=== PATIENT | female | born 1975 | race Caucasian/White ===

== ENCOUNTER 2020-02-04 09:54 | Outpatient (CLI) | payer MEDICARE, MEDICAID, SELFPAY ==
--- NOTE | ~2020-02-04 | XR_ITS ---
XR abdomen/kub 1V 02/04/2020 10:32 INDICATION: Chronic cystitis TECHNIQUE: KUB COMPARISON: None FINDINGS: Bowel gas pattern is normal. There is no evidence of free air, mass, organomegaly, ascites or obstruction. No abnormal calculi are seen. There are cholecystectomy clips. There is dextroscoli osis of the lumbar spine. The bones appear intact. IMPRESSION: 1: No acute abdominal abnormality identified. Reviewed, dictated and finalized at location A.
--- NOTE | ~2020-02-04 | CT_ITS ---
EXAMINATION: CT abdomen pelvis wo con DATE: 02/04/2020 10:27 INDICATION: Chronic cystitis. Lower abdominal and back pain for one month. TECHNIQUE: Computed tomography (CT) of the abdomen and pelvis was performed without intravenous contr ast. Automated exposure control and iterative reconstruction technique were employed. Exam dose: 161 4.80 mGy-cm total exam DLP. COMPARISON: None. FINDINGS: There are minimal focal patchy groundglass infiltrates in the lower lung zones. Normal heart size. No pericardial or pleural effusion. Status post cholecystectomy. No bile duct dilatation. No hepatic, splenic, pancreatic, and adrenal or renal space-occupying mass lesion is evident on this limited noncontrast examination. Normal caliber of the abdominal aorta. No intraperitoneal or retroperitoneal or pelvic mass lesion or adenopathy or ascites. The uterus, adnexal areas and urinary bladder are unremarkable other than moderate diffuse thickening of the urinary bladder wall. No pericystic fat stranding or fluid is noted. There is a small sliding hiatal hernia. Normal appendix. No bowel obstruction, bowel wall thickening, pneumatosis or intraperitoneal free air . Small fat-containing umbilical hernia. There is degenerative change at the apophyseal joints at L5-S1 with associated minimal grade 1 jacques listhesis at L5-S1. There is mild degenerative disc disease at L5-S1. No suspicious osteolytic or osteoblastic lesions are noted. IMPRESSION: Status post cholecystectomy Small sliding hiatal hernia Moderate diffuse thickening of the urinary bladder wall which may be consistent with clinical diagnos is of cystitis Reviewed, dictated and finalized at Location A. Reviewed, dictated and finalized at location A. IMPRESSION: Status post cholecystectomy Small sliding hiatal hernia Moderate diffuse thickening of the urinary bladder wall which may be consistent with clinical diagnosis of cystitis
== END 2020-02-04 09:55 | disposition home or self-care (01) ==
LOC: ANHIMG 10:05
PROVIDERS: PCP Family Medicine; Visit Provider Urology
DX: N30.20 Other chronic cystitis without hematuria (principal); Z90.49 Acquired absence of other specified parts of digestive tract; K44.9 Diaphragmatic hernia without obstruction or gangrene; N32.9 Bladder disorder, unspecified
CPT/HCPCS: 74018; 74176

== ENCOUNTER 2020-04-13 16:00 | Outpatient (RCR) | payer MEDICARE, MEDICAID, SELFPAY ==
--- NOTE | 2020-03-16 14:42 | OTOPEVAL ---
OCCUPATIONAL THERAPY EVALUATION REPORT AND DISCHARGE NOTE 03/16/2020 Mireya presents to outpatient OT with dx of MS. UE strength is WFL. Sitting balance is WFL. Distally, fine motor coordination is moderately impaired in the right hand, WFL in the left hand. Issued fine motor coordination HEP and strengthening program for patient to complete. She is independent with all materials and in agreement with discharge. Thank you [facility] Please review, sign, date and return this Discharge Note TAYLOR. I agree with and certify that the following plan of care is medically necessary. Referring Physician Date Referring Provider: Dr. Vikki Morgan *OT Outpatient Evaluation Start: 03/16/20 13:16 Freq: Status: Active Protocol: Document 03/16/20 13:16 LEXUS (Rec: 03/16/20 14:10 LEXUS [id number]) Therapy Assessment Status Assessment Status Assessment Status Evaluation Outpatient Past Medical History Past Medical History Source of Past Medical History Patient Neurological History Hx Multiple Sclerosis Yes Cardiovascular History Hx Hypercholesterolemia Yes Gastrointestinal History Hx Cholecystectomy Yes Genitourinary History Hx Urinary Tract Infection Yes: Recurrent, self caths Musculoskeletal History Hx Arthritis Yes Hx Fractures Yes: Right LE Evaluation Information Problem Diagnosis MS Onset dx 2001 Subjective Information Mireya states she goes for Query Text:As Reported By Patient/ Tysabri infusions 1x/month. Family Follows up with neurologist every 6 months. States she feels as though she has been getting weaker over the past year. She states that due to COVID she has been less active , getting out less, etc. Prior Level of Function Activity Level (Last 3 Months) Hand Dominance Left Activity of Daily Living Ability Needs Some Help Indoor/Home Mobility Dependent Community Mobility Dependent Stairs Ability Not-Applicable Cooking No Cleaning No Laundry No Shopping No Driving No Home Setting Home Type Apartment,Single Level Environmental Barriers Stairs, None Support Available Hired Assistance [employer] Responsibilities Comment Hired assist 6 days/week for 6 hours/day (except only 3 hrs on Monday) Mobility Assistive Devices (Used Last 3 Wheelchair, Motorized Months) Bathroom Environment
--- NOTE | 2020-03-16 17:06 | PTOPEVAL ---
PHYSICAL THERAPY EVALUATION Thank you for referring Mireya Chapa to [facility].? Mireya was evaluated for the diagnosis of exacerbated MS. The patient is scheduled to be seen for therapy? 2 x/week for 4 weeks. Please review, sign, date and return this plan of care TAYLOR. I agree with and certify that the following plan of care is medically necessary. Referring Physician Date Attending Provider: Dr. Vikki Morgan *PT Outpatient Evaluation Start: 03/16/20 14:20 Freq: Status: Active Protocol: Document 03/16/20 14:28 MLV (Rec: 03/16/20 15:54 [facility] [id number]) Therapy Assessment Status Assessment Status Evaluation Evaluation Information Problem Diagnosis MS exacerbation Onset 6-9 months Cause none Additional Evaluation Detail Patient was diagnosed with MS in 2001-currently the relaxed/ remission type. Patient noticed an increased weakness for 6-9 months. The patient has had home therapy in the past. The patient is concerned about falling from weakness, and patient lives alone. Subjective Information The patient wants to get Query Text:As Reported By Patient/ stronger so safer with Family transfers and home activities. The patient used a walker postpartum nurse until about 6-9 months ago. The patient hopes to use walker some if she can get to that point, and get stronger in her legs. Patient also has a concern about excessive swelling at her legs and inquires about how to fix . Prior Level of Function Activity Level (Last 3 Months) Occupation disability Hand Dominance Left Activity of Daily Living Ability Needs Some Help Indoor/Home Mobility Independent Community Mobility Independent Stairs Ability Not-Applicable Functional Cognition (Planning, Shopping Independent , Taking Medications) Cooking No Cleaning No Laundry No Shopping No Driving No Home Setting Home Type Apartment Environmental Barriers Stairs, None Living Situation Alone Support Available Hired Assistance Ca
--- NOTE | 2020-04-06 13:32 | PCPTNOTE ---
Patient called & cancelled scheduled appointment this date due to transportation issues.
--- NOTE | 2020-04-13 17:34 | PCPTNOTE ---
Patient arrived to therapy for last visit, scheduled to be discharged. General discussion on diagnosis and prognosis answering any further questions patient may have with therapy and discharge plans. Patient stated will call ortho for information on knee replacement and has therapy's phone number for any further questions that may come up in the future.
--- NOTE | 2020-04-15 14:54 | PTOPEVAL ---
PHYSICAL THERAPY DISCHARGE SUMMARY Thank you for referring Mireya Chapa to [facility].? The patient has been seen 4 visits with a dx of MS/weakness with no change in functional ability and no goals are being met. The patient has severe right knee pain with any weightbearing activities. D/C physical therapy. Please review, sign, date and return this plan of care. I agree with and certify the following plan of care. Referring Physician Date Attending Provider: Vikki HumphreysPT Outpatient Discharge Start: 03/16/20 14:20 Freq: Protocol: Document 04/15/20 14:44 MLV (Rec: 04/15/20 14:54 MLV [id number]) Therapy Assessment Status Assessment Status Discharge Evaluation Information Problem Additional Evaluation Detail Discussed extensively details of patient's status and progress with concerns regarding lack of progress or ability to advance because of the patient's severe right knee pain combined with severity of MS status. The patient is unable to tolerate gait/weightbearing activities without severe right knee pain. The patient feels she cannot benefit from skilled PT at this time and plans to talk with her doctor regarding options for the right knee problem. Pain Assessment Timing of Pain Assessment Timing of Pain Assessment Post-Treatment Pain Scale Pain Scale Used Numeric (1 - 10) Self Report Pain Assessment Right Knee(s) Reported Pain Level 2 Pain Frequency Acute Greatest Pain Intensity 10 Pain Aggravating Factors Walking,Weight Bearing/ Standing Pain Behaviors Grimacing,Guarding,Limping Generalized Reported Pain Level 2 Pain Description Aching Pain Frequency Chronic Pain Score Pain Score 2,2: Self Report Interventions Used Interventions Used By Clinicians Education,Position Change Pain Relief Interventions Used By Inactivity/Rest,Position Patient Change,Sitting Lower Extremity Range of Motion General Lower Extremity Range of Motion Limitations Edema,Muscle Weakness,Soft Tissue Restriction Gross Lower Extremity Range of Motion limits remain due to continued Comments tone, swelling and obesity Lower Extremity Muscle Strength Testing General Lower Extremity Strength
== END 2020-04-16 11:55 | disposition home or self-care (01) ==
LOC: ANHPT 16:00
PROVIDERS: PCP Family Medicine
DX: G35 Multiple sclerosis (principal)
CPT/HCPCS: 97110; 97116; 97162; 97165; 97530

== ENCOUNTER 2021-11-19 01:13 | Day surgery (SDC) | payer MEDICARE, MEDICAID, SELFPAY ==
[2021-11-11 12:30] VITALS: BMI 44.2
--- NOTE | 2021-11-11 12:54 | PC.NURSE ---
Report to the Outpatient Waiting Room, entrance under the green pavilion located off [facility], at time 0745 on date 11/19/21. OR Time: 0945. - You and your visitor will be asked a series of questions to screen for COVID 19 for your protection. - Only one visitor is allowed at this time. - The patient visitor is requested to leave or wait in car when not with patient. - A mask is required within the hospital. Patients may have clear liquids (water, carbonated beverages, clear teas, apple juice) until 3 hours prior to surgery with a maximum of 20 ounces. - No food from midnight until time of surgery Take the following medications with a SIP of water the morning of surgery: BACLOFEN, DULOXETINE, VENLAFAXINE Medications to discontinue per physician: VITAMINS/SUPPLEMENTS Date to take last dose: 11/15/21 Please no make-up, nail icelandic, hairspray, perfume, deodorant, or body powder the day of surgery. No jewelry (including any body piercings) or valuables the day of surgery, leave them at home. Please take a shower or bath the night before, or the morning of, surgery with an antibacterial soap. Wear comfortable, loose fitting clothing. - Jewelry must be removed prior to entering the operating room. Rings and piercings that are not removed may be cut off. - The hospital will not accept responsibility for valuables. - Please leave all valuables, including medications, at home the day of surgery. If you are going home after surgery, a licensed medical delivery driver must drive you home. - NO public transportation without another adult. - We recommend that an adult stay with you for 24 hours following discharge. - We also recommend that you do not drive, make important decision, drink alcoholic beverages, or take any drugs that were not prescribed by your health care provider for at least 24 hours after your discharge time. Follow any additional instructions given to you from your surgeon. If you or anyone in your household have experienced Covid symptoms in the past week, please notify your surgeon or the nurse liaison at the phone number below for possible testing. Telephone instructions given to PT - HÉCTOR VILLARREAL and asked if any additional questions and then verbalized understanding. Patient advised to call surgeon office or pre surgery nurse liaison [phone] if any additional questions.
--- NOTE | 2021-11-15 07:50 | PM.IMHP ---
H&P: HPI History of Present Illness Date/Time: 11/15/21 07:50 Chief Complaint: neurogenic bladder Narrative: 45-year-old with neurogenic bladder. She receives Botox 300 units. I can no longer do any office due to mobility issues Review of Systems Review of Systems: All systems reviewed & are unremarkable except as noted in HPI and below PMFSH Social History Social History Smoking packs per day: 0.5 Smoking cigarettes per day: 10.0 Years smoked: 10 Smoking pack-years: 5.00 Smoking status: Former smoker Tobacco type: cigarettes Second hand tobacco smoke exposure: No Additional smoking assessment comments: QUIT MANY YEARS AGO Alcohol intake: never Substance use: never Substance use type: does not use Living arrangements: alone Spiritual care concerns: No Meds Home Medications and Allergies Home Medications Medication Instructions Recorded Confirmed Type ascorbic acid (vitamin C) 500 mg 500 mg PO DAILY 11/11/21 11/11/21 History tablet (Vitamin C) baclofen 20 mg tablet 20 mg PO BID 11/11/21 11/11/21 History calcium carbonate 500 mg calcium 500 mg PO DAILY 11/11/21 11/11/21 History (1,250 mg) tablet cholecalciferol (vitamin D3) 50 50 mcg PO DAILY 11/11/21 11/11/21 History mcg (2,000 unit) capsule (Vitamin D3) duloxetine 60 mg capsule,delayed 60 mg PO BID 11/11/21 11/11/21 History release methylphenidate HCl 10 mg tablet 10 mg PO TID 11/11/21 11/11/21 History methylphenidate HCl 20 mg biphasic 20 mg PO BID 11/11/21 11/11/21 History 30-70 capsule,extended release multivitamin 1 tablet PO DAILY 11/11/21 11/11/21 History venlafaxine 150 mg 150 mg PO DAILY 11/11/21 11/11/21 History capsule,extended release 24 hr venlafaxine 75 mg tablet,extended 75 mg PO DAILY 11/11/21 11/11/21 History release 24 hr Allergies Allergy/AdvReac Type Severity Reaction Status Date / Time adhesive tape Allergy Rash Verified 11/11/21 12:17 Exam Narrative: no acute distress normal breathing alert oriented x3 Assessment and Plan Assessment and plan (1) Uninhibited neurogenic bladder: Code(s): N31.9 - Neuromuscular dysfunction of bladder, unspecified Status: Acute Assessment and Plan: cystoscopy with Botox 300 units. This will be done under local
--- NOTE | 2021-11-19 07:12 | WPDHPUPDATE1 ---
History and Physical Update Update Date/Time: 11/19/21 07:12 History and Physical has been reviewed, including an updated exam of the patient. There are NO changes in the patient's condition. Risks, benefits, and alternatives have been discussed and questions answered. Patient agrees to proceed with procedure.
--- NOTE | 2021-11-19 08:50 | SUR.PREOP ---
pt has elected to change case from GIVS, to LOCAL.
[2021-11-19 08:51] VITALS: BP 124/90; PULSE 76; RESP 14; TEMP 36.9; O2SAT 100
[2021-11-19 09:55] VITALS: BP 152/92; PULSE 73; RESP 14; O2SAT 98
[2021-11-19 10:05] VITALS: BP 148/84; PULSE 72; RESP 14; O2SAT 98
[2021-11-19] MEDS: BOTULINUM TOXIN TYPE A (*SPLP) 100 UNITS VIAL XX (10:09)
[2021-11-19 10:10] VITALS: BP 154/83; PULSE 82; RESP 14; O2SAT 97
[2021-11-19] MEDS: BOTULINUM TOXIN TYPE A (*SPLP) 100 UNITS VIAL 200 UNITS XX (10:10)
--- NOTE | 2021-11-19 10:14 | W.PM.PROC2 ---
Procedure Note - Detailed Date of Procedure 11/19/21 Pre-op Diagnosis Reflex Neuropathic Bladder Post-op Diagnosis Same Procedure Performed Cystoscopy with injection of Botox 300 units Surgeon Raman Tracy MD Aircraft Quality Control Inspector None Anesthesia Local Indications Neurogenic bladder. Does intermittent catheterization. Botox 2 units every 3 months Findings Trabeculated bladder Description of Procedure She was correctly identified. Informed consent obtained. She from the operating room. She was prepped and draped in a sterile fashion. Uro jet was applied. His lead to sit for 10 minutes. I then mixed 3 and units of Botox and 30 cc preservative-free saline. I injected throughout the bladder the sub urothelial muscular layer. There was minimal bleeding from the injection sites. She was then taken to her stretcher and taken to recovery room in stable condition Estimated Blood Loss 1 Drains No Packing No Pathology None sent Complications No immediate complications Condition Stable Disposition PACU
[2021-11-19 10:15] VITALS: BP 117/74; PULSE 58; RESP 14; O2SAT 97
== END 2021-11-19 10:37 | disposition home or self-care (01) ==
PROVIDERS: PCP Family Medicine; Visit Provider Urology
PROC: 3E0K8GC Introduction of Other Therapeutic Substance into Genitourinary Tract, Via Natural or Artificial Opening Endoscopic (ICD-10-PCS; CPT 52287; principal; 2021-11-19 09:45)
DX: N31.9 Neuromuscular dysfunction of bladder, unspecified (principal); Z87.891 Personal history of nicotine dependence
CPT/HCPCS: 52287; A9270; J0585

== ENCOUNTER 2022-03-25 00:17 | Day surgery (SDC) | payer MEDICARE, MEDICAID, SELFPAY ==
[2022-03-10 15:19] VITALS: BMI 44.3
--- NOTE | 2022-03-10 15:30 | PC.NURSE ---
Report to the Outpatient Waiting Room, entrance under the green pavilion located off [facility], at time 1000 on 03/25/2022 . Planned Procedure Time: 1100. Time changes happen often and if your time is changed the preop area will call you the afternoon before. - You and your visitor will be asked to self-screen and do not enter if you have any COVID symptoms. - Only one visitor is requested with a max of two and NO children visitors are allowed at this time. - The patient visitor may be requested to leave or wait in car when not with patient due to distancing restrictions. - A mask is optional within the hospital. NO FOOD/DRINK RESTRICTIONS FOR LOCAL ANESTHESIA. Take the following medications with a SIP of water the morning of surgery: AS PER OFFICE INSTRUCTIONS Medications to discontinue per physician Date to take last dose Please no make-up, nail anguillan, hairspray, perfume, deodorant, or body powder the day of surgery. No jewelry (including any body piercings) or valuables the day of surgery, leave them at home. Please take a shower or bath the night before, or the morning of, surgery with an antibacterial soap. Wear comfortable, loose fitting clothing. - Jewelry must be removed prior to entering the operating room. Rings and piercings that are not removed may be cut off. - The hospital will not accept responsibility for valuables. - Please leave all valuables, including medications, at home the day of surgery. If you are going home after surgery, a licensed bobtail driver must drive you home. - NO public transportation without another adult if you receive anesthesia. - We recommend that an adult stay with you for 24 hours following discharge. - We also recommend that you do not drive, make important decision, drink alcoholic beverages, or take any drugs that were not prescribed by your health care provider for at least 24 hours after your discharge time. Follow any additional instructions given to you from your surgeon. If you or anyone in your household have experienced Covid symptoms in the past week, please notify your surgeon or the nurse liaison at the phone number below for possible testing.I Telephone instructions given to patient and asked if any additional questions and then verbalized understanding. Patient advised to call surgeon office or pre surgery nurse liaison [phone] if any additional questions.
--- NOTE | 2022-03-20 16:54 | P.HP_ITS ---
H&P: HPI History of Present Illness Date/Time: 03/20/22 16:55 Chief Complaint: neurogenic bladder Narrative: botox 300U Review of Systems Review of Systems: All systems reviewed & are unremarkable except as noted in HPI and below PMFSH Past Medical History Medical History Allergies Anxiety Arthritis Asthma Cholecystectomy planned Multiple sclerosis Surgical History Surgical History H/O dilation and curettage S/P Botox injection [place] teeth removed Family History Family History Father Diabetes mellitus Hypertension Depression Anxiety Heart disease Mother Depression Anxiety Multiple sclerosis Grandparent Asthma Diabetes mellitus Alcoholism Cerebrovascular accident Disorder of thyroid Social History Social History Smoking packs per day: 0.5 Smoking cigarettes per day: 10.0 Years smoked: 10 Smoking pack-years: 5.00 Smoking status: Former smoker Tobacco type: cigarettes Second hand tobacco smoke exposure: No Additional smoking assessment comments: QUIT MANY YEARS AGO Alcohol intake: current Alcohol use details: VERY RARE Substance use: never Substance use type: does not use Living arrangements: alone Spiritual care concerns: No Meds Home Medications and Allergies Home Medications Medication Instructions Recorded Confirmed Type ascorbic acid (vitamin C) 500 mg 500 mg PO DAILY 11/11/21 03/10/22 History tablet (Vitamin C) baclofen 20 mg tablet 20 mg PO BID 11/11/21 03/10/22 History calcium carbonate 500 mg calcium 500 mg PO DAILY 11/11/21 03/10/22 History (1,250 mg) tablet cholecalciferol (vitamin D3) 50 50 mcg PO DAILY 11/11/21 03/10/22 History mcg (2,000 unit) capsule (Vitamin D3) duloxetine 60 mg capsule,delayed 60 mg PO BID 11/11/21 03/10/22 History release methylphenidate HCl 20 mg biphasic 20 mg PO BID 11/11/21 03/10/22 History 30-70 capsule,extended release multivitamin 1 tablet PO DAILY 11/11/21 03/10/22 History venlafaxine 150 mg 150 mg PO DAILY 11/11/21 03/10/22 History capsule,extended release 24 hr venlafaxine 75 mg tablet,extended 75 mg PO DAILY 11/11/21 03/10/22 History release 24 hr docusate sodium 100 mg capsule 100 mg PO BID 11/16/21 03/10/22 History (Dulcolax Stool Softener (docusate)) hydrocodone 5 mg-acetaminophen 325 1 tablet PO Q8H PRN Pain 11/16/21 03/10/22 History mg tablet omega-3 fatty acids-fish oil 340 1 cap PO QHS 11/16/21 03/10/22 History mg-1,000 mg capsule (Fish Oil) Allergies Allergy/AdvReac Type Severity Reaction Status Date / Time adhesive tape AdvReac Mild Rash Verified 03/10/22 14:43 Exam Narrative: obese NAD WC A+O x3 Assessment and Plan Assessment and plan (1) Spastic neurogenic bladders: Code(s): N31.8 - Other neuromuscular dysfunction of bladder Status: Acute Assessment and Plan: botox 300U
--- NOTE | 2022-03-25 07:09 | WPDHPUPDATE1 ---
History and Physical Update Update Date/Time: 03/25/22 07:09 History and Physical has been reviewed, including an updated exam of the patient. There are NO changes in the patient's condition. Risks, benefits, and alternatives have been discussed and questions answered. Patient agrees to proceed with procedure.
[2022-03-25 08:45] VITALS: BP 112/75; PULSE 83; RESP 20; TEMP 36.1; O2SAT 96
[2022-03-25 10:45] VITALS: BP 157/85; PULSE 80; RESP 20; O2SAT 100
[2022-03-25] MEDS: BOTULINUM TOXIN TYPE A (*SPLP) 100 UNITS VIAL 300 UNITS XX (10:52)
[2022-03-25 10:53] VITALS: BP 116/57; PULSE 88; RESP 20; O2SAT 96
[2022-03-25 10:59] VITALS: BP 149/84; PULSE 90; RESP 20
--- NOTE | 2022-03-25 11:00 | W.PM.PROC2 ---
Procedure Note - Detailed Date of Procedure 03/25/22 Pre-op Diagnosis neuropathic bladder Post-op Diagnosis Same Procedure Performed cystoscopy with injection of botulinum toxin a 300 units Surgeon Raman Tracy MD Anesthesia MAC and Local Indications She is here today for a repeat Botox injection. We do this every 3 months. 300 units. She completed antibiotics yesterday Description of Procedure there correctly identified. Informed consent obtained. There brought to the operating room. There prepped and draped in sterile fashion. Uro jet was applied. . Time-out performed. Examination of the bladder revealed moderate trabeculations.. I mixed 300 units of Botox with 30 mL of saline. It was injected throughout the bladder in the sub urothelial the muscular layer. Additional 1cc was used to clear the needle. the bladder was drained. There is minimal bleeding under low insufflation pressures. They ere transferred to PACU in stable condition. Implants None Estimated Blood Loss 1 Drains No Packing No Pathology None sent Complications No immediate complications Condition Stable Disposition PACU
== END 2022-03-25 11:19 | disposition home or self-care (01) ==
PROVIDERS: PCP Family Medicine; Visit Provider Urology
PROC: 3E0K8GC Introduction of Other Therapeutic Substance into Genitourinary Tract, Via Natural or Artificial Opening Endoscopic (ICD-10-PCS; CPT 52287; principal; 2022-03-25 10:15)
DX: N31.8 Other neuromuscular dysfunction of bladder (principal); N32.89 Other specified disorders of bladder; J45.909 Unspecified asthma, uncomplicated; G35 Multiple sclerosis; Z87.891 Personal history of nicotine dependence
CPT/HCPCS: 52287; A9270; J0585

== ENCOUNTER 2022-08-15 12:36 | Day surgery (SDC) | payer MEDICARE, MEDICAID, SELFPAY ==
[2022-07-06 14:01] VITALS: BMI 44.3
--- NOTE | 2022-07-06 14:04 | SUR.PREOP ---
Addendum entered by Nicki Andrade RN 08/15/22 09:27: PT TO ARRIVE AT 1230 ON 08/15/22 FOR SURGERY AT 1330. MAY HAVE LIGHT BREAKFAST AND TAKE MEDICATIONS PRESCRIBED. Addendum entered by Milagros Thao RN 07/07/22 15:02: pt may take all home medication up to the day of procedure. pt is a local procedure Original Note: Report to the Outpatient Waiting Room, entrance under the green pavilion located off [facility], at time 07 on date 07/15/22. Planned Procedure Time: 814. Time changes happen often and if your time is changed the preop area will call you the afternoon before. - You and your visitor will be asked to self-screen and do not enter if you have any COVID symptoms. - Only one visitor is requested with a max of two and NO children visitors are allowed at this time. - The patient visitor may be requested to leave or wait in car when not with patient due to distancing restrictions. - A mask is optional within the hospital at this time. Patients may have clear liquids (water, carbonated beverages, clear teas, apple juice) until 3 hours prior to surgery with a maximum of 20 ounces. - No food from midnight until time of surgery - Infants may have breast milk until 4 hours before surgery, infant formula 6 hours prior to surgery. - Children will be allowed to drink immediately following surgery. If applicable, please bring a bottle or sippy cup to assist with drinking. Juice, water, soda, and popsicles are readily available. For infants on formula, please bring formula the day of surgery. Pacifiers are allowed. Take the following medications with a SIP of water the morning of surgery: N/A DO NOT STOP ANY OF YOUR OTHER PRESCRIPTION MEDICATIONS PRIOR TO SURGERY ?EXCEPT THE FOLLOWING Medications to discontinue per physician N/A Date to take last dose Please no make-up, nail scottish, hairspray, perfume, deodorant, or body powder the day of surgery. No jewelry (including any body piercings) or valuables the day of surgery, leave them at home. Please take a shower or bath the night before, or the morning of, surgery with an antibacterial soap. Wear comfortable, loose fitting clothing. Children are encouraged to wear pajamas. - Jewelry must be removed prior to entering the operating room. Rings and piercings that are not removed may be cut off. - The hospital will not accept responsibility for valuables. - Please leave all valuables, including medications, at home the day of surgery. If you are going home after surgery, a licensed cdl b driver must drive you home. - NO public transportation without another adult if you receive anesthesia. - We recommend that an adult stay with you for 24 hours following discharge. - We also recommend that you do not drive, make important decision, drink alcoholic beverages, or take any drugs that were not prescribed by your health care provider for at least 24 hours after your discharge time. For Pediatric surgeries, we recommend two adults accompany the child home. Follow any additional instructions given to you from your surgeon. If you or anyone in your household have experienced Covid symptoms in the past week, please notify your surgeon or the nurse liaison at the phone number below for possible testing. Telephone instructions given to __PATIENT__and asked if any additional questions and then verbalized understanding. Patient advised to call surgeon office or pre surgery nurse liaison [phone] if any additional questions.
--- NOTE | 2022-07-09 08:47 | PM.IMHP ---
H&P: HPI History of Present Illness Date/Time: 07/09/22 08:47 Chief Complaint: Neurogenic bladder Narrative: She has neurogenic bladder. She receives 300s of Botox every 4 months. Review of Systems Review of Systems: All systems reviewed & are unremarkable except as noted in HPI and below PMFSH Past Medical History Medical History Allergies Anxiety Arthritis Asthma Cholecystectomy planned Multiple sclerosis Surgical History Surgical History H/O dilation and curettage S/P Botox injection [place] teeth removed Family History Family History Father Diabetes mellitus Hypertension Depression Anxiety Heart disease Mother Depression Anxiety Multiple sclerosis Grandparent Asthma Diabetes mellitus Alcoholism Cerebrovascular accident Disorder of thyroid Social History Social History Smoking packs per day: 0.5 Smoking cigarettes per day: 10.0 Years smoked: 10 Smoking pack-years: 5.00 Smoking status: Never smoker Tobacco type: cigarettes Second hand tobacco smoke exposure: No Additional smoking assessment comments: QUIT MANY YEARS AGO Alcohol intake: current Alcohol use details: VERY RARE Substance use: never Substance use type: does not use Living arrangements: alone Additional living arrangements comments: 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 A 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 RUSS THAT IS WITH HER DURING THE DAY Spiritual care concerns: No Meds Home Medications and Allergies Home Medications Medication Instructions Recorded Confirmed Type ascorbic acid (vitamin C) 500 mg 500 mg PO DAILY 11/11/21 07/06/22 History tablet (Vitamin C) baclofen 20 mg tablet 20 mg PO BID 11/11/21 07/06/22 History calcium carbonate 500 mg calcium 500 mg PO DAILY 11/11/21 07/06/22 History (1,250 mg) tablet cholecalciferol (vitamin D3) 50 50 mcg PO DAILY 11/11/21 07/06/22 History mcg (2,000 unit) capsule (Vitamin D3) duloxetine 60 mg capsule,delayed 60 mg PO BID 11/11/21 07/06/22 History release methylphenidate HCl 20 mg biphasic 20 mg PO BID 11/11/21 07/06/22 History 30-70 capsule,extended release multivitamin 1 tablet PO DAILY 11/11/21 07/06/22 History venlafaxine 150 mg 150 mg PO DAILY 11/11/21 07/06/22 History capsule,extended release 24 hr venlafaxine 75 mg tablet,extended 75 mg PO DAILY 11/11/21 07/06/22 History release 24 hr docusate sodium 100 mg capsule 100 mg PO BID 11/16/21 07/06/22 History (Dulcolax Stool Softener (docusate)) hydrocodone 5 mg-acetaminophen 325 1 tablet PO Q8H PRN Pain 11/16/21 07/06/22 History mg tablet omega-3 fatty acids-fish oil 340 1 cap PO QHS 11/16/21 07/06/22 History mg-1,000 mg capsule (Fish Oil) Allergies Allergy/AdvReac Type Severity Reaction Status Date / Time adhesive tape AdvReac Mild Rash Verified 04/27/22 15:21 Exam Narrative: Obese Wheelchair-bound No acute distress Assessment and Plan Assessment and plan (1) Uninhibited neurogenic bladder: Code(s): N31.9 - Neuromuscular dysfunction of bladder, unspecified Status: Acute Assessment and Plan: Botox 300 units every 4 months
--- NOTE | 2022-07-14 16:11 | WPDANESEPPF ---
Anes - Initial Pre Proc Eval Procedure: Operation Date: 07/15/22 08:15 Proposed Procedures p Cystoscopy with Botox Injection - Raman Tracy MD Date/Time: 07/14/22 16:11 Surgeon: Raman Tracy MD Pre Op Diagnosis: Neuropathic Bladder Patient Data Age: 46 Gender: F Height: 1.75 m Weight: 136.08 kg Allergies Allergy/AdvReac Type Severity Reaction Status Date / Time adhesive tape AdvReac Mild Rash Verified 04/27/22 15:21 Home Medications Medication Instructions Recorded Confirmed Type ascorbic acid (vitamin C) 500 mg 500 mg PO DAILY 11/11/21 07/06/22 History tablet (Vitamin C) baclofen 20 mg tablet 20 mg PO BID 11/11/21 07/06/22 History calcium carbonate 500 mg calcium 500 mg PO DAILY 11/11/21 07/06/22 History (1,250 mg) tablet cholecalciferol (vitamin D3) 50 50 mcg PO DAILY 11/11/21 07/06/22 History mcg (2,000 unit) capsule (Vitamin D3) duloxetine 60 mg capsule,delayed 60 mg PO BID 11/11/21 07/06/22 History release methylphenidate HCl 20 mg biphasic 20 mg PO BID 11/11/21 07/06/22 History 30-70 capsule,extended release multivitamin 1 tablet PO DAILY 11/11/21 07/06/22 History venlafaxine 150 mg 150 mg PO DAILY 11/11/21 07/06/22 History capsule,extended release 24 hr venlafaxine 75 mg tablet,extended 75 mg PO DAILY 11/11/21 07/06/22 History release 24 hr docusate sodium 100 mg capsule 100 mg PO BID 11/16/21 07/06/22 History (Dulcolax Stool Softener (docusate)) hydrocodone 5 mg-acetaminophen 325 1 tablet PO Q8H PRN Pain 11/16/21 07/06/22 History mg tablet omega-3 fatty acids-fish oil 340 1 cap PO QHS 11/16/21 07/06/22 History mg-1,000 mg capsule (Fish Oil) Results Review: All pre-operative results and documents have been reviewed as part of the pre-operative evaluation. [facility] Past Medical History Medical History (Updated 07/14/22 @ 16:[address] MD) Allergies Anxiety Arthritis Asthma Cholecystectomy planned Hyperlipidemia Morbid obesity with BMI of 40.0-44.9, adult Multiple sclerosis Spastic neurogenic bladders Uninhibited neurogenic bladder Surgical History Surgical History H/O dilation and curettage S/P Botox injection [place] teeth removed Family History Family History Father Diabetes mellitus Hypertension Depression Anxiety Heart disease Mother Depression Anxiety Multiple sclerosis Grandparent Asthma Diabetes mellitus Alcoholism Cerebrovascular accident Disorder of thyroid Social History Social History Smoking packs per day: 0.5 Smoking cigarettes per day: 10.0 Years smoked: 10 Smoking pack-years: 5.00 Smoking status: Never smoker Tobacco type: cigarettes Second hand tobacco smoke exposure: No Additional smoking assessment comments: QUIT MANY YEARS AGO Alcohol intake: current Alcohol use details: VERY RARE Substance use: never Substance use type: does not use Living arrangements: alone Additional living arrangements comments: 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 Informed Consent: The patient's anesthetic plan and its attendant risks and benefits were discussed with the patient/family/POA. Questions were solicited and answers provide
--- NOTE | 2022-07-15 04:36 | WPDHPUPDATE1 ---
History and Physical Update Update Date/Time: 07/15/22 04:36 History and Physical has been reviewed, including an updated exam of the patient. There are NO changes in the patient's condition. Risks, benefits, and alternatives have been discussed and questions answered. Patient agrees to proceed with procedure.
--- NOTE | 2022-08-15 09:26 | PC.NURSE ---
Pt states no changes in medications or health history since initial interview. New pre-op instructions reviewed with pt. Pt denies further questions at this time.
--- NOTE | 2022-08-15 11:25 | PM.IMHP ---
H&P: HPI History of Present Illness Date/Time: 08/15/22 11:25 Chief Complaint: neurogenic bladder Narrative: history of neurogenic bladder. We do Botox 300 units Review of Systems Review of Systems: All systems reviewed & are unremarkable except as noted in HPI and below PMFSH Past Medical History Medical History Allergies Anxiety Arthritis Asthma Cholecystectomy planned Hyperlipidemia Morbid obesity with BMI of 40.0-44.9, adult Multiple sclerosis Spastic neurogenic bladders Uninhibited neurogenic bladder Surgical History Surgical History H/O dilation and curettage S/P Botox injection [place] teeth removed Family History Family History Father Diabetes mellitus Hypertension Depression Anxiety Heart disease Mother Depression Anxiety Multiple sclerosis Grandparent Asthma Diabetes mellitus Alcoholism Cerebrovascular accident Disorder of thyroid Social History Social History Smoking packs per day: 0.5 Smoking cigarettes per day: 10.0 Years smoked: 10 Smoking pack-years: 5.00 Smoking status: Never smoker Tobacco type: cigarettes Second hand tobacco smoke exposure: No Additional smoking assessment comments: QUIT MANY YEARS AGO Alcohol intake: current Alcohol use details: VERY RARE Substance use: never Substance use type: does not use Living arrangements: alone Additional living arrangements comments: 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 THAT IS WITH HER DURING THE DAY Spiritual care concerns: No Meds Home Medications and Allergies Home Medications Medication Instructions Recorded Confirmed Type ascorbic acid (vitamin C) 500 mg 500 mg PO DAILY 11/11/21 08/15/22 History tablet (Vitamin C) baclofen 20 mg tablet 20 mg PO BID 11/11/21 08/15/22 History calcium carbonate 500 mg calcium 500 mg PO DAILY 11/11/21 08/15/22 History (1,250 mg) tablet cholecalciferol (vitamin D3) 50 50 mcg PO DAILY 11/11/21 08/15/22 History mcg (2,000 unit) capsule (Vitamin D3) duloxetine 60 mg capsule,delayed 60 mg PO BID 11/11/21 08/15/22 History release methylphenidate HCl 20 mg biphasic 20 mg PO BID 11/11/21 08/15/22 History 30-70 capsule,extended release multivitamin 1 tablet PO DAILY 11/11/21 08/15/22 History venlafaxine 150 mg 150 mg PO DAILY 11/11/21 08/15/22 History capsule,extended release 24 hr venlafaxine 75 mg tablet,extended 75 mg PO DAILY 11/11/21 08/15/22 History release 24 hr docusate sodium 100 mg capsule 100 mg PO BID 11/16/21 08/15/22 History (Dulcolax Stool Softener (docusate)) hydrocodone 5 mg-acetaminophen 325 1 tablet PO Q8H PRN Pain 11/16/21 08/15/22 History mg tablet omega-3 fatty acids-fish oil 340 1 cap PO QHS 11/16/21 08/15/22 History mg-1,000 mg capsule (Fish Oil) Allergies Allergy/AdvReac Type Severity Reaction Status Date / Time adhesive tape AdvReac Mild Rash Verified 08/15/22 09:26 Exam Narrative: obese wheelchair-bound normal breathing alert and oriented x3 Assessment and Plan Assessment and plan (1) Uninhibited neurogenic bladder: Code(s): N31.9 - Neuromuscular dysfunction of bladder, unspecified Status: Acute Assessment and Plan: cystoscopy with Botox injection 300 units
--- NOTE | 2022-08-15 11:26 | WPDHPUPDATE1 ---
History and Physical Update Update Date/Time: 08/15/22 11:26 History and Physical has been reviewed, including an updated exam of the patient. There are NO changes in the patient's condition. Risks, benefits, and alternatives have been discussed and questions answered. Patient agrees to proceed with procedure.
[2022-08-15 13:35] VITALS: BP 137/77; PULSE 86; RESP 20; O2SAT 98
[2022-08-15] MEDS: BOTULINUM TOXIN TYPE A (*SPLP) 100 UNITS VIAL 300 UNITS XX (13:42)
[2022-08-15] MEDS: LIDOCAINE HCL 2% LOCAL INJ 20 ML VIAL 10 ML INFILTRATE (13:42)
[2022-08-15 13:45] VITALS: BP 137/85; PULSE 84; RESP 18; O2SAT 99
--- NOTE | 2022-08-15 13:54 | W.PM.PROC2 ---
Procedure Note - Detailed Date of Procedure 08/15/22 Pre-op Diagnosis Neuropathic Bladder Post-op Diagnosis Same Procedure Performed cystoscopy with injection of botulinum toxin a 300 units Surgeon Raman Tracy MD Anesthesia MAC Indications this is a patient with urinary incontinence. They are here today for a Botox injection no symptoms on UTI Description of Procedure she was correctly identified. Informed consent obtained. There brought to the operating room. urojet and lidocine was instilled into the bladder. There prepped and draped in sterile fashion. Time-out performed. Examination of the bladder revealed moderate trabeculations. I mixed 300 units of Botox with 30 mL of saline. It was injected throughout the bladder in the sub urothelial the muscular layer. Additional 1cc was used to clear the needle. the bladder was drained. There is minimal bleeding under low insufflation pressures. There awakened and transferred to PACU in stable condition. Implants None Estimated Blood Loss 1 Drains No Packing No Pathology None sent Complications No immediate complications Condition Stable Disposition PACU
[2022-08-15 13:58] VITALS: BP 121/72; PULSE 79; RESP 16; O2SAT 66
== END 2022-08-15 14:38 | disposition home or self-care (01) ==
LOC: ANHSURGERY 12:37
PROVIDERS: PCP Family Medicine; Visit Provider Urology
PROC: 3E0K8GC Introduction of Other Therapeutic Substance into Genitourinary Tract, Via Natural or Artificial Opening Endoscopic (ICD-10-PCS; CPT 52287; principal; 2022-08-15 13:30)
DX: N31.9 Neuromuscular dysfunction of bladder, unspecified (principal); N39.498 Other specified urinary incontinence; G35 Multiple sclerosis; F41.9 Anxiety disorder, unspecified; Z87.891 Personal history of nicotine dependence
CPT/HCPCS: 52287; J0585

== ENCOUNTER 2022-11-21 01:19 | Day surgery (SDC) | payer MEDICARE, SELFPAY ==
[2022-11-10 12:42] VITALS: BMI 43.0
--- NOTE | 2022-11-10 12:51 | PC.NURSE ---
Report to the Outpatient Waiting Room, entrance under the green pavilion located off [facility], at time 1330 on date 11/21/22. Planned Procedure Time: 1430. Time changes happen often and if your time is changed the preop area will call you the afternoon before. - You and your visitor will be asked to self-screen and do not enter if you have any COVID symptoms. - A mask is optional within the hospital at this time. Patients may have LIGHT MEAL. Take the following medications with a SIP of water the morning of surgery: RX'D DO NOT STOP ANY OF YOUR OTHER PRESCRIPTION MEDICATIONS PRIOR TO SURGERY ?EXCEPT THE FOLLOWING Medications to discontinue per physician: N/A Date to take last dose: N/A Please no make-up, nail turkmen, hairspray, perfume, deodorant, or body powder the day of surgery. No jewelry (including any body piercings) or valuables the day of surgery, leave them at home. Please take a shower or bath the night before, or the morning of, surgery with an antibacterial soap. Wear comfortable, loose fitting clothing. - Jewelry must be removed prior to entering the operating room. Rings and piercings that are not removed may be cut off. - The hospital will not accept responsibility for valuables. - Please leave all valuables, including medications, at home the day of surgery. If you are going home after surgery, a licensed truck driver supervisor must drive you home. - NO public transportation without another adult if you receive anesthesia. - We recommend that an adult stay with you for 24 hours following discharge. - We also recommend that you do not drive, make important decision, drink alcoholic beverages, or take any drugs that were not prescribed by your health care provider for at least 24 hours after your discharge time. Follow any additional instructions given to you from your surgeon. If you or anyone in your household have experienced Covid symptoms in the past week, please notify your surgeon or the nurse liaison at the phone number below for possible testing. Telephone instructions given to PT - HÉCTOR VILLARREAL and asked if any additional questions and then verbalized understanding. Patient advised to call surgeon office or pre surgery nurse liaison [phone] if any additional questions.
--- NOTE | 2022-11-20 09:33 | PM.IMHP ---
H&P: HPI History of Present Illness Date/Time: 11/20/22 09:33 Chief Complaint: neurogenic bladder Narrative: neurogenic bladder managed with Botox 300 units in self catheterization. She is chronically colonized Review of Systems Review of Systems: All systems reviewed & are unremarkable except as noted in HPI and below PMFSH Past Medical History Medical History Allergies Anxiety Arthritis Asthma Cholecystectomy planned Hyperlipidemia Morbid obesity with BMI of 40.0-44.9, adult Multiple sclerosis Spastic neurogenic bladders Uninhibited neurogenic bladder Surgical History Surgical History H/O dilation and curettage S/P Botox injection [place] teeth removed Family History Family History Father Diabetes mellitus Hypertension Depression Anxiety Heart disease Mother Depression Anxiety Multiple sclerosis Grandparent Asthma Diabetes mellitus Alcoholism Cerebrovascular accident Disorder of thyroid Social History Social History Smoking packs per day: 0.5 Smoking cigarettes per day: 10.0 Years smoked: 10 Smoking pack-years: 5.00 Smoking status: Former smoker Tobacco type: cigarettes Second hand tobacco smoke exposure: No Additional smoking assessment comments: QUIT MANY YEARS AGO Alcohol intake: never Alcohol use details: VERY RARE Substance use: never Substance use type: does not use Living arrangements: alone Additional living arrangements comments: 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 THAT IS WITH HER DURING THE DAY Spiritual care concerns: No Meds Home Medications and Allergies Home Medications Medication Instructions Recorded Confirmed Type ascorbic acid (vitamin C) 500 mg 500 mg PO DAILY 11/11/21 11/10/22 History tablet (Vitamin C) baclofen 20 mg tablet 20 mg PO BID 11/11/21 11/10/22 History cholecalciferol (vitamin D3) 50 50 mcg PO DAILY 11/11/21 11/10/22 History mcg (2,000 unit) capsule (Vitamin D3) duloxetine 60 mg capsule,delayed 60 mg PO BID 11/11/21 11/10/22 History release methylphenidate HCl 20 mg biphasic 20 mg PO TID 11/11/21 11/10/22 History 30-70 capsule,extended release multivitamin 1 tablet PO DAILY 11/11/21 11/10/22 History venlafaxine 150 mg 150 mg PO DAILY 11/11/21 11/10/22 History capsule,extended release 24 hr venlafaxine 75 mg tablet,extended 75 mg PO DAILY 11/11/21 11/10/22 History release 24 hr docusate sodium 100 mg capsule 100 mg PO BID 11/16/21 11/10/22 History (Dulcolax Stool Softener (docusate)) hydrocodone 5 mg-acetaminophen 325 1 tablet PO Q8H PRN Pain 11/16/21 11/10/22 History mg tablet Allergies Allergy/AdvReac Type Severity Reaction Status Date / Time adhesive tape AdvReac Mild Rash Verified 11/10/22 12:39 Vital Signs no acute distress obese wheelchair bound alert oriented x3 normal breathing Assessment and Plan Assessment and plan (1) Uninhibited neurogenic bladder: Code(s): N31.9 - Neuromuscular dysfunction of bladder, unspecified Status: Acute Assessment and Plan: a cystoscopy with injection of Botox 300 units. She will continue self catheterization. Understands risks of bleeding, infection. Agrees to proceed
--- NOTE | 2022-11-21 12:48 | WPDHPUPDATE1 ---
History and Physical Update Update Date/Time: 11/21/22 12:48 History and Physical has been reviewed, including an updated exam of the patient. There are NO changes in the patient's condition. Risks, benefits, and alternatives have been discussed and questions answered. Patient agrees to proceed with procedure.
[2022-11-21 13:25] VITALS: BMI 44.9
[2022-11-21 13:32] VITALS: BP 126/81; PULSE 81; RESP 18; TEMP 36.6; O2SAT 98
[2022-11-21 14:00] VITALS: BP 167/70; PULSE 79; RESP 16; O2SAT 96
[2022-11-21 14:10] VITALS: BP 143/39; PULSE 76; RESP 18; O2SAT 95
[2022-11-21] MEDS: BOTULINUM TOXIN TYPE A (*SPLP) 100 UNITS VIAL 300 UNITS XX (14:13)
[2022-11-21 14:16] VITALS: BP 152/54; PULSE 79; RESP 18; O2SAT 96
[2022-11-21 14:19] VITALS: BP 114/64; PULSE 76; RESP 16; O2SAT 100
--- NOTE | 2022-11-21 14:24 | W.PM.PROC2 ---
Procedure Note - Detailed Date of Procedure 11/21/22 Pre-op Diagnosis Neuropathic Bladder Uninhibited neurogenic bladder Post-op Diagnosis Same Procedure Performed Cystoscopy with injection of Botox 300 units Surgeon Raman Tracy MD Anesthesia Local Indications This is a woman with multiple sclerosis. She receives Botox 3 units every 3 months. Description of Procedure She was correctly identified. Informed consent obtained. She from the operating room. She was placed in dorsal lithotomy position. She was prepped and draped in a sterile fashion. Time-out performed. Uro jet was applied. He was lead to sit for 5-10 minutes. I then performed cystoscopy. She had moderate trabeculations. No signs of urinary tract infection. No symptoms of urinary tract infection. I mixed 300 units of Botox and 30 cc preservative-free saline. I injected throughout the bladder in the sub urothelial layer. I did not spare the trigone. I did not inject at the ureteral orifice. Additional cc was used to clear the needle. There was minimal bleeding under low insufflation pressures. Her bladder was drained. She was awakened transferred to PACU in stable condition. Estimated Blood Loss 1 Drains No Packing No Pathology None sent Complications No immediate complications Condition Stable Disposition PACU
== END 2022-11-21 15:01 | disposition home or self-care (01) ==
PROVIDERS: PCP Family Medicine; Visit Provider Urology
PROC: 3E0K8GC Introduction of Other Therapeutic Substance into Genitourinary Tract, Via Natural or Artificial Opening Endoscopic (ICD-10-PCS; CPT 52287; principal; 2022-11-21 14:30)
DX: N31.2 Flaccid neuropathic bladder, not elsewhere classified (principal); F41.9 Anxiety disorder, unspecified; J45.909 Unspecified asthma, uncomplicated; G35 Multiple sclerosis; E78.5 Hyperlipidemia, unspecified; Z87.891 Personal history of nicotine dependence; Z79.891 Long term (current) use of opiate analgesic
CPT/HCPCS: 52287; J0585

== ENCOUNTER 2023-03-13 01:04 | Day surgery (SDC) | payer MEDICARE, SELFPAY ==
[2023-03-01 12:53] VITALS: BMI 44.4
--- NOTE | 2023-03-01 13:03 | PC.NURSE ---
Report to the Outpatient Waiting Room, entrance under the green pavilion located off [facility], at time 0730 on date 03/13/23. Planned Procedure Time: 0830. Time changes happen often and if your time is changed the preop area will call you the afternoon before. - You and your visitor will be asked to self-screen and do not enter if you have any COVID symptoms. - A mask is optional within the hospital at this time. Patients may have LIGHT BREAKFAST. Take the following medications with a SIP of water the morning of surgery: PRESCRIBED DO NOT STOP ANY OF YOUR OTHER PRESCRIPTION MEDICATIONS PRIOR TO SURGERY ?EXCEPT THE FOLLOWING Medications to discontinue per physician: N/A Date to take last dose: N/A Please no make-up, nail cuban, hairspray, perfume, deodorant, or body powder the day of surgery. No jewelry (including any body piercings) or valuables the day of surgery, leave them at home. Please take a shower or bath the night before, or the morning of, surgery with an antibacterial soap. Wear comfortable, loose fitting clothing. - Jewelry must be removed prior to entering the operating room. Rings and piercings that are not removed may be cut off. - The hospital will not accept responsibility for valuables. - Please leave all valuables, including medications, at home the day of surgery. If you are going home after surgery, a licensed shuttle van driver must drive you home. - NO public transportation without another adult if you receive anesthesia. - We recommend that an adult stay with you for 24 hours following discharge. - We also recommend that you do not drive, make important decision, drink alcoholic beverages, or take any drugs that were not prescribed by your health care provider for at least 24 hours after your discharge time. Follow any additional instructions given to you from your surgeon. If you or anyone in your household have experienced Covid symptoms in the past week, please notify your surgeon or the nurse liaison at the phone number below for possible testing. Telephone instructions given to PT - HÉCTOR VILLARREAL and asked if any additional questions and then verbalized understanding. Patient advised to call surgeon office or pre surgery nurse liaison [phone] if any additional questions.
--- NOTE | 2023-03-04 18:38 | PM.IMHP ---
H&P: HPI History of Present Illness Date/Time: 03/04/23 18:38 Chief Complaint: NGB Narrative: neurogenic bladder treated with botox Review of Systems Review of Systems: All systems reviewed & are unremarkable except as noted in HPI and below PMFSH Past Medical History Medical History Allergies Anxiety Arthritis Asthma Cholecystectomy planned Hyperlipidemia Morbid obesity with BMI of 40.0-44.9, adult Multiple sclerosis Spastic neurogenic bladders Uninhibited neurogenic bladder Surgical History Surgical History H/O dilation and curettage S/P Botox injection [place] teeth removed Family History Family History Father Diabetes mellitus Hypertension Depression Anxiety Heart disease Mother Depression Anxiety Multiple sclerosis Grandparent Asthma Diabetes mellitus Alcoholism Cerebrovascular accident Disorder of thyroid Social History Social History Smoking packs per day: 0.5 Smoking cigarettes per day: 10.0 Years smoked: 10 Smoking pack-years: 5.00 Smoking status: Former smoker Tobacco type: cigarettes Second hand tobacco smoke exposure: No Additional smoking assessment comments: QUIT MANY YEARS AGO Alcohol intake: never Alcohol use details: VERY RARE Substance use: never Substance use type: does not use Living arrangements: alone Additional living arrangements comments: 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 THAT IS WITH HER DURING THE DAY Spiritual care concerns: No Meds Home Medications and Allergies Home Medications Medication Instructions Recorded Confirmed Type baclofen 20 mg tablet 20 mg PO BID 11/11/21 03/01/23 History cholecalciferol (vitamin D3) 50 50 mcg PO DAILY 11/11/21 03/01/23 History mcg (2,000 unit) capsule (Vitamin D3) duloxetine 60 mg capsule,delayed 60 mg PO DAILY 11/11/21 03/01/23 History release methylphenidate HCl 20 mg biphasic 20 mg PO TID 11/11/21 03/01/23 History 30-70 capsule,extended release multivitamin 1 tablet PO DAILY 11/11/21 03/01/23 History venlafaxine 150 mg 150 mg PO DAILY 11/11/21 03/01/23 History capsule,extended release 24 hr venlafaxine 75 mg tablet,extended 75 mg PO DAILY 11/11/21 03/01/23 History release 24 hr docusate sodium 100 mg capsule 100 mg PO BID 11/16/21 03/01/23 History (Dulcolax Stool Softener (docusate)) hydrocodone 5 mg-acetaminophen 325 1 tablet PO Q8H PRN Pain 11/16/21 03/01/23 History mg tablet diazepam 2 mg tablet 2 mg PO PRN PRN Anxiety 03/01/23 03/01/23 History levofloxacin 750 mg tablet 750 mg PO DAILY 03/01/23 03/01/23 History Allergies Allergy/AdvReac Type Severity Reaction Status Date / Time adhesive tape AdvReac Mild Rash Verified 03/01/23 12:50 Exam Narrative: obese NAD WC Assessment and Plan Assessment and plan (1) Uninhibited neurogenic bladder: Code(s): N31.9 - Neuromuscular dysfunction of bladder, unspecified Status: Acute Assessment and Plan: Botox 300U
--- NOTE | 2023-03-10 10:54 | PM.IMHP ---
H&P: HPI History of Present Illness Date/Time: 03/10/23 10:54 Chief Complaint: neurogenic bladder Narrative: presents for repeat Botox injection Review of Systems Review of Systems: All systems reviewed & are unremarkable except as noted in HPI and below PMFSH Past Medical History Medical History Allergies Anxiety Arthritis Asthma Cholecystectomy planned Hyperlipidemia Morbid obesity with BMI of 40.0-44.9, adult Multiple sclerosis Spastic neurogenic bladders Uninhibited neurogenic bladder Surgical History Surgical History H/O dilation and curettage S/P Botox injection [place] teeth removed Family History Family History Father Diabetes mellitus Hypertension Depression Anxiety Heart disease Mother Depression Anxiety Multiple sclerosis Grandparent Asthma Diabetes mellitus Alcoholism Cerebrovascular accident Disorder of thyroid Social History Social History Smoking packs per day: 0.5 Smoking cigarettes per day: 10.0 Years smoked: 10 Smoking pack-years: 5.00 Smoking status: Former smoker Tobacco type: cigarettes Second hand tobacco smoke exposure: No Additional smoking assessment comments: QUIT MANY YEARS AGO Alcohol intake: never Alcohol use details: VERY RARE Substance use: never Substance use type: does not use Living arrangements: alone Additional living arrangements comments: 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 DURING THE DAY Spiritual care concerns: No Meds Home Medications and Allergies Home Medications Medication Instructions Recorded Confirmed Type baclofen 20 mg tablet 20 mg PO BID 11/11/21 03/01/23 History cholecalciferol (vitamin D3) 50 50 mcg PO DAILY 11/11/21 03/01/23 History mcg (2,000 unit) capsule (Vitamin D3) duloxetine 60 mg capsule,delayed 60 mg PO DAILY 11/11/21 03/01/23 History release methylphenidate HCl 20 mg biphasic 20 mg PO TID 11/11/21 03/01/23 History 30-70 capsule,extended release multivitamin 1 tablet PO DAILY 11/11/21 03/01/23 History venlafaxine 150 mg 150 mg PO DAILY 11/11/21 03/01/23 History capsule,extended release 24 hr venlafaxine 75 mg tablet,extended 75 mg PO DAILY 11/11/21 03/01/23 History release 24 hr docusate sodium 100 mg capsule 100 mg PO BID 11/16/21 03/01/23 History (Dulcolax Stool Softener (docusate)) hydrocodone 5 mg-acetaminophen 325 1 tablet PO Q8H PRN Pain 11/16/21 03/01/23 History mg tablet diazepam 2 mg tablet 2 mg PO PRN PRN Anxiety 03/01/23 03/01/23 History levofloxacin 750 mg tablet 750 mg PO DAILY 03/01/23 03/01/23 History Allergies Allergy/AdvReac Type Severity Reaction Status Date / Time adhesive tape AdvReac Mild Rash Verified 03/01/23 12:50 Vital Signs no acute distress Exam Narrative: wheelchair-bound no acute distress normal breathing Assessment and Plan Assessment and plan (1) Uninhibited neurogenic bladder: Code(s): N31.9 - Neuromuscular dysfunction of bladder, unspecified Status: Acute Assessment and Plan: Botox 300 units
--- NOTE | 2023-03-13 07:08 | WPDHPUPDATE1 ---
History and Physical Update Update Date/Time: 03/13/23 07:08 History and Physical has been reviewed, including an updated exam of the patient. There are NO changes in the patient's condition. Risks, benefits, and alternatives have been discussed and questions answered. Patient agrees to proceed with procedure.
[2023-03-13 08:03] VITALS: BP 141/83; PULSE 87; RESP 14; TEMP 36.2; O2SAT 96
[2023-03-13 08:20] VITALS: BP 129/77; PULSE 85; RESP 16; O2SAT 98
[2023-03-13 08:30] VITALS: BP 139/89; PULSE 89; RESP 20; O2SAT 98
[2023-03-13] MEDS: BOTULINUM TOXIN TYPE A (*SPLP) 100 UNITS VIAL 300 UNITS XX (08:30)
[2023-03-13] MEDS: LIDOCAINE HCL 2% GEL UROJET 10 ML PKG MUCOUS MEM (08:31)
--- NOTE | 2023-03-13 08:35 | W.PM.PROC2 ---
Procedure Note - Detailed Date of Procedure 03/13/23 Pre-op Diagnosis Neuropathic Bladder Post-op Diagnosis Same Procedure Performed Cystoscopy injection of Botox 300 use Surgeon Raman Tracy MD Anesthesia Local ( uro jet) Indications this is a woman with neurogenic bladder secondary to multiple sclerosis. We do 300 units of Botox every 3 months Findings uncomplicated procedure Description of Procedure she was correctly identified. Informed consent obtained. She from the procedure room. She was prepped and draped sterile fashion. She was given lidocaine Uro jet and this was allowed to set. We mixed 300 units of Botox in 30 stent cc preservative-free saline. I performed cystoscopy. She had [id number] trabeculations. Ureteral orifices were normal. No other bladder abnormalities. I injected the Botox throughout the bladder the sub urothelial muscular layer. I spread this out for the entire bladder. I stayed away from the ureteral orifice but did inject the trigone. I used additional cc of clear the needle. There was no significant bleeding from the injection sites. Her bladder was drained. She was awakened transferred to PACU in stable condition. Estimated Blood Loss 1 Complications No immediate complications Condition Stable Disposition PACU
[2023-03-13 08:39] VITALS: BP 132/77; PULSE 75; RESP 16; O2SAT 100
== END 2023-03-13 09:24 | disposition home or self-care (01) ==
PROVIDERS: PCP Family Medicine; Visit Provider Urology
PROC: 3E0K8GC Introduction of Other Therapeutic Substance into Genitourinary Tract, Via Natural or Artificial Opening Endoscopic (ICD-10-PCS; CPT 52287; principal; 2023-03-13 08:30)
DX: N31.9 Neuromuscular dysfunction of bladder, unspecified (principal); G35 Multiple sclerosis; F41.9 Anxiety disorder, unspecified; E78.5 Hyperlipidemia, unspecified; J45.909 Unspecified asthma, uncomplicated; M19.90 Unspecified osteoarthritis, unspecified site; Z79.891 Long term (current) use of opiate analgesic; Z87.891 Personal history of nicotine dependence; Z82.49 Family history of ischemic heart disease and other diseases of the circulatory system
CPT/HCPCS: 52287; J0585

== ENCOUNTER 2023-06-19 00:32 | Day surgery (SDC) | payer MEDICARE, MEDICAID, SELFPAY ==
[2023-06-14 08:09] VITALS: BMI 44.3
--- NOTE | 2023-06-14 08:17 | PC.NURSE ---
Pt is local anesthesia-instructions adjusted accordingly. Report to the Outpatient Waiting Room, entrance under the green pavilion located off [facility], at 0900 on 06/19/23. Planned Procedure Time: 1000. Time changes happen often and if your time is changed the preop area will call you the afternoon before. Time is not to be moved per scheduling note. - You and your visitor will be asked to self-screen and do not enter if you have any COVID symptoms. - A mask is optional within the hospital at this time. Patients may have breakfast and liquids for local procedure. Take the following medications with a SIP of water the morning of surgery: AM meds as usual DO NOT STOP ANY OF YOUR OTHER PRESCRIPTION MEDICATIONS PRIOR TO SURGERY ?EXCEPT THE FOLLOWING Medications to discontinue per physician n/a Date to take last dose n/a Please no make-up, nail taiwanese, hairspray, perfume, deodorant, or body powder the day of surgery. No jewelry (including any body piercings) or valuables the day of surgery, leave them at home. Please take a shower or bath the night before, or the morning of, surgery with an antibacterial soap. Wear comfortable, loose fitting clothing. - Jewelry must be removed prior to entering the operating room. Rings and piercings that are not removed may be cut off. - The hospital will not accept responsibility for valuables. - Please leave all valuables, including medications, at home the day of surgery. Follow any additional instructions given to you from your surgeon. If you or anyone in your household have experienced Covid symptoms in the past week, please notify your surgeon or the nurse liaison at the phone number below for possible testing. Telephone instructions given to patient and asked if any additional questions and then verbalized understanding. Patient advised to call surgeon office or pre surgery nurse liaison [phone] if any additional questions.
--- NOTE | 2023-06-18 10:12 | PM.IMHP ---
H&P: HPI History of Present Illness Date/Time: 06/18/23 10:12 Chief Complaint: Neurogenic bladder Narrative: Presents for repeat Botox injection 300 units Review of Systems Review of Systems: All systems reviewed & are unremarkable except as noted in HPI and below PMFSH Past Medical History Medical History Allergies Anxiety Arthritis Asthma Cholecystectomy planned Hyperlipidemia Morbid obesity with BMI of 40.0-44.9, adult Multiple sclerosis Spastic neurogenic bladders Uninhibited neurogenic bladder Surgical History Surgical History H/O dilation and curettage S/P Botox injection [place] teeth removed Family History Family History Father Diabetes mellitus Hypertension Depression Anxiety Heart disease Carcinoma of colon Mother Depression Anxiety Multiple sclerosis Grandparent Asthma Diabetes mellitus Alcoholism Cerebrovascular accident Disorder of thyroid Social History Social History Smoking packs per day: 0.5 Smoking cigarettes per day: 10.0 Years smoked: 10 Smoking pack-years: 5.00 Smoking status: Former smoker Tobacco type: cigarettes Second hand tobacco smoke exposure: No Additional smoking assessment comments: QUIT MANY YEARS AGO Alcohol intake: current Alcohol use details: very rare Substance use: never Substance use type: does not use Last use: 06/13/00 Living arrangements: alone Additional living arrangements comments: 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 WITH 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 DURING THE DAY Spiritual care concerns: No Meds Home Medications and Allergies Home Medications Medication Instructions Recorded Confirmed Type baclofen 20 mg tablet 20 mg PO BID 11/11/21 06/14/23 History cholecalciferol (vitamin D3) 50 50 mcg PO DAILY 11/11/21 06/14/23 History mcg (2,000 unit) capsule (Vitamin D3) duloxetine 60 mg capsule,delayed 60 mg PO DAILY 11/11/21 06/14/23 History release methylphenidate HCl 20 mg biphasic 20 mg PO TID 11/11/21 06/14/23 History 30-70 capsule,extended release multivitamin 1 tablet PO DAILY 11/11/21 06/14/23 History venlafaxine 150 mg 150 mg PO DAILY 11/11/21 06/14/23 History capsule,extended release 24 hr venlafaxine 75 mg tablet,extended 75 mg PO DAILY 11/11/21 06/14/23 History release 24 hr docusate sodium 100 mg capsule 100 mg PO BID 11/16/21 06/14/23 History (Dulcolax Stool Softener (docusate)) hydrocodone 5 mg-acetaminophen 325 1 tablet PO Q8H PRN Pain 11/16/21 06/14/23 History mg tablet diazepam 2 mg tablet 2 mg PO PRN PRN Anxiety 03/01/23 06/14/23 History Allergies Allergy/AdvReac Type Severity Reaction Status Date / Time adhesive tape AdvReac Mild Rash Verified 06/14/23 08:03 Exam Narrative: No acute distress Normal breathing Wheelchair-bound Assessment and Plan Assessment and plan (1) Uninhibited neurogenic bladder: Code(s): N31.9 - Neuromuscular dysfunction of bladder, unspecified Status: Acute Assessment and Plan: Cystoscopy with Botox 300 units
--- NOTE | 2023-06-19 04:36 | WPDHPUPDATE1 ---
History and Physical Update Update Date/Time: 06/19/23 04:36 History and Physical has been reviewed, including an updated exam of the patient. There are NO changes in the patient's condition. Risks, benefits, and alternatives have been discussed and questions answered. Patient agrees to proceed with procedure.
[2023-06-19 09:05] VITALS: BP 144/80; PULSE 94; RESP 18; TEMP 36.5; O2SAT 100
[2023-06-19 10:48] VITALS: BP 150/93; PULSE 87; RESP 16; O2SAT 98
[2023-06-19 10:57] VITALS: BP 132/71; PULSE 87; RESP 18; O2SAT 97
[2023-06-19] MEDS: BOTULINUM TOXIN TYPE A (*SPLP) 100 UNITS VIAL 200 UNITS XX (11:00)
--- NOTE | 2023-06-19 11:07 | W.PM.PROC2 ---
Procedure Note - Detailed Date of Procedure 06/19/23 Pre-op Diagnosis neuropathic bladder Post-op Diagnosis Same Procedure Performed cystoscopy with injection of botulinum toxin a 300 units Surgeon Raman Tracy MD Anesthesia MAC Indications this is a patient with urinary incontinence. They are here today for a Botox injection We do this in the operating room due to mobility issues Description of Procedure She was correctly identified. Informed consent obtained. There brought to the operating room. Lidocaine jelly was instilled. There prepped and draped in sterile fashion. There were no symptoms of urinary tract infection, but she is chronically colonized.. Time-out performed. Examination of the bladder revealed no redness or erythema. Trabeculations were noted. No bladder tumors.. I mixed 300 units of Botox with 30 mL of saline. It was injected throughout the bladder in the sub urothelial the muscular layer. Additional cc was used to clear the needle. the bladder was drained. There is minimal bleeding under low insufflation pressures. There awakened and transferred to PACU in stable condition. Implants None Estimated Blood Loss 1 Drains No Packing No Pathology None sent Complications No immediate complications Condition Stable Disposition PACU
[2023-06-19 11:13] VITALS: BP 153/95; PULSE 82; RESP 14; O2SAT 99
== END 2023-06-19 11:54 | disposition home or self-care (01) ==
PROVIDERS: PCP Family Medicine; Visit Provider Urology
PROC: 3E0K8GC Introduction of Other Therapeutic Substance into Genitourinary Tract, Via Natural or Artificial Opening Endoscopic (ICD-10-PCS; CPT 52287; principal; 2023-06-19 10:00)
DX: N31.0 Uninhibited neuropathic bladder, not elsewhere classified (principal); F41.9 Anxiety disorder, unspecified; J45.909 Unspecified asthma, uncomplicated; E78.5 Hyperlipidemia, unspecified; R32 Unspecified urinary incontinence; G35 Multiple sclerosis; Z79.891 Long term (current) use of opiate analgesic; Z87.891 Personal history of nicotine dependence; Z82.49 Family history of ischemic heart disease and other diseases of the circulatory system; Z80.0 Family history of malignant neoplasm of digestive organs
CPT/HCPCS: 52287; J0585

== ENCOUNTER 2023-09-25 00:39 | Day surgery (SDC) | payer MEDICARE, MEDICAID, SELFPAY ==
[2023-09-12 09:28] VITALS: BMI 42.9
--- NOTE | 2023-09-12 09:35 | PC.NURSE ---
Report to the Outpatient Waiting Room, entrance under the green pavilion located off [facility], at time _1000_ on date _[id number]_. Planned Procedure Time: _1100_. Time changes happen often and if your time is changed the preop area will call you the afternoon before. - You and your visitor will be asked to self-screen and do not enter if you have any COVID symptoms. - A mask is optional within the hospital at this time. Eat breakfast and take medications as usually do. Please no make-up, nail faroese, hairspray, perfume, deodorant, or body powder the day of surgery. No jewelry (including any body piercings) or valuables the day of surgery, leave them at home. Please take a shower or bath the night before, or the morning of, surgery with an antibacterial soap. Wear comfortable, loose fitting clothing. - Jewelry must be removed prior to entering the operating room. Rings and piercings that are not removed may be cut off. - The hospital will not accept responsibility for valuables. - Please leave all valuables, including medications, at home the day of surgery. Ok to drive. Follow any additional instructions given to you from your surgeon. If you or anyone in your household have experienced Covid symptoms in the past week, please notify your surgeon or the nurse liaison at the phone number below for possible testing. Telephone instructions given to __Amy___and asked if any additional questions and then verbalized understanding. Patient advised to call surgeon office or pre surgery nurse liaison [phone] if any additional questions.
--- NOTE | 2023-09-23 08:29 | PM.IMHP ---
H&P: HPI History of Present Illness Date/Time: 09/23/23 08:29 Chief Complaint: neurogenic bladder Narrative: neurogenic bladder secondary to MS. Here for repeat Botox injection Review of Systems Review of Systems: All systems reviewed & are unremarkable except as noted in HPI and below PMFSH Past Medical History Medical History Allergies Anxiety Arthritis Asthma Cholecystectomy planned Hyperlipidemia Morbid obesity with BMI of 40.0-44.9, adult Multiple sclerosis Spastic neurogenic bladders Uninhibited neurogenic bladder Surgical History Surgical History H/O dilation and curettage S/P Botox injection [place] teeth removed Family History Family History Father Diabetes mellitus Hypertension Depression Anxiety Heart disease Carcinoma of colon Mother Depression Anxiety Multiple sclerosis Grandparent Asthma Diabetes mellitus Alcoholism Cerebrovascular accident Disorder of thyroid Social History Social History Smoking packs per day: 0.5 Smoking cigarettes per day: 10.0 Years smoked: 10 Smoking pack-years: 5.00 Smoking status: Former smoker Tobacco type: cigarettes Second hand tobacco smoke exposure: No Additional smoking assessment comments: QUIT MANY YEARS AGO Alcohol intake: former Alcohol use details: very rare Substance use: never Substance use type: does not use Last use: 06/13/00 Living arrangements: alone Additional living arrangements comments: 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 Spiritual care concerns: No Meds Home Medications and Allergies Home Medications Medication Instructions Recorded Confirmed Type baclofen 20 mg tablet 20 mg PO BID 11/11/21 09/12/23 History cholecalciferol (vitamin D3) 50 50 mcg PO DAILY 11/11/21 09/12/23 History mcg (2,000 unit) capsule (Vitamin D3) duloxetine 60 mg capsule,delayed 60 mg PO DAILY 11/11/21 09/12/23 History release methylphenidate HCl 20 mg biphasic 20 mg PO TID 11/11/21 09/12/23 History 30-70 capsule,extended release multivitamin 1 tablet PO DAILY 11/11/21 09/12/23 History venlafaxine 150 mg 150 mg PO DAILY 11/11/21 09/12/23 History capsule,extended release 24 hr venlafaxine 75 mg tablet,extended 75 mg PO DAILY 11/11/21 09/12/23 History release 24 hr docusate sodium 100 mg capsule 100 mg PO BID 11/16/21 09/12/23 History (Dulcolax Stool Softener (docusate)) hydrocodone 5 mg-acetaminophen 325 1 tablet PO Q8H PRN Pain 11/16/21 09/12/23 History mg tablet diazepam 2 mg tablet 2 mg PO PRN PRN Anxiety 03/01/23 09/12/23 History cranberry extract 250 mg tablet 500 mg PO DAILY 09/12/23 09/12/23 History Allergies Allergy/AdvReac Type Severity Reaction Status Date / Time adhesive tape AdvReac Mild Rash Verified 09/12/23 09:25 Exam Narrative: no acute distress wheelchair-bound alert oriented x3 Assessment and Plan Assessment and plan (1) Uninhibited neurogenic bladder: Code(s): N31.9 - Neuromuscular dysfunction of bladder, unspecified Status: Acute Assessment and Plan: cystoscopy with injection of Botox 300 units
--- NOTE | 2023-09-25 04:40 | WPDHPUPDATE1 ---
History and Physical Update Update Date/Time: 09/25/23 04:40 History and Physical has been reviewed, including an updated exam of the patient. There are NO changes in the patient's condition. Risks, benefits, and alternatives have been discussed and questions answered. Patient agrees to proceed with procedure.
[2023-09-25 10:00] VITALS: BP 154/88; PULSE 86; RESP 16; TEMP 36.6; O2SAT 98
[2023-09-25 10:45] VITALS: BP 159/88; PULSE 80; RESP 16; O2SAT 97
[2023-09-25] MEDS: LIDOCAINE HCL 2% GEL UROJET 10 ML PKG MUCOUS MEM (10:54)
[2023-09-25 10:55] VITALS: BP 141/82; PULSE 78; RESP 20; O2SAT 99
[2023-09-25 11:00] VITALS: BP 139/88; PULSE 82; RESP 20; O2SAT 96
[2023-09-25] MEDS: BOTULINUM TOXIN TYPE A (*SPLP) 100 UNITS VIAL 300 UNITS XX (11:00)
[2023-09-25 11:11] VITALS: BP 151/80; PULSE 82; RESP 12; O2SAT 100
--- NOTE | 2023-09-25 11:14 | W.PM.PROC2 ---
Procedure Note - Detailed Date of Procedure 09/25/23 Pre-op Diagnosis neuropathic bladder Post-op Diagnosis Same Procedure Performed Cystoscopy with Botox injection. 300 units Surgeon Raman Tracy MD Anesthesia Local (Lidocaine jelly) Indications She has neurogenic bladder secondary to MS. She is here today for repeat Botox injection. We do this every 3 months Findings Uncomplicated Botox injection Description of Procedure She was correctly identified. Informed consent obtained. From the operating room. She was given lidocaine jelly. He was allowed to sit. I then performed cystoscopy. She had no significant inflammation in the bladder. Ureteral orifices were normal. I mixed 300 units of Botox and 30 cc preservative-free saline. I injected throughout the bladder in the sub urothelial in muscular layer. She tolerated the procedure well. There was minimal bleeding from the injection sites. She was then taken to recovery room in stable condition once her bladder was drained Estimated Blood Loss 1 Drains No Packing No Pathology None sent Complications No immediate complications Condition Stable Disposition PACU
== END 2023-09-25 11:30 | disposition home or self-care (01) ==
PROVIDERS: PCP Family Medicine; Visit Provider Urology
PROC: 3E0K8GC Introduction of Other Therapeutic Substance into Genitourinary Tract, Via Natural or Artificial Opening Endoscopic (ICD-10-PCS; CPT 52287; principal; 2023-09-25 11:00)
DX: N31.0 Uninhibited neuropathic bladder, not elsewhere classified (principal); G35 Multiple sclerosis; F41.9 Anxiety disorder, unspecified; E66.01 Morbid (severe) obesity due to excess calories; Z68.41 Body mass index [BMI] 40.0-44.9, adult; Z87.891 Personal history of nicotine dependence
CPT/HCPCS: 52287; J0585

== ENCOUNTER 2024-01-08 00:08 | Day surgery (SDC) | payer MEDICARE, MEDICAID, SELFPAY ==
[2023-12-28 14:08] VITALS: BMI 47.9
--- NOTE | 2023-12-28 14:24 | PC.NURSE ---
Report to the Outpatient Waiting Room, entrance under the green pavilion located off [facility], at 0630 on 01/07/25. Planned Procedure Time: 0730.? Time changes happen often and if your time is changed the preop area will call you the afternoon before. - You and your visitor will be asked to self-screen and do not enter if you have any COVID symptoms. Please call surgeon if you need to reschedule. - A mask is optional within the hospital at this time. -Local anesthesia-no food/liquid restrictions unless instructed per Dr. Tracy. -May take medications on the morning of surgery. -Please no make-up, nail micronesian, hairspray, perfume, deodorant, or body powder the day of surgery.? No jewelry (including any body piercings) or valuables the day of surgery, leave them at home.? Please take a shower or bath the night before, or the morning of, surgery with an antibacterial soap.? Wear comfortable, loose fitting clothing.? - Jewelry must be removed prior to entering the operating room.? Rings and piercings that are not removed may be cut off. - The hospital will not accept responsibility for valuables.? - Please leave all valuables, including medications, at home the day of surgery. -Follow any additional instructions given to you from your surgeon. -Telephone instructions given to patient and asked if any additional questions and then verbalized understanding. Patient advised to call surgeon office or pre surgery nurse liaison [phone] if any additional questions.
--- NOTE | 2024-01-07 17:24 | PM.IMHP ---
H&P: HPI History of Present Illness Date/Time: 01/07/24 17:24 Chief Complaint: neurogenic bladder Narrative: Botox 300 units Review of Systems Review of Systems: All systems reviewed & are unremarkable except as noted in HPI and below PMFSH Past Medical History Medical History Allergies Anxiety Arthritis Asthma Cholecystectomy planned Hyperlipidemia Morbid obesity with BMI of 40.0-44.9, adult Multiple sclerosis Spastic neurogenic bladders Uninhibited neurogenic bladder Surgical History Surgical History H/O dilation and curettage S/P Botox injection [place] teeth removed Family History Family History Father Diabetes mellitus Hypertension Depression Anxiety Heart disease Carcinoma of colon Mother Depression Anxiety Multiple sclerosis Grandparent Asthma Diabetes mellitus Alcoholism Cerebrovascular accident Disorder of thyroid Social History Social History Smoking packs per day: 0.5 Smoking cigarettes per day: 10.0 Years smoked: 10 Smoking pack-years: 5.00 Smoking status: Former smoker Tobacco type: cigarettes Second hand tobacco smoke exposure: No Additional smoking assessment comments: many years ago-provides no further info Alcohol intake: former Alcohol use details: very rare Substance use: former Substance use type: marijuana Last use: years ago Living arrangements: alone Additional living arrangements comments: 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 THAT IS WITH HER DURING THE DAY Spiritual care concerns: No Meds Home Medications and Allergies Home Medications Medication Instructions Recorded Confirmed Type baclofen 20 mg tablet 20 mg PO BID 11/11/21 12/28/23 History cholecalciferol (vitamin D3) 50 50 mcg PO DAILY 11/11/21 12/28/23 History mcg (2,000 unit) capsule (Vitamin D3) duloxetine 60 mg capsule,delayed 60 mg PO DAILY 11/11/21 12/28/23 History release methylphenidate HCl 20 mg biphasic 20 mg PO TID 11/11/21 12/28/23 History 30-70 capsule,extended release multivitamin 1 tablet PO DAILY 11/11/21 12/28/23 History venlafaxine 150 mg 150 mg PO DAILY 11/11/21 12/28/23 History capsule,extended release 24 hr venlafaxine 75 mg tablet,extended 75 mg PO DAILY 11/11/21 12/28/23 History release 24 hr docusate sodium 100 mg capsule 100 mg PO BID 11/16/21 12/28/23 History (Dulcolax Stool Softener (docusate)) hydrocodone 5 mg-acetaminophen 325 1 tablet PO Q8H PRN Pain 11/16/21 12/28/23 History mg tablet diazepam 2 mg tablet 2 mg PO PRN PRN Anxiety 03/01/23 12/28/23 History cranberry extract 250 mg tablet 500 mg PO DAILY 09/12/23 12/28/23 History Allergies Allergy/AdvReac Type Severity Reaction Status Date / Time adhesive tape AdvReac Mild Rash Verified 12/28/23 14:06 Exam Narrative: wheelchair-bound Assessment and Plan Assessment and plan (1) Uninhibited neurogenic bladder: Code(s): N31.9 - Neuromuscular dysfunction of bladder, unspecified Status: Acute Assessment and Plan: cystoscopy with Botox 300 units
[2024-01-08 07:10] VITALS: BP 141/81; PULSE 81; TEMP 36.4; O2SAT 100; BMI 44.4
--- NOTE | 2024-01-08 07:15 | WPDHPUPDATE1 ---
History and Physical Update Update Date/Time: 01/08/24 07:15 History and Physical has been reviewed, including an updated exam of the patient. There are NO changes in the patient's condition. Risks, benefits, and alternatives have been discussed and questions answered. Patient agrees to proceed with procedure.
--- NOTE | 2024-01-08 07:31 | W.PM.PROC2 ---
Procedure Note - Detailed Date of Procedure 01/08/24 Pre-op Diagnosis neuropathic bladder Post-op Diagnosis Same Procedure Performed cystoscopy with injection of botulinum toxin a 300 units Surgeon Raman Tracy MD Anesthesia MAC Indications this is a patient with urinary incontinence. They are here today for a Botox injection Description of Procedure She was correctly identified. Informed consent obtained. There brought to the operating room. UroJet was applied. She prepped and draped in sterile fashion. A Time-out performed. Examination of the bladder revealed no significant findings. I mixed 300 units of Botox with 30 mL of saline. It was injected throughout the bladder in the sub urothelial the muscular layer. Additional 1 cc was used to clear the needle. the bladder was drained. There is minimal bleeding under low insufflation pressures. She was awakened and transferred to PACU in stable condition. Implants None Estimated Blood Loss 1 Drains No Packing No Pathology None sent Complications No immediate complications Condition Stable Disposition PACU
[2024-01-08 07:41] VITALS: BP 158/79; PULSE 80; RESP 16; O2SAT 100
[2024-01-08 07:46] VITALS: BP 140/88; PULSE 82; RESP 16; O2SAT 100
[2024-01-08 07:51] VITALS: BP 138/81; PULSE 77; RESP 18; O2SAT 100
[2024-01-08] MEDS: BOTULINUM TOXIN TYPE A (*SPLP) 100 UNITS VIAL 200 UNITS XX (07:55)
[2024-01-08 07:56] VITALS: BP 152/77; PULSE 92; RESP 18; O2SAT 100
[2024-01-08 08:05] VITALS: BP 129/78; PULSE 78; RESP 20; O2SAT 99
== END 2024-01-08 08:35 | disposition home or self-care (01) ==
PROVIDERS: PCP Family Medicine; Visit Provider Urology
PROC: 3E0K8GC Introduction of Other Therapeutic Substance into Genitourinary Tract, Via Natural or Artificial Opening Endoscopic (ICD-10-PCS; CPT 52287; principal; 2024-01-08 07:30)
DX: N31.9 Neuromuscular dysfunction of bladder, unspecified (principal); N39.498 Other specified urinary incontinence; G35 Multiple sclerosis; E78.5 Hyperlipidemia, unspecified; J45.909 Unspecified asthma, uncomplicated; F41.9 Anxiety disorder, unspecified; E66.01 Morbid (severe) obesity due to excess calories; Z68.41 Body mass index [BMI] 40.0-44.9, adult; Z87.891 Personal history of nicotine dependence
CPT/HCPCS: 52287; J0585

== ENCOUNTER 2024-04-22 00:08 | Day surgery (SDC) | payer MEDICARE, MEDICAID, SELFPAY ==
[2024-04-12 14:13] VITALS: BMI 44.4
--- NOTE | 2024-04-12 14:14 | PC.NURSE ---
Report to the Outpatient Waiting Room, entrance under the green pavilion located off [facility], at time _0700_ on date _[id number]_. Planned Procedure Time: _0800_.? Time changes happen often and if your time is changed the preop area will call you the afternoon before. - You and your visitor will be asked to self-screen and do not enter if you have any COVID symptoms. Please call surgeon if you need to reschedule. - A mask is optional within the hospital at this time. Ok for Light breakfast Take only the following medications with a SIP of water on the morning of surgery: ___Take medications as usually do.___ DO NOT STOP ANY OF YOUR OTHER PRESCRIPTION MEDICATIONS PRIOR TO SURGERY EXCEPT THE FOLLOWING Medications to discontinue per physician None Date to take last dose Please no make-up, nail kazakh, hairspray, perfume, deodorant, or body powder the day of surgery.? No jewelry (including any body piercings) or valuables the day of surgery, leave them at home.? Please take a shower or bath the night before, or the morning of, surgery with an antibacterial soap.? Wear comfortable, loose fitting clothing.? - Jewelry must be removed prior to entering the operating room.? Rings and piercings that are not removed may be cut off. - The hospital will not accept responsibility for valuables.? - Please leave all valuables, including medications, at home the day of surgery. If you are going home after surgery, a licensed dump truck driver off highway must drive you home.? - NO public transportation without another adult if you receive anesthesia. - We recommend that an adult stay with you for 24 hours following discharge. - We also recommend that you do not drive, make important decision, drink alcoholic beverages, or take any drugs that were not prescribed by your health care provider for at least 24 hours after your discharge time. Follow any additional instructions given to you from your surgeon. Telephone instructions given to __Amy__and asked if any additional questions and then verbalized understanding. Patient advised to call surgeon office or pre surgery nurse liaison [phone] if any additional questions.
--- NOTE | 2024-04-19 10:35 | PM.IMHP ---
H&P: HPI History of Present Illness Date/Time: 04/19/24 10:35 Chief Complaint: neurogenic bladder Narrative: neurogenic bladder. Botox and intermittent catheterization Review of Systems Review of Systems: All systems reviewed & are unremarkable except as noted in HPI and below [facility] Past Medical History Medical History Morbid obesity with BMI of 40.0-44.9, adult Hyperlipidemia Spastic neurogenic bladders Cholecystectomy planned Multiple sclerosis Arthritis Anxiety Asthma Allergies Uninhibited neurogenic bladder Surgical History Surgical History [place] teeth removed H/O dilation and curettage S/P Botox injection Family History Family History Father Diabetes mellitus Hypertension Depression Anxiety Heart disease Carcinoma of colon Mother Depression Anxiety Multiple sclerosis Grandparent Asthma Diabetes mellitus Alcoholism Cerebrovascular accident Disorder of thyroid Social History Social History Smoking packs per day: 0.5 Smoking cigarettes per day: 10.0 Years smoked: 10 Smoking pack-years: 5.00 Smoking status: Never smoker Tobacco type: cigarettes Second hand tobacco smoke exposure: No Additional smoking assessment comments: many years ago-provides no further info Alcohol intake: former Alcohol use details: very rare Substance use: former Substance use type: marijuana Last use: years ago Living arrangements: alone Additional living arrangements comments: 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 THAT IS WITH HER DURING THE DAY Spiritual care concerns: No Meds Home Medications and Allergies Home Medications ?Medication ?Instructions ?Recorded ?Confirmed ?Type baclofen 20 mg tablet 20 mg PO BID 11/11/21 04/12/24 History cholecalciferol (vitamin D3) 50 50 mcg PO DAILY 11/11/21 04/12/24 History mcg (2,000 unit) capsule (Vitamin D3) duloxetine 60 mg capsule,delayed 60 mg PO DAILY 11/11/21 04/12/24 History release methylphenidate HCl 20 mg biphasic 20 mg PO TID 11/11/21 04/12/24 History 30-70 capsule,extended release multivitamin 1 tablet PO DAILY 11/11/21 04/12/24 History venlafaxine 150 mg 150 mg PO DAILY 11/11/21 04/12/24 History capsule,extended release 24 hr venlafaxine 75 mg tablet,extended 75 mg PO DAILY 11/11/21 04/12/24 History release 24 hr docusate sodium 100 mg capsule 100 mg PO BID 11/16/21 04/12/24 History (Dulcolax Stool Softener (docusate)) hydrocodone 5 mg-acetaminophen 325 1 tablet PO Q8H PRN Pain 11/16/21 04/12/24 History mg tablet diazepam 2 mg tablet 2 mg PO PRN PRN Anxiety 03/01/23 04/12/24 History cranberry extract 250 mg tablet 500 mg PO DAILY 09/12/23 04/12/24 History Allergies Allergy/AdvReac Type Severity Reaction Status Date / Time adhesive tape AdvReac Mild Rash Verified 04/12/24 14:02 Exam Narrative: no acute distress wheelchair-bound Assessment and Plan Assessment and plan (1) Morbid obesity with BMI of 40.0-44.9, adult: Code(s): E66.01 - Morbid (severe) obesity due to excess calories; Z68.41 - Body mass index [BMI] 40.0-44.9, adult Status: Acute Assessment and Plan: cystoscopy with Botox 300 units
--- NOTE | 2024-04-22 07:15 | WPDHPUPDATE1 ---
History and Physical Update Update Date/Time: 04/22/24 07:15 History and Physical has been reviewed, including an updated exam of the patient. There are NO changes in the patient's condition. Risks, benefits, and alternatives have been discussed and questions answered. Patient agrees to proceed with procedure.
[2024-04-22 07:19] VITALS: BP 148/77; PULSE 122; RESP 18; TEMP 36.6; O2SAT 100
[2024-04-22 07:23] VITALS: PULSE 82
[2024-04-22 08:05] VITALS: BP 153/86; PULSE 81; RESP 18; O2SAT 97
[2024-04-22] MEDS: BOTULINUM TOXIN TYPE A (*SPLP) 100 UNITS VIAL 300 UNITS XX (08:12)
[2024-04-22 08:15] VITALS: BP 140/80; PULSE 80; RESP 18; O2SAT 98
[2024-04-22 08:20] VITALS: BP 169/71; PULSE 87; RESP 18; O2SAT 97
[2024-04-22 08:25] VITALS: BP 139/71; PULSE 82; RESP 16; O2SAT 99
--- NOTE | 2024-04-22 09:55 | W.PM.PROC2 ---
Procedure Note - Detailed Date of Procedure 04/22/24 Pre-op Diagnosis Uninhibited neurogenic bladder Post-op Diagnosis Same Procedure Performed cystoscopy with injection of Botox 300 units Surgeon Raman Tracy MD Anesthesia Local Indications although neurogenic bladder she does self catheterization. She has no symptoms of infection today. She is here today for her Pradaxa 100 units. We do this every 3 Findings uncomplicated Botox injection Description of Procedure she was correctly identified. Informed consent obtained brief from the operating room. She was given Uro jet per urethra and allowed to sit for 5-10 minutes. I mixed 300 units of Botox and 30 cc was earlier free saline. On cystoscopy she had no significant bladder abnormalities. Ureteral orifices were normal. No redness or signs of infection. I injected my Botox in the bladder. I did a total of 25-30 injections. I did this in the sub urothelial muscular layer. Additional cc was used to flush the needle. Her bladder was drained. She was taken recovery room in stable condition Estimated Blood Loss 0 Drains No Pathology None sent Complications No immediate complications Condition Stable
== END 2024-04-22 08:56 | disposition home or self-care (01) ==
PROVIDERS: PCP Family Medicine; Visit Provider Urology
PROC: 3E0K8GC Introduction of Other Therapeutic Substance into Genitourinary Tract, Via Natural or Artificial Opening Endoscopic (ICD-10-PCS; CPT 52287; principal; 2024-04-22 08:00)
DX: N31.0 Uninhibited neuropathic bladder, not elsewhere classified (principal); E78.5 Hyperlipidemia, unspecified; G35 Multiple sclerosis; M19.90 Unspecified osteoarthritis, unspecified site; F41.9 Anxiety disorder, unspecified; J45.909 Unspecified asthma, uncomplicated; E66.01 Morbid (severe) obesity due to excess calories; Z68.41 Body mass index [BMI] 40.0-44.9, adult; Z98.890 Other specified postprocedural states; Z80.0 Family history of malignant neoplasm of digestive organs; Z82.49 Family history of ischemic heart disease and other diseases of the circulatory system
CPT/HCPCS: 52287; J0585

== ENCOUNTER 2024-08-09 00:31 | Day surgery (SDC) | payer MEDICARE, MEDICAID, SELFPAY ==
[2024-07-30 10:37] VITALS: BMI 48.0
--- NOTE | 2024-07-30 10:45 | PC.NURSE ---
Report to the Outpatient Waiting Room, entrance under the green pavilion located off [facility], at time _0730_ on date _[id number]_. Planned Procedure Time: _0830_.? Time changes happen often and if your time is changed the preop area will call you the afternoon before. - You and your visitor will be asked to self-screen and do not enter if you have any COVID symptoms. Please call surgeon if you need to reschedule. - A mask is optional within the hospital at this time. No smoking, or chewing tobacco (or any form of nicotine). Ok for light breakfast Take only the following medications with a SIP of water on the morning of surgery: ___Medications OK____ DO NOT STOP ANY OF YOUR OTHER PRESCRIPTION MEDICATIONS PRIOR TO SURGERY EXCEPT THE FOLLOWING Hold all vitamins and supplements for 3 days per anesthesiologist. Medications to discontinue per physician Date to take last dose Please no make-up, nail pashto, hairspray, perfume, deodorant, or body powder the day of surgery.? No jewelry (including any body piercings) or valuables the day of surgery, leave them at home.? Please take a shower or bath the night before, or the morning of, surgery with an antibacterial soap.? Wear comfortable, loose fitting clothing.? - Jewelry must be removed prior to entering the operating room.? Rings and piercings that are not removed may be cut off. - The hospital will not accept responsibility for valuables.? - Please leave all valuables, including medications, at home the day of surgery. Ok to do what you feel like doing after surgery. Follow any additional instructions given to you from your surgeon. Telephone instructions given to __Amy__and asked if any additional questions and then verbalized understanding. Patient advised to call surgeon office or pre surgery nurse liaison [phone] if any additional questions.
--- NOTE | 2024-08-05 04:45 | PM.IMHP ---
H&P: HPI History of Present Illness Date/Time: 08/05/24 04:45 Chief Complaint: Neurogenic bladder Narrative: repeat treatment with Botox Review of Systems Review of Systems: All systems reviewed & are unremarkable except as noted in HPI and below PMFSH Past Medical History Medical History Morbid obesity with BMI of 40.0-44.9, adult Hyperlipidemia Spastic neurogenic bladders Cholecystectomy planned Multiple sclerosis Arthritis Anxiety Asthma Allergies Uninhibited neurogenic bladder Surgical History Surgical History [place] teeth removed H/O dilation and curettage S/P Botox injection Family History Family History Father Diabetes mellitus Hypertension Depression Anxiety Heart disease Carcinoma of colon Mother Depression Anxiety Multiple sclerosis Grandparent Asthma Diabetes mellitus Alcoholism Cerebrovascular accident Disorder of thyroid Social History Social History Smoking packs per day: 0.5 Smoking cigarettes per day: 10.0 Years smoked: 3 Smoking pack-years: 1.50 Smoking status: Former smoker Tobacco type: cigarettes Second hand tobacco smoke exposure: No Smoking end date: 07/30/98 Additional smoking assessment comments: many years ago-provides no further info Alcohol intake: former Alcohol use details: very rare Substance use: former Substance use type: marijuana Last use: years ago Living arrangements: alone Additional living arrangements comments: 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 DAY Spiritual care concerns: No Meds Home Medications and Allergies Home Medications ?Medication ?Instructions ?Recorded ?Confirmed ?Type baclofen 20 mg tablet 20 mg PO BID 11/11/21 07/30/24 History cholecalciferol (vitamin D3) 50 50 mcg PO DAILY 11/11/21 07/30/24 History mcg (2,000 unit) capsule (Vitamin D3) duloxetine 60 mg capsule,delayed 60 mg PO DAILY 11/11/21 07/30/24 History release methylphenidate HCl 20 mg biphasic 20 mg PO TID 11/11/21 07/30/24 History 30-70 capsule,extended release multivitamin 1 tablet PO DAILY 11/11/21 07/30/24 History venlafaxine 150 mg 150 mg PO DAILY 11/11/21 07/30/24 History capsule,extended release 24 hr venlafaxine 75 mg tablet,extended 75 mg PO DAILY 11/11/21 07/30/24 History release 24 hr docusate sodium 100 mg capsule 100 mg PO BID 11/16/21 07/30/24 History (Dulcolax Stool Softener (docusate)) hydrocodone 5 mg-acetaminophen 325 1 tablet PO Q8H PRN Pain 11/16/21 07/30/24 History mg tablet diazepam 2 mg tablet 2 mg PO PRN PRN Anxiety 03/01/23 07/30/24 History cranberry extract 250 mg tablet 500 mg PO DAILY 09/12/23 07/30/24 History Allergies Allergy/AdvReac Type Severity Reaction Status Date / Time adhesive tape AdvReac Mild Rash Verified 07/30/24 10:36 Exam Narrative: wheelchair-bound no acute distress Assessment and Plan Assessment and plan (1) Uninhibited neurogenic bladder: Code(s): N31.9 - Neuromuscular dysfunction of bladder, unspecified Status: Acute Assessment and Plan: cystoscopy with injection of Botox 300 units
--- OUTSIDE RECORDS SUMMARY | 2024-08-09 00:35 | XMS_ITS ---
Author Name Auto Generated, Auto Generated Organization [facility] Address [address] [place] [address] Phone [phone] Care Team Providers Care Analytical Lead Name Role Phone Vikki Morgan Unavailable [phone] Functional Status Mental Status Allergies and Intolerances Problems Reason for Referral Past Medical History
--- OUTSIDE RECORDS SUMMARY | 2024-08-09 00:35 | XMS_ITS | Encounter Summary ---
Author Organization [facility] Address [address] [place] [address] Care Team Providers Care Social Services Name Role Phone Jerardo Palmer MD Primary Care Provider [phone] Encounter Details Date Type Department Care Team (Late st Contact Info) Description 08/03/2001 Outpatient Historical Division of Neurology [address] [address] Vikki Morgan MD [address] [facility] [address] [place] [address] Social History Tobacco Use Types Packs/Day Years Used Date Smoking Tobacco: Never Assessed Comments Unknown Sex and Gender Information Value Date Recorded Sex Assigned at Not on file 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 Gender Identity Not on file Sexual Orientation Not on file documented as of this encounter Plan of Treatment Not on file documented as of this encounter Visit Diagnoses Not on filedocumented in this encounter Additional Health Concerns Infection Onset Date Last Indicated Resolved Time MRSA Comment:elizabeth 11/02/2012Resolved per Type and Duration of Precautions Recommended for Selected Infections and Conditions document 2023 update 11/05/2012 11/05/201212/09 10:08 AM CDT documented as of this encounter Care Teams Social Services Relationship Specialty Start Date End Date Jerardo Palmer MD [address] [place] [phone] PCP - General Internal Medicine 02/05/14 documented as of this encounter
--- OUTSIDE RECORDS SUMMARY | 2024-08-09 00:35 | XMS_ITS | Encounter Summary ---
Author Organization [facility] Address [address] [place] [address] Care Team Providers Care Heat Treat Operator Name Role Phone Jerardo Palmer MD Primary Care Provider [phone] Encounter Details Date Type Department Care Team (Late st Contact Info) Description 09/11/2006 Outpatient Historical Division of Neurology [address] [address] Vikki Morgan MD [address] [facility] [address] [place] [address] Social History Tobacco Use Types Packs/Day Years Used Date Smoking Tobacco: Never Assessed Comments Unknown Sex and Gender Information Value Date Recorded Sex Assigned at Not on file 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
--- OUTSIDE RECORDS SUMMARY | 2024-08-09 00:35 | XMS_ITS | Encounter Summary ---
Author Organization [facility] Address [address] [place] [address] Care Team Providers Care Criminal Justice Faculty Name Role Phone Jerardo Palmer MD Primary Care Provider [phone] Encounter Details Date Type Department Care Team (Latest Contact Info) Description 04/09/2003 Outpatient [facility] [address] & [place] [address] Vikki Morgan MD [address] [address] MULTIPLE SCLEROSIS (CMS/HCC) (Primary Dx) Social History Tobacco Use Types Packs/Day Years Used Date Smoking Tobacco: Never Assessed Comments Unknown Sex and Gender Information Value Date Recorded Sex Assigned at Not on file 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 Gender Identity Not on file Sexual Orientation Not on file documented as of this encounter Plan of Treatment Not on file documented as of this encounter Visit Diagnoses Diagnosis Multiple sclerosis (CMS/HCC)- Primary Multiple sclerosis documented in this encounter Additional Health Concerns Infection Onset Date Last Indicated Resolved Time MRSA Comment:elizabeth 11/02/2012Resolved per Type and Duration of Precautions Recommended for Selected Infections and Conditions document 2023 update 11/05/2012 11/05/201212/09 10:08 AM CDT documented as of this encounter Care Teams Criminal Justice Faculty Relationship Specialty Start Date End Date Jerardo Palmer MD [address] [place] [address] PCP - General Internal Medicine 02/05/14 documented as of this encounter
--- OUTSIDE RECORDS SUMMARY | 2024-08-09 00:35 | XMS_ITS | Encounter Summary ---
Author Organization [facility] Address [address] [place] [address] Care Team Providers Care Carpet Measurer Name Role Phone Jerardo Palmer MD Primary Care Provider [phone] Encounter Details Date Type Department Care Team (Late st Contact Info) Description 01/27/1999 Outpatient Historical [facility] [address] [place] [address] Mireya Vega MD [address] [facility] [address] [place] [address] Social History Tobacco Use Types Packs/Day Years Used Date Smoking Tobacco: Never Assessed Comments Unknown Sex and Gender Information Value Date Recorded Sex Assigned at Not on file 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
--- OUTSIDE RECORDS SUMMARY | 2024-08-09 00:35 | XMS_ITS | Encounter Summary ---
Author Organization [facility] Address [address] [place] [address] Care Team Providers Care Access Nurse Name Role Phone Jerardo Palmer MD Primary Care Provider [phone] Encounter Details Date Type Department Care Team (Late st Contact Info) Description 01/15/2007 Outpatient Historical [place] 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
--- OUTSIDE RECORDS SUMMARY | 2024-08-09 00:35 | XMS_ITS | Encounter Summary ---
Author Organization [employer] Address [address] [place] [address] Care Team Providers Care Credit Relationship Manager Name Role Phone Jerardo Palmer MD Primary Care Provider [phone] Encounter Details Date Type Department Care Team (Late st Contact Info) Description 01/25/2007 Outpatient Historical [place] [id number] [facility] [address] 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
--- OUTSIDE RECORDS SUMMARY | 2024-08-09 00:35 | XMS_ITS | Continuity of Care Document ---
Author Organization [facility] Address [address] [place] [address] [place] [address] Phone Care Team Providers Care Drywall Sprayer Name Role Phone Norris Nolasco MD Unavailable Unavailable Allergies, Adverse Reactions, Alerts Substance Reaction Status Criticality No Known Allergies Active No Inform ation Medications Medication Instructions Dosage Effective Dates (start - stop) Status Comments Vicodin 5 mg-500 mg tablet take 1 tablet by oral route every 4 - 6 hours as needed for pain - Active PRN for pain, avoid driving or operate machines baclofen 20 mg tablet take 1 tablet (20MG) by oral route 3 times every day as needed 20 MG - Active avoid driving or operate machines Colace 100 mg capsule take 1 capsule (100MG) by oral route every 12 hours 100 MG - Active Norvasc 10 mg tablet take 1 tablet (10MG) by oral route every day 10 MG - Active venlafaxine 75 mg tablet take 1 tablet (75MG) by oral route 3 times every day with food 75 MG - Active Synthroid 25 mcg tablet take 1 tablet (25MCG) by oral route every day 25 MCG - Active Procedures Procedure Date OFFICE/OUTPATIENT VISIT, EST OFFICE/OUTPATIENT VISIT, EST OFFICE/OUTPATIENT VISIT, NEW Advance Directives Directive Yes / No Effective Date File Name No Information Encounters Encounter Description Practice Location Reason(s) For Visit Diagnoses Date Provider Providers Copied on Encounter [facility], [address] [place], [id number], [place] tel:[phone] [facility] No Information [address] Gaurav Pisano. [address], [place], [place], [id number] , [place]. tel:[phone] Referring Provider: Norris Nolasco, [address], [place], [place], [id number]. tel:[phone] OFFICE/OUTPA TIENT VISIT, [facility], [address], [place], [place], [address], [place] [phone] [facility] MS (chief complaint) jonit pain (chief complaint) Dietary surveillance and counselingMultiple sclerosisCHRONIC PAIN NEC 3 Gaurav Pisano. [address], [place], [place], [address] , [place]. [phone] Referring Provider: Norris Nolasco, [address], [place], [place], [address]. tel:[phone] [facility], [address], [place], [place], [address], [place] tel:[phone] [facility] No Information 3 Gaurav Pisano. [address], [place], [place], [address] , [place]. [phone] OFFICE/OUTPA TIENT VISIT, [facility], [address], [place], [place], [address], [place] tel:[phone] [facility] chronic pain (chief complaint) HLP (chief complaint) Hypothyroi dism (chief complaint) toe pain (chief complaint) Dietary surveillance and counselingMultiple sclerosisGout, unspecifiedOther and unspecified hyperlipidemia 3 Gaurav Pisano. [address], [place], [place], [address] , [place]. tel:[phone] OFFICE/OUTPA TIENT VISIT, [facility], [address], [place], [place], [address], [place] tel:[phone] [facility] MS (chief complaint) HTN (chief complaint) depression (chief complaint) hypothyroi dism (chief complaint) Dietary surveillance and counselingMultiple sclerosisHypertensi on, UnspecifiedHypothyr oidismCHRONIC PAIN NEC 3 Gaurav Pisano. [address], [place], [place], [address] , [place]. tel: [phone] Family History Family Member Type Diagnosis Age At Onset Mother Problem (finding) hypothyrodism Father Problem (finding) Cancer, colon Payers Payer name Insurance type Covered constitution party ID Authoriza tion(s) No Information Social History Type Description Quantity Date Captured Comments Sex Female Smoking Status No Information Chief Complaint And Reason For Visit No Information Plan Of Treatment Date Type Action Status Referral Ordered: Podiatry ordered Referral Ordered: Referral: Podiatry. ordered Referral Ordered: KNEE XRAY TWO-VIEW ordered History Of Present Illness Encounter Date Complaint History Of Prese nt Illness No Information Instructions Date Instruction Additional Infor naveen Decrease caloric intake Related to Dietary surveillance counseling Dietary counseling Related to Di etary surveillance counseling Decrease caloric intake Related to Dietary surveillance counseling Dietary counseling Related to Di etary surveillance counseling Assessments Type Assessment Date No Information
--- OUTSIDE RECORDS SUMMARY | 2024-08-09 00:35 | XMS_ITS | Encounter Summary ---
Author Organization [facility] Address [address] [place] [address] Care Team Providers Care Circular Sawyer Stone Name Role Phone Jerardo Palmer MD Primary Care Provider [phone] Encounter Details Date Type Department Care Team (Late st Contact Info) Description 01/28/2003 Outpatient Historical Division of Neurology [address] [address] Vikki Morgan MD [address] [facility] [address] [place] [address] Social History Tobacco Use Types Packs/Day Years Used Date Smoking Tobacco: Never Assessed Comments Unknown Sex and Gender Information Value Date Recorded Sex Assigned at Not on file Legal Sex Female 3:06 AM TELEPHONE MESSENGER Gender Identity Not on file Sexual Orientation [...] documented as of this encounter Care Teams Circular Sawyer Stone Relationship Specialty Start Date End Date Jerardo Palmer MD [address] [place] [address] PCP - General Internal Medicine 02/05/14 documented as of this encounter
--- OUTSIDE RECORDS SUMMARY | 2024-08-09 00:35 | XMS_ITS | Encounter Summary ---
Author Organization [facility] Address [address] [place] [address] Care Team Providers Care Electrical Appliance Mechanic Name Role Phone Jerardo Palmer MD Primary Care Provider Encounter Details Date Type Department Care Team (Late st Contact Info) Description 08/06/2001 Outpatient Historical Division of Neurology [address] [address] Vikki Morgan MD [address] [facility] [address] [place] [address] Social History Tobacco Use Types Packs/Day Years Used Date Smoking Tobacco: Never Assessed Comments Unknown Sex and Gender Information Value Date Recorded Sex Assigned at Not on file Legal Sex Female 3:06 AM TECHNICAL HEALTHCARE CONSULTANT Gender Identity Not on file Sexual Orientation [...] documented as of this encounter Care Teams Electrical Appliance Mechanic Relationship Specialty Start Date End Date Jerardo Palmer MD [address] [place] [address] PCP - General Internal Medicine 02/05/14 documented as of this encounter
--- OUTSIDE RECORDS SUMMARY | 2024-08-09 00:35 | XMS_ITS | Encounter Summary ---
Author Organization [facility] Address [address] [place] [address] Care Team Providers Care Motor Scooter Mechanic Name Role Phone Jerardo Palmer MD Primary Care Provider [phone] Encounter Details Date Type Department Care Team (Latest Contact Info) Description 05/27/2006 Outpatient Historical [facility] Morgan, Vikki Castillo MD [address] [facility] [address] [place] [address] Urinary Frequency (Primary Dx) Social History Tobacco Use Types Packs/Day Years Used Date Smoking Tobacco: Never Assessed Comments Unknown Sex and Gender Information Value Date Recorded Sex Assigned at Not on file Legal Sex Female 3:06 AM INDUSTRY SEGMENT SPECIALIST Gender Identity Not on file Sexual Orientation Not on file documented as of this encounter Plan of Treatment Not on file documented as of this encounter Procedures Procedure Name Priority Date/Time Associated Diagnosis Comments URINALYSIS WITH REFLEX CULTURE Routine 05/27/2006 11:00 AM INDUSTRY SEGMENT SPECIALIST URINALYSIS W/REFLEX MICROSCOPIC Routine 05/27/2006 11:00 AM INDUSTRY SEGMENT SPECIALIST documented in this encounter Results * (ABNORMAL) URINALYSIS (05/27/2006 11:00 AM INDUSTRY SEGMENT SPECIALIST) COLOR UA Pale Yellow INTERFAC E SYSTEM CLARITY UA Clear Clear INTERFACE SYSTEM SPECIFIC GRAVITY UA 1.013 1.001 - 1.035 INTERFACE SYSTEM PH UA 7.0 5.0 - 8.0 INTERFACE SYSTEM LEUKOCYTE ESTERASE UA Negative Negative INTERFACE SYSTEM NITRITE UA Positive(A) Negative INTERFA CE SYSTEM PROTEIN UA Negative Negative INTERFACE SYSTEM GLUCOSE UA Negative Negative INTERFACE SYSTEM KETONES UA Negative Negative INTERFACE SYSTEM UROBILINOGEN UA <1 <=1 mg/dL INTE RFACE SYSTEM BILIRUBIN UA Negative Negative INTERFA CE SYSTEM BLOOD UA Negative Negative INTERFACE SYSTEM WBC UA 1 0 - 5 /HPF INTERFACE SYSTEM BACTERIA UA 1+(A) None Seen /HPF INTERFACE SYSTEM EPITHELIAL CELLS, URINE 2-5 /HPF INTERFACE SYSTEM 05/27/2006 11:0 0 AM INDUSTRY SEGMENT SPECIALIST Vikki Morgan MD URINE ORDERABLES Edited Performing Organization Address [facility] Phone Number INTERFACE SYSTEM Refer to clinic/hospital department * URINALYSIS WITH REFLEX CULTURE (05/27/2006 11:00 AM INDUSTRY SEGMENT SPECIALIST) URINE CULTURE ORDER Culture ordered INTERFACE SYSTEM Comment: Criteria for a reflex culture include one or more of the following: Abn ormal nitrite, leukocyte esterase, WBCs or RBCs. Lack of qualifying criteria does not exclude the possiblity of a urinary tract infection. Dilute urine, drug interference, etc. may decrease the sensitivity of the criteria analytes. 05/27/2006 11:0 0 AM INDUSTRY SEGMENT SPECIALIST [place] Vikki Morgan MD URINE ORDERABLES Edited Performing Organization Address [facility] Phone Number INTERFACE SYSTEM Refer to clinic/hospital department documented in this encounter Visit Diagnoses Diagnosis Urinary frequency- Primary documented in this encounter Additional Health Concerns Infection Onset Date Last Indicated Resolved Time MRSA Comment:elizabeth 11/02/2012Resolved per Type and Duration of Precautions Recommended for Selected Infections and Conditions document 2023 update 11/05/2012 11/05/201212/09 10:08 AM CDT documented as of this encounter Care Teams Motor Scooter Mechanic Relationship Specialty Start Date End Date Jerardo Palmer MD [address] [place] [address] PCP - General Internal Medicine 02/05/14 documented as of this encounter
--- OUTSIDE RECORDS SUMMARY | 2024-08-09 00:35 | XMS_ITS | Encounter Summary ---
Author Organization [facility] Address [address] [place] [address] Care Team Providers Care Tool Grinder Name Role Phone Jerardo Palmer MD Primary Care Provider [phone] Encounter Details Date Type Department Care Team (Late st Contact Info) Description 12/11/2003 Outpatient Historical [place] [id number] [address] Vikki Morgan MD [address] [place] [address] Social History Tobacco Use Types Packs/Day Years Used Date Smoking Tobacco: Never Assessed Comments Unknown Sex and Gender Information Value Date Recorded Sex Assigned at Not on file Legal Sex Female 3:06 AM LOGISTICS CLERK Gender Identity Not on file Sexual Orientation [...] documented as of this encounter Care Teams Tool Grinder Relationship Specialty Start Date End Date Jerardo Palmer MD [address] [place] [address] PCP - General Internal Medicine 02/05/14 documented as of this encounter
--- OUTSIDE RECORDS SUMMARY | 2024-08-09 00:35 | XMS_ITS | Encounter Summary ---
Author Organization [facility] Address [address] [place] [address] Care Team Providers Care Salon/Spa Manager Name Role Phone Jerardo Palmer MD Primary Care Provider [phone] Encounter Details Date Type Department Care Team (Late st Contact Info) Description 04/16/2003 Outpatient Historical Division of Neurology [address] [address] Vikki Morgan MD [address] [facility] [address] [place] [address] Social History Tobacco Use Types Packs/Day Years Used Date Smoking Tobacco: Never Assessed Comments Unknown Sex and Gender Information Value Date Recorded Sex Assigned at Not on file Legal Sex Female 3:06 AM CORE MACHINE TENDER Gender Identity Not on file Sexual Orientation [...] documented as of this encounter Care Teams Salon/Spa Manager Relationship Specialty Start Date End Date Jerardo Palmer MD [address] [place] [address] PCP - General Internal Medicine 02/05/14 documented as of this encounter
--- OUTSIDE RECORDS SUMMARY | 2024-08-09 00:35 | XMS_ITS | Encounter Summary ---
Author Organization [facility] Address [address] [place] [address] Care Team Providers Care Professor Of Mechanical Engineering Name Role Phone Jerardo Palemr MD Primary Care Provider [phone] Encounter Details Date Type Department Care Team (Late st Contact Info) Description 01/25/2007 Outpatient Historical [place] [id number] [address] Vikki Morgan MD [address] [place] [address] Social History Tobacco Use Types Packs/Day Years Used Date Smoking Tobacco: Never Assessed Comments Unknown Sex and Gender Information Value Date Recorded Sex Assigned at Not on file Legal Sex Female 3:06 AM BEAUTY PARLOR CLEANER Gender Identity Not on file Sexual Orientation [...] documented as of this encounter Care Teams Professor Of Mechanical Engineering Relationship Specialty Start Date End Date Jerardo Palmer MD [address] [place] [address] PCP - General Internal Medicine 02/05/14 documented as of this encounter
--- OUTSIDE RECORDS SUMMARY | 2024-08-09 00:35 | XMS_ITS | Encounter Summary ---
Author Organization [facility] Address [address] [place] [address] Care Team Providers Care Pattern Checker Name Role Phone Jerardo Palmer MD Primary Care Provider [phone] Encounter Details Date Type Department Care Team (Late st Contact Info) Description 02/12/2002 Outpatient Historical [facility] [address] [place] [address] Mireya Vega MD [address] [facility] [address] [place] [address] Social History Tobacco Use Types Packs/Day Years Used Date Smoking Tobacco: Never Assessed Comments Unknown Sex and Gender Information Value Date Recorded Sex Assigned at Not on file Legal Sex Female 3:06 AM REHEAT FURNACE OPERATOR Gender Identity Not on file Sexual Orientation [...] documented as of this encounter Care Teams Pattern Checker Relationship Specialty Start Date End Date Jerardo Palmer MD [address] [place] [address] PCP - General Internal Medicine 02/05/14 documented as of this encounter
--- OUTSIDE RECORDS SUMMARY | 2024-08-09 00:35 | XMS_ITS | Encounter Summary ---
Author Organization [facility] Address [address] [place] [address] Care Team Providers Care Chef German Name Role Phone Jerardo Palmer MD Primary Care Provider [phone] Encounter Details Date Type Department Care Team (Late st Contact Info) Description 05/27/2006 Outpatient Historical [place] [id number] [address] Vikki Morgan MD [address] [place] [address] Social History Tobacco Use Types Packs/Day Years Used Date Smoking Tobacco: Never Assessed Comments Unknown Sex and Gender Information Value Date Recorded Sex Assigned at Not on file Legal Sex Female 3:06 AM FAMILY LAW MEDIATOR Gender Identity Not on file Sexual Orientation [...] documented as of this encounter Care Teams Chef German Relationship Specialty Start Date End Date Jerardo Palmer MD [address] [place] [address] PCP - General Internal Medicine 02/05/14 documented as of this encounter
--- OUTSIDE RECORDS SUMMARY | 2024-08-09 00:35 | XMS_ITS | Encounter Summary ---
Author Organization [facility] Address [address] [place] [address] Care Team Providers Care Plant Custodian Name Role Phone Jerardo Palmer MD Primary Care Provider [phone] Encounter Details Date Type Department Care Team (Late st Contact Info) Description 03/13/2006 Outpatient Historical [place] [id number] [facility] [facility] [address] Vikki Morgan MD [address] [address] [place] [address] Social History Tobacco Use Types Packs/Day Years Used Date Smoking Tobacco: Never Assessed Comments Unknown Sex and Gender Information Value Date Recorded Sex Assigned at Not on file Legal Sex Female 3:06 AM DISCHARGE COORDINATOR Gender Identity Not on file Sexual Orientation [...] documented as of this encounter Care Teams Plant Custodian Relationship Specialty Start Date End Date Jerardo Palmer MD [address] [place] [address] PCP - General Internal Medicine 02/05/14 documented as of this encounter
--- OUTSIDE RECORDS SUMMARY | 2024-08-09 00:35 | XMS_ITS | Encounter Summary ---
Author Organization [facility] Address [address] [place] [address] Care Team Providers Care U.[place]. Senator Name Role Phone Jerardo Palmer MD Primary Care Provider Encounter Details Date Type Department Care Team (Late st Contact Info) Description 08/03/2001 Outpatient Historical [facility] Vikki Morgan MD [address] [facility] [address] [place] [address] SKIN SENSATION DISTURB (Primary Dx) Social History Tobacco Use Types Packs/Day Years Used Date Smoking Tobacco: Never Assessed Comments Unknown Sex and Gender Information Value Date Recorded Sex Assigned at Not on file Legal Sex Female 3:06 AM DATA QUALITY CONSULTANT Gender Identity Not on file Sexual Orientation Not on file documented as of this encounter Plan of Treatment Not on file documented as of this encounter Visit Diagnoses Diagnosis Disturbance of skin sensation- Primary documented in this encounter Additional Health Concerns Infection Onset Date Last Indicated Resolved Time MRSA Comment:elizabeth 11/02/2012Resolved per Type and Duration of Precautions Recommended for Selected Infections and Conditions document 2023 update 11/05/2012 11/05/201212/09 10:08 AM CDT documented as of this encounter Care Teams U.[place]. Senator Relationship Specialty Start Date End Date Jerardo Palmer MD [address] [place] [address] PCP - General Internal Medicine 02/05/14 documented as of this encounter
--- OUTSIDE RECORDS SUMMARY | 2024-08-09 00:36 | XMS_ITS | Encounter Summary ---
Author Organization [facility] Address [address] [place] [address] Care Team Providers Care Manager Therapy Name Role Phone Jerardo Palmer MD Primary Care Provider [phone] Encounter Details Date Type Department Care Team (Late st Contact Info) Description 03/13/2004 Outpatient Historical HIS MRI DEPT Vikki Morgan MD [address] [facility] [address] [place] [address] MULTIPLE SCLEROSIS (CMS/HCC) (Primary Dx) Social History Tobacco Use Types Packs/Day Years Used Date Smoking Tobacco: Never Assessed Comments Unknown Sex and Gender Information Value Date Recorded Sex Assigned at Not on file Legal Sex Female 3:06 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
--- OUTSIDE RECORDS SUMMARY | 2024-08-09 00:36 | XMS_ITS | Data Portability ---
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 neoplasm of breast 151309243 Z12.31 UTD Body mass index 40+ - severely obese 755163089 Z68.41 Nutrition and exercise discussed. [id number] MD Valerie Noelhalto (CONTROL PANEL OPERATOR) [address] [place] [address] 06/12/2019 13:32:02 06/13/2019 08:35:04 Gynecologic examination 40533936 Z01.411 Normal female exam x morbid obesity. Last pap done 11/13/14 was negative with negative hr-HPV. Therefore, Pap due. Pap done. Screening for malignant neoplasm of breast 488435639 Z12.31 Last mammogram 07/14/17. Mammogram ordered. Health Concerns Section Related Observation LastModified by Organization Detai ls LastModified Time None Recorded Concern Status LastModified by Organization Details LastModified Time None Recorded Advance Directives Directive None Recorded Payers Encounter Date Sequence Insurance Name Policy Number Policy Blake Covered Member ID Blake Member ID Guarantor Name 02/01/2017 1 [place] Mireya Willisin [id number] Mireya Cruz Eduard 02/01/2017 2 [place] OR MEDICARE REPLACEMENT PRIMARY) Mireya Eduard [id number] Mireya Cruz Eduard 03/06/2017 [place] Mireya Arroyo Eduard [id number] Mireya E Eduard 03/06/2017 2 [place]ACEMENT PRIMARY) Mireya Eduard [id number] Mireya Cruz Eduard 03/20/2017 1 [place] Mireya Arroyo Eduard [id number] Mireya E Eduard 03/20/2017 2 [place] OR [place]IC[place] REPLACEMENT PRIMARY) Mireya Eduard [id number] Mireya Cruz Eduard 03/13/2018 1 [place] Mireya Willisin [id number] Mireya E Eduard 03/13/2018 2 [place] OR [place]IC[place] REPLACEMENT PRIMARY) Mireya Eduard [id number] Mireya Cruz Eduard 06/12/2019 1 [place] Mireya Willisin [id number] Mireya E Eduard 06/12/2019 2 [place] OR MEDICARE REPLACEMENT PRIMARY) Mireya Eduard [id number] Mireya Cruz Eduard Notes Date Note Type Note Provider Name and Address Organization Details Recorded Time 02/01/2017 text/html Pt. presents wit h c/o retained tampon. She knows she put one in but could not get it out. She denies pain, discharge, fever, chills. Zonia harris, [place] - [facility] 02/02/2017 09:50:01 03/06/2017 text/html Annual GYNReport ed bypatient.Menstrua l cycle:Normal menses Urinary symptoms:No hematuria; No incontinence Vulva:No genital lesion Vagina:Normal vaginal discharge Breast:No breast pain; No breast lump; No nipple discharge Current Contraception:Cond oms Sexual complaints:No sexual complaints; No pain during intercourse; Normal libido Menopausal Symptoms:No menopausal symptoms; Normal vaginal lubrication Psychological symptoms:No depression; No anxiety; No PMDD Preventive measures:Encourage self breast examination; Encourage regular exercise; Encourage no tobacco use; Encourage regular mammograms starting age 40 Zonia harrisSYLVIA SIRaleigh 03/07/2017 09:14:44 03/20/2017 text/html Pt. presents for results of pap and STI testing. She has no complaints. Zonia harrisSYLVIA 03/20/2017 10:12:36 03/13/2018 text/html Annual GYNReport ed bypatient.Menstrua l cycle:Normal menses Urinary symptoms:No hematuria; No incontinence Vulva:No genital lesion Vagina:Normal vaginal discharge Breast:No breast pain; No breast lump; No nipple discharge Current Contraception:Not sexually active Sexual complaints:No sexual complaints; No pain during intercourse; Normal libido Menopausal Symptoms:No menopausal symptoms; Normal vaginal lubrication Psychological symptoms:No depression; No anxiety; No PMDD Preventive measures:Encourage self breast examination; Encourage regular exercise; Encourage no tobacco use; Encourage regular mammograms starting age 40; Mammogram performed within the past year; Up to date on colonoscopy screening Zonia harrisSYLVIA SIRaleigh 03/13/2018 12:44:11 06/12/2019 text/html Annual GYNReport ed bypatient.Menstrua l cycle:Normal menses Urinary symptoms:No hematuria; No incontinence Vulva:No genital lesion Vagina:Normal vaginal discharge Breast:No breast pain; No breast lump; No nipple discharge Current Contraception:Not sexually active Sexual complaints:No sexual complaints; No pain during intercourse; Normal libido Menopausal Symptoms:No menopausal symptoms; Normal vaginal lubrication Psychological symptoms:No depression; No anxiety; No PMDD Preventive measures:Encourage self breast examination; Encourage regular exercise; Encourage no tobacco use; Encourage regular mammograms starting age 40; Needs to schedule mammogram Zonia Dominguez SYLVIA harris SIRaleigh 06/12/2019 15:06:00 OBGyn Episode No OBEpisode recorded.
--- OUTSIDE RECORDS SUMMARY | 2024-08-09 00:36 | XMS_ITS | Encounter Summary ---
Author Organization [facility] Address [address] [place] [address] Care Team Providers Care Tax Collection Coordinator Name Role Phone Jerardo Palmer MD Primary Care Provider [phone] Encounter Details Date Type Department Care Team (Late st Contact Info) Description 01/26/2007 Outpatient Historical [place] 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
--- OUTSIDE RECORDS SUMMARY | 2024-08-09 00:36 | XMS_ITS | Encounter Summary ---
Author Organization [facility] Address 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 Gender Identity Not on file Sexual Orientation Not on file documented as of this encounter Plan of Treatment Not on file documented as of this encounter Procedures Procedure Name Priority Date/Time Associated Diagnosis Comments MRI BRAIN W WO CONTRAST Timed Study 09/02/2008 11:17 AM CDT documented in this encounter Results * MRI BRAIN W WO CONTRAST (09/02/2008 11:17 AM CDT) Anatomical Region Laterality Modality Head Other 09/02/2008 11:1 7 AM CDT Narrative 09/03/2008 10:51 AM CDT [facility] [address] [place], [place] [address] Admit Date: 09/02/2008 HÉCTOR GU Sex: F Admit Prov: VIKKI CRUZ Date: 1975 Primary Care Prov: VIKKI CRUZ CMRN: [id number] [id number] [facility] Ordering Prov: N/A Accession Number: [id number] Interpretation MR IMAGING OF BRAIN WITH AND WITHOUT IV CONTRAST 09/02/08 Patient: A.E.H. [id number] #[id number]. Patient was scanned according to the [place] study protocol. Examination of the images shows the protocol was followed. There is no non-MS related brain pathology evident. . Dictated by: MOY ASTORGA 09/02/2008 11:35 Electronically signed by: MOY ASTORGA 09/03/2008 10:49 Transcribed: 09/02/2008 15:12 AMK Procedure Note Moy Astorga MD - 09/03/[address] [address] Admit Date: 09/02/2008 HÉCTOR GU Sex: F Admit Prov: VIKKI CRUZ Date: 1975 Primary Care Prov: VIKKI CRUZ CMRN: [id number] [facility] [id number] IM[facility]ING SERVICES Ordering Prov: N/A Interpretation MR IMAGING OF BRAIN WITH AND WITHOUT IV CONTRAST 09/02/08 Patient: A.E.H. [id number] #1. Patient was scanned according to the [place] study protocol.Examination of the images shows the protocol was followed. There is no non-MSrelated brain pathology evident. . Dictated by: MOY ASTORGA 09/02/2008 11:35 Electronically signed by: MOY ASTORGA 09/03/2008 10:49 Transcribed: 09/02/2008 15:12 AMK Vikki Cruz MD MR ORDERABLES Final Result documented in this encounter Visit Diagnoses Not on filedocumented in this encounter Additional Health Concerns Infection Onset Date Last Indicated Resolved Time MRSA Comment:elizabeth 11/02/2012Resolved per Type and Duration of Precautions Recommended for Selected Infections and Conditions document 2023 update 11/05/2012 11/05/201212/09 10:08 AM CDT documented as of this encounter Care Teams Door Builder Relationship Specialty Start Date End Date Jerardo Palmer MD [address] [facility] [address] [place] [address] PCP - General Internal Medicine 02/05/14 documented as of this encounter
--- OUTSIDE RECORDS SUMMARY | 2024-08-09 00:36 | XMS_ITS | Continuity of Care Document ---
Author Organization [facility] Address [address] [place] [address] [address] [place] [address] Phone Care Team Providers Care Sweep Molder Name Role Phone Anaid SALAS MD, Mundo Unavailable Unavailab le Procedures Procedure Date OFFICE/OUTPATIENT VISIT, EST VISUAL FIELD EXAMINATION(S) Advance Directives Directive Yes / No Effective Date File Name No Information Encounters Encounter Description Practice Location Reason(s) For Visit Diagnoses Date Provider Providers Copied on Encounter OFFICE/OUTPAT IENT VISIT, EST [facility], [address] [place] [address] [address], [place], [place], [id number], [place] tel:[phone] [facility] Office No Information 0 Anaid Flower. [address], [address], [place], [place], [id number] , [place]. tel: [phone] Family History Family Member Type Diagnosis Age At Onset No Information Payers Payer name Insurance type Covered constitution party ID Authoriza tijayda(s) DR CECILLE CRUZ STUDY PATIENT CI [id number] Social History Type Description Quantity Date Captured Comments Sex Female Smoking Status No Information Chief Complaint And Reason For Visit No Information Reason For Referral Reason For Referral No Information History Of Present Illness Encounter Date Complaint History Of Prese nt Illness No Information Functional Status Date Functional Assessmen t No Information Instructions Date Instruction Additional Infor mation No Information Assessments Type Assessment Date No Information Patient Care Teams Name Effective Dates (start - stop) Status Members No Information
--- OUTSIDE RECORDS SUMMARY | 2024-08-09 00:36 | XMS_ITS | Encounter Summary ---
Author Organization [facility] Address [address] [place] [address] Care Team Providers Care Conveyor System Operator Name Role Phone Jerardo Palmer MD Primary Care Provider [phone] Encounter Details Date Type Department Care Team (Late st Contact Info) Description 01/11/2006 Outpatient Historical [place] 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
--- OUTSIDE RECORDS SUMMARY | 2024-08-09 00:36 | XMS_ITS | Clinical Summary ---
Author Organization [facility] Address [address] [place] [address] Care Team Providers Care Job Coaching Name Role Phone Giancarlo Barcenas MD Primary Care Provider [phone] Allergies Active Allergy Reactions Criticality Noted Date Comments Adhesive Tape-Silicones Other (See comments) Medium Reaction: Blisters, Nitrofurantoin Monohyd/M-Cryst Other (See comments) Medium 01/17/2024 Patient said that it's bad for her and she cannot take it Medications loratadine-pse udoephedrine (CLARITIN-D 12 HOUR) 5-120 mg tablet extended release 12 hr take 1 tablet by oral route every 12 hours 0 0 10/29/19 14 Active naproxen (ALEVE) 220 mg tablet take 1 tablet by oral route every 12 hours as needed 0 0 10/29/19 14 Active cholecalcifero l (cholecalcifer ol) 1,000 unit tablet [The details of the medication are not available because there are pending changes by a home health clinician.] 0 0 10/29/19 14 Active Additional Information Patient taking differently: 2,000 Units oral Daily, Patient takes 3,000 daily, Reported on 03/27/2024 natalizumab (TYSABRI) 300 mg/15 mL injection infuse 15 milliliter by intravenous route every 4 weeks diluted in 100 mL of 0.9 % NaCl over 0 vial 0 10/29/19 14 Active multivitamin capsuleIndicat ions:Vitamin Deficiency Prevention Take 1 capsule by mouth daily Active polyethylene glycol (MIRALAX) 17 gram packetIndicati ons:constipati on Take 1 packet (17 g total) by mouth daily as needed (constipation) Active cephalexin (KEFLEX) 250 mg capsule Take 1 capsule (250 mg total) by mouth daily 09/17/[address] (CYMBALTA) 60 mg capsule Take 1 Capsule (60 mg) by mouth 2 times daily. 180 capsule 1 06/02/19 24 Active Additional Information Patient taking differently: 60 mg oral Daily, Patient take 1 x a day, Reported on 03/27/2024 LORazepam (ATIVAN) 0.5 mg tabletIndicati ons:Multiple sclerosis (HCC) Take 1-2 tablets (0.5-1 mg total) by mouth 2 (two) times a day 1-2 by mouth 30 minutes prior to MRI, may repeat after 30 mins if needed. 4 tablet 07/07/19 24 Active venlafaxine XR (EFFEXOR-XR) 75 mg 24 hr capsule Take 1 Capsule (75 mg) by mouth daily in addition to 150mg capsules. 90 capsule 3 08/31/19 24 Active venlafaxine XR (EFFEXOR-XR) 150 mg 24 hr capsule Take 1 capsule (150 mg total) by mouth daily 90 capsule 2 11/29/19 24 Active nystatin cream Apply topically as needed 07/26/19 24 Active multivit-gas examiner als/folic acid (DAILY GUMMIES ORAL) Take 750 mg by mouth daily Patient takes 1 gummy daily. Brand Cornbread: CBD Gummies Caceres flavored 750 mg Active diazePAM (VALIUM) 2 mg tabletIndicati ons:Multiple sclerosis (HCC) Take 1 tablet (2 mg total) by mouth every 6 (six) hours as needed for anxiety 60 tablet 4 06/24/19 25 Active HYDROcodone-ac etaminophen (NORCO) 5-325 mg per tabletIndicati ons:Multiple sclerosis (HCC) Take 1-2 tablets by mouth every 6 (six) hours as needed for pain 56 tablet 06/24/19 25 Active methylphenidat e ER (METADATE ER) 20 mg CR tablet Take 1 Tablet (20 mg) by mouth 3 times daily. 90 tablet 07/30/19 25 Active baclofen (LIORESAL) 20 mg tablet TAKE ONE TABLET BY MOUTH TWICE A DAY 60 tablet 08/01/19 25 Active baclofen (LIORESAL) 20 mg tablet TAKE ONE TABLET BY MOUTH TWICE A DAY 180 tablet 2 11/29/19 24 025 Discontinued methylphenidat e ER (METADATE ER) 20 mg CR tablet Take 1 Tablet (20 mg) by mouth 3 times daily. 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 Copaxone: 08/20012832-055006/2004-10/2004 2. Tysabri: 05/2004 x one dose only. 3. Rebif: 11/2004-01/2005. 01/2006-05/2013 4. Cladribine: 08/2008 x 1 course only; then severe lymphopenia 5. Tysabri 07/2013-04/2016 6. Tysabri 09/2017- Assessment & Plan (03/27/2024 10:27 AM IMPORT MANAGER): The patient is presenting for follow up of her multiple sclerosis. She has been on Tysabri since 2013 and has been tolerating it well. She has ongoing symptoms related to her multiple sclerosis. He has consisted of frequent urinary tract infections, pain, fatigue, infrequent stress incontinence. She also experiences prominent weakness in her bilateral lower extremities and uses a wheelchair and a Rollator walker for short distances. She reports that her symptoms are overall stable since her last visit. We will continue her on methylphenidate ER 20 mg 3 times daily to help with fatigue. Baclofen 20 mg twice daily and Valium 2 mg nightly to help with muscle spasms. Venlafaxine 225 mg daily and Cymbalta 60 mg daily to help with mood and potentially moderate menopausal symptoms. We will plan on continuing her on Tysabri and we will check a ROWDY virus today to ensure that she remains negative. The patient reports ongoing symptoms of hot flashes general crankiness. These are consistent with menopausal symptoms. We will provide her with some general education about menopausal symptoms and other potential options to help manage her symptoms. The patient has had her power wheelchair since June, or June, and overall it is working well. Her left joystick for the power wheelchair has become loose and so I will attempt to reach out to company [employer] to help troubleshoot. We will see the patient back in follow up in six months instructed her reach out in the meantime if any questions arise. The patient reports some ongoing crankiness related to menopausal symptoms but overall states her mood is good. Given some of the ongoing stressors in her life including her symptoms for multiple sclerosis in her father with dementia we discussed talking with a therapist for further guidance and treatment. I will provide the patient with some names of therapists in her area that she can contact if she is interested. Assessment & Plan (09/21/2017 11:43 AM CDT): Tysabri today. Reviewed risks including PML and infections JCV ab blood draw today at infusion center before infusion U/A today to rule out bladder infection Continue to follow with PCP regarding weight loss Scripts printed for her today to start in October for her Ritalin Follow up with Dr. Morgan in 4 months. Obesity, Class III, BMI 40-49.9 (morbid obesity) 10/03/2016 Encounters Date Type Department Care Team Description 07/09/2024 10:00 AM CDT Infusion [facility] [address] [place] [address] [address] [address] Multiple sclerosis (HCC) (Primary Dx) 05/27/2024 12:00 PM IMPORT MANAGER Lab [address] [place] [address] Multiple sclerosis (HCC) 05/27/2024 10:00 AM IMPORT MANAGER Infusion [facility] [address] [place] [address] [address] [address] Multiple sclerosis (HCC) (Primary Dx) 05/21/2024 Telephone [facility] [address] [place] [address] Argelia Meléndez RN 05/15/2024 Telephone [facility] [address] [place] [address] Bam Collins MD from Last 3 Months Immunizations Immunization Administration Dates Next Due Influenza, Quadrivalent, Spl it, Preservative Free, Intramuscular 02/11/2023,02/27/2020,02/14/2019 Elizabeth (J&J) SARS-CoV-2 Vaccination 08/04/2021, 06/13/2020 Surgical History Surgery Date Site/Laterality Comments GALLBLADDER SURGERY Medical History Medical History Date Comments Asthma Asthma Hypertension Hypertension Hx Other Medical Back pain Hx Other Medical Neuropathy feet Hx Other Medical High Cholestero l Hx Other Medical Osteoarthritis Depression Depression Disorder of thyroid Thyroid dise ase Hx Other Medical [place] teeth 20 04 Hx Other Medical Gall bladder Headache Neurogenic bladder Family History Medical History Relation Name Comments Cancer Other 1 Family history of Cancer, unknown; Arthritis Other 2 Family history of Arthritis; Lung disease Other 3 Family history of Lung problems; Alcohol abuse Other 4 Family history of Alcoholism; Hypertension Other 5 Family history of Hypertension; Stroke Other 6 Family history of Stroke; Heart disease Other 7 Family history of Heart problems; Other Other 8 Family history of M. S.; Diabetes Other 9 Family history of Diabetes mellitus; Relation Name Status Comments Other 1 Other 2 Other 3 Other 4 Other 5 Other 6 Other 7 Other 8 Other 9 Social History Tobacco Use Types Packs/Day Years Used Date Smoking Tobacco: Former Cigarettes 0.5 10 2 003 - 2013 Smokeless Tobacco: Never Tobacco Cessation:Counseling Given: Not Answered Comments:quit in 2012 Alcohol Use Standard Drinks/Week Comments No 0 (1 standard drink = 0.6 oz pur e alcohol) Comments Unknown Sex and Gender Information Value Date Recorded Sex Assigned at Not on file Legal Sex Female 5:11 PM IMPORT MANAGER Gender Identity Not on file Sexual Orientation Not on file Obstetrics History Last Filed Vital Signs Vital Sign Reading Time Taken Comments Blood Pressure 125/93 07/09/2024 11:12 AM CDT Pulse 96 07/09/2024 11:12 AM CDT Temperature 36.1 C (97 F) 07/09/2024 11:12 AM CDT Respiratory Rate 18 07/09/2024 11:12 AM CDT Oxygen Saturation 98% 07/09/2024 11:12 AM CDT Inhaled Oxygen Concentration - - Weight 135.9 kg (299 lb 8 oz) 03/27/2024 8:39 AM IMPORT MANAGER Height 175.3 cm (5' 9 ) 03/27/2024 8:39 AM IMPORT MANAGER Body Mass Index 44.23 03/27/2024 8:39 AM IMPORT MANAGER Plan of Treatment Health Maintenance Due Date Last Done Comments Breast Cancer Screening-Mammogram 1974 Cervical Cancer Screening 1974 Colon Cancer Screening-Colonoscopy 1974 Depression Screening 1974 Hepatitis C Screening 1974 DTaP/Tdap/Td Vaccine (1 - Tdap) 1985 Hepatitis B Screening 1992 Regular Well Visit/Exam 18-64 1992 Covid-19 Vaccine (3 - 2023-2 5 season) 2023 08/04/2021, 06/13/2020 Influenza Vaccine (Season Ended) 2024 02/11/2023, 02/27/2020, 02/14/2019 Pneumococcal vaccine <65 Aged Out No longer eligible based on patient's age to complete this topic Procedures Procedure Name Priority Date/Time Associated Diagnosis Comments EGFR Routine 05/27/2024 12:28 PM IMPORT MANAGER Multiple sclerosis (HCC) COMPREHENSIVE METABOLIC PANEL Routine 05/27/2024 12:28 PM IMPORT MANAGER Multiple sclerosis (HCC) STRATIFY JCV(TM) AB W/REFLEX Routine 05/27/2024 11:22 AM IMPORT MANAGER Multiple sclerosis (HCC) DIFFERENTIAL AUTO Routine 05/27/2024 11: 19 AM IMPORT MANAGER Multiple sclerosis (HCC) CBC WITH AUTO DIFFERENTIAL Routine 05/27/2024 11:19 AM IMPORT MANAGER Multiple sclerosis (HCC) from Last 3 Months Results * eGFR (05/27/2024 12:28 PM IMPORT MANAGER) Pathologist [facility] [place] eGFR >90 >=60 mL/min/1. 73 m2 Comment: Interpretive Data Reference Interval Normal >/= 90 mL/min/1.73m2 Mildly decreased* 60 - 89 mL/min/1.73m2 Mildly to moderately decreased 45 - 59 mL/min/1.73m2 Moderately to severely decreased 30 - 44 mL/min/1.73m2 Severely decreased 15 - 29 mL/min/1.73m2 Kidney Failure < 15 mL/min/1.73m2 *Relative to young adult level Estimated glomerular filtration rate is determined by the 2020 CKD-EPI equation recommended by the National Kidney Foundation (A Unifying Approach to GFR Estimation: Recommendations of the NKF-ASK Task Force on Reassessing the Inclusion of Race in Diagnosing Kidney Disease, JASN 2020). The CKD-EPI equation should not be used for patients with unstable renal function and has not been validated in children and those over 70. Current interpretive data was last reviewed 2021. Blood 05/27/2024 12:2 8 PM IMPORT MANAGER 05/27/2024 12:28 PM IMPORT MANAGER us Bam Collins MD LAB BLOOD ORDERABLES Final Result [facility] [address] [place] [address] * Comprehensive metabolic panel (05/27/2024 12:28 PM IMPORT MANAGER) [facility] Sodium 139 135 - 145 mmol/L Potassium, pl 3.9 3.3 - 4.9 mmol/L [facility] Chloride 102 97 - 110 mmol/L [facility] CO2 26 22 - 32 mmol/L [facility] Anion gap 11 2 - 15 mmol/L [facility] BUN 12 6 - 25 mg/dL [facility] Creatinine 0.66 0.60 - 1.10 mg/dL [facility] Glucose 101 70 - 199 mg/dL [facility] Comment: Interpretive Data Fasting glucose >/= 126 mg/dl is diagnostic for diabetes. Fasting is defined as no caloric intake for at least 8 hours. Fasting glucose between 100 mg/dl to 125 mg/dl is diagnostic of prediabetes. In a patient with classic symptoms of hyperglycemia or hyperglycemic crisis, a random glucose >/= 200 mg/dl is diagnostic for diabetes. In the absence of unequivocal hyperglycemia, results should be confirmed by repeat testing. The classification and Diagnosis of Diabetes Diabetes Care 2021; 46: S19-S40. Current interpretive data was last revised 2022. Calcium 9.5 8.5 - 10.3 mg/dL [facility] Bilirubin, total 0.2 0.1 - 1.2 mg/dL [facility] Protein, pl 7.5 6.5 - 8.5 g/dL [facility] Albumin 4.2 3.5 - 5.0 g/dL [facility] Alk phos 80 40 - 130 Units/L [facility] ALT 19 7 - 45 Units/L [facility] AST 17 10 - 45 Units/L [facility] Blood 05/27/2024 12:2 8 PM IMPORT MANAGER 05/27/2024 12:28 PM IMPORT MANAGER Bam Collins MD LAB BLOOD ORDERABLES Final Result [facility] [address] [place] [address] * Stratify JCV(TM) antibody w/ reflex (05/27/2024 11:22 AM IMPORT MANAGER) [facility] JCV Antibody NEGATIVE [facility] Comment: Index interpretive criteria: <0.20 negative 0.20-0.40 indeterminate >0.40 positive INTERPRETATION Negative: Antibodies to JCV not detected. Indeterminate: Low level reactivity detected, see Inhibition Assay result below for the final antibody result. Positive: Antibodies to ROWDY virus (JCV) detected indicating the patient has been exposed to JCV at an undetermined time. The STRATIFY JCV(R) DxSelect(TM) Antibody Test is an enzyme-linked immunosorbent assay (TOSIN) designed to detect JCV antibodies to help identify individuals who have been exposed to the virus. Samples with low level reactivity in the detection assay are retested in a confirmation (inhibition) assay to confirm presence or absence of JCV-specific antibodies. Retrospective analyses of post marketing data from various sources, including observational studies and spontaneous reports obtained worldwide, suggest that the risk of developing PML may be associated with relative levels of serum anti-JCV antibody as measured by anti-JCV antibody index.(1) (1) TYSABRI(natalizumab)US Prescribing Information Test Performed at: [employer] [place] [address] [place] [address] DAVID URENA MD,PHD,AMY JCV Index Value 0.14 [facility] Blood 05/27/2024 11:2 2 AM IMPORT MANAGER 05/27/2024 11:22 AM IMPORT MANAGER us Bam Collins MD LAB BLOOD ORDERABLES Final Result [facility] [address] Department [place] [address] [facility] * Differential, auto (05/27/2024 11:19 AM IMPORT MANAGER) Neutrophil abs 3.4 1.5 - 6.5 K/cumm Imm gran abs 0.0 0.0 - 0.1 K/cumm [facility] Lymphocyte abs 1.2 0.8 - 3.3 K/cumm [facility] Monocyte abs 0.5 0.2 - 0.8 K/cumm [facility] Eosinophil abs 0.1 0.0 - 0.5 K/cumm [facility] Basophil abs 0.0 0.0 - 0.1 K/cumm [facility] Neutrophil pct 64.8 % [facility] Comment: Interpretive Data Percent cell count reference ranges are not reported, since discordance with absolute values may lead to misinterpretation of CBC data. Current Interpretive Data was last revised on 2017. Imm gran pct 0.2 % [facility] Comment: Interpretive Data Percent cell count reference ranges are not reported, since discordance with absolute values may lead to misinterpretation of CBC data. Current Interpretive Data was last revised on 2017. Lymphocyte pct 22.5 % [facility] Comment: Interpretive Data Percent cell count reference ranges are not reported, since discordance with absolute values may lead to misinterpretation of CBC data. Current Interpretive Data was last revised on 2017. Monocyte pct 9.4 % [facility] Comment: Interpretive Data Percent cell count reference ranges are not reported, since discordance with absolute values may lead to misinterpretation of CBC data. Current Interpretive Data was last revised on 2017. Eosinophil pct 2.5 % [facility] Comment: Interpretive Data Percent cell count reference ranges are not reported, since discordance with absolute values may lead to misinterpretation of CBC data. Current Interpretive Data was last revised on 2017. Basophil pct 0.6 % [facility] Comment: Interpretive Data Percent cell count reference ranges are not reported, since discordance with absolute values may lead to misinterpretation of CBC data. Current Interpretive Data was last revised on 2017. Blood 05/27/2024 11:1 9 AM IMPORT MANAGER 05/27/2024 11:19 AM IMPORT MANAGER Bam Collins MD LAB BLOOD ORDERABLES Final Result [facility] [address] Department of Laboratories [place], [place] [id number] * (ABNORMAL) CBC with auto differential (05/27/2024 11:19 AM IMPORT MANAGER) WBC 5.3 3.8 - 9.9 K/cumm Hgb 12.7 11.9 - 15.5 g/dL [facility] Hct 39.7 35.6 - 45.5 % [facility] Plt 258 150 - 400 K/cumm [facility] MPV 10.8 9.1 - 12.[address] [facility] RBC 4.48 3.90 - 5.20 M/cumm [facility] MCV 88.6 81.3 - 96.[address] [facility] MCH 28.3 27.1 - 33.[address] [facility] MCHC 32.0(L) 32.3 - 35.7 g/dL [facility] RDW CV 16.3(H) 11.1 - 14.9 % [facility] RDW SD 52.4(H) 35.7 - 48.[address] [facility] NRBC abs 0.00 0.00 - 0.01 K/cumm [facility] Blood 05/27/2024 11:1 9 AM IMPORT MANAGER 05/27/2024 11:19 AM IMPORT MANAGER us Bam Collins MD LAB BLOOD ORDERABLES Final Result [facility] [address] [place] [address] from Last 3 Months Insurance MEDICARE IDPA IDRI [facility] MEDICARE ADVANTAGE [facility] MEDICARE ADVANTAGE Advance Directives For more information, please contact: [phone] Healthcare Agents on File Name Relationship Healthcare Agent Kareenmo jessa Kimball Apollo Chapa Father Health Care Agent Care Teams Job Coaching Relationship Specialty Start Date End Date Giancarlo Barcenas MD PCP - General Family Medicine 09/21/17
--- OUTSIDE RECORDS SUMMARY | 2024-08-09 00:36 | XMS_ITS | Encounter Summary ---
Author Organization [facility] Address [address] [place] [address] Care Team Providers Care General Worker Name Role Phone Jerardo Palmer MD Primary Care Provider [phone] Encounter Details Date Type Department Care Team (Late st Contact Info) Description 01/11/2006 Outpatient Historical [place] [id number] [address] Vikki Morgan MD [address] [place] [address] Social History Tobacco Use Types Packs/Day Years Used Date Smoking Tobacco: Never Assessed Comments Unknown Sex and Gender Information Value Date Recorded Sex Assigned at Not on file Legal Sex Female 3:06 AM DIE DRAWING CHECKER Gender Identity Not on file Sexual Orientation [...] documented as of this encounter Care Teams General Worker Relationship Specialty Start Date End Date Jerardo Palmer MD [address] [place] [address] PCP - General Internal Medicine 02/05/14 documented as of this encounter
--- OUTSIDE RECORDS SUMMARY | 2024-08-09 00:36 | XMS_ITS | Encounter Summary ---
Author Organization [facility] Address [address] [place] [address] Care Team Providers Care [employer] Guidance Counselor Name Role Phone Jerardo Palmer MD Primary Care Provider [phone] Encounter Details Date Type Department Care Team (Late st Contact Info) Description 01/13/2006 Outpatient Historical [place] [id number] [address] Vikki Morgan MD [address] [place] [address] Social History Tobacco Use Types Packs/Day Years Used Date Smoking Tobacco: Never Assessed Comments Unknown Sex and Gender Information Value Date Recorded Sex Assigned at Not on file Legal Sex Female 3:06 AM LOFTSMAN Gender Identity Not on file Sexual Orientation [...] documented as of this encounter Care Teams High School Guidance Counselor Relationship Specialty Start Date End Date Jerardo Palmer MD [address] [place] [address] PCP - General Internal Medicine 02/05/14 documented as of this encounter
--- OUTSIDE RECORDS SUMMARY | 2024-08-09 00:36 | XMS_ITS | Referral Summary ---
Author Organization [facility] Address [address] [place] [address] Care Team Providers Care Bailer Operators Supervisor Name Role Phone Giancarlo Barcenas MD Primary Care Provider [phone] Encounters Date Type Department Care Team Description 07/09/2024 10:00 AM CDT Infusion [facility] [address] [place] [phone] Multiple sclerosis (HCC) (Primary Dx) 05/27/2024 12:00 PM CRIME SCENE EXAMINER Lab [address] [place] [address] Multiple sclerosis (HCC) 05/27/2024 10:00 AM CRIME SCENE EXAMINER Infusion [facility] [address] [place] [address] [address] [address] Multiple sclerosis (HCC) (Primary Dx) 05/21/2024 Telephone [facility] [address] [place] [phone] Argelia Meléndez RN 05/15/2024 Telephone [facility] [address] [place] [address] [place] [phone] Bam Collins MD from Last 3 Months Allergies Active Allergy Reactions Criticality Noted Date [...] Apply topically as needed 07/26/19 24 Active 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 Copaxone: 08/[id number]/2004-10/2004 2. Tysabri: 05/2004 x one dose only. 3. Rebif: 11/2004-01/2005. 01/2006-05/2013 4. Cladribine: 08/2008 x 1 course only; then severe lymphopenia 5. Tysabri 07/2013-04/2016 6. Tysabri 09/2017- Assessment & Plan (03/27/2024 10:27 AM CRIME SCENE EXAMINER): The patient is presenting for follow up [...] I will attempt to reach out to [employer] mobility to help troubleshoot. We will see [...] Assessment & Plan (09/21/2017 11:43 AM CDT): Audelia today. Reviewed risks including PML and infections JCV ab blood draw today at infusion center before infusion U/A today to rule out bladder infection Continue to follow with PCP regarding weight loss Scripts printed for her today to start in October for her Ritalin Follow up with Dr. Morgan in 4 months. Obesity, Class III, BMI 40-49.9 (morbid obesity) 10/03/2016 Immunizations Immunization Administration Dates Next Due Influenza, Quadrivalent, Spl it, Preservative Free, Intramuscular 02/11/2023,02/27/2020,02/14/2019 Elizabeth (J&J) SARS-CoV-2 Vaccination 08/04/2021, 06/13/2020 Social History Tobacco Use Types Packs/Day Years Used Date Smoking Tobacco: Former Cigarettes 0.5 10 2 003 - 2012 Smokeless Tobacco: Never Tobacco Cessation:Counseling Given: Not Answered Comments:quit in 2012 Alcohol Use Standard Drinks/Week Comments No 0 (1 standard drink = 0.6 oz pur e alcohol) Comments Unknown Sex and Gender Information Value Date Recorded Sex Assigned at Not on file Legal Sex Female 5:11 PM CRIME SCENE EXAMINER Gender Identity Not on file Sexual Orientation Not on file Last Filed Vital Signs Vital Sign Reading Time Taken Comments Blood Pressure 125/93 07/09/2024 11:12 AM CDT Pulse 96 07/09/2024 11:12 AM CDT Temperature 36.1 C (97 F) 07/09/2024 11:12 AM CDT Respiratory Rate 18 07/09/2024 11:12 AM CDT Oxygen Saturation 98% 07/09/2024 11:12 AM CDT Inhaled Oxygen Concentration - - Weight 135.9 kg (299 lb 8 oz) 03/27/2024 8:39 AM CRIME SCENE EXAMINER Height 175.3 cm (5' 9 ) 03/27/2024 8:39 AM CRIME SCENE EXAMINER Body Mass Index 44.23 03/27/2024 8:39 AM CRIME SCENE EXAMINER Plan of Treatment Not on file Procedures Procedure Name Priority Date/Time Associated Diagnosis Comments EGFR Routine 05/27/2024 12:28 PM CRIME SCENE EXAMINER Multiple sclerosis (HCC) COMPREHENSIVE METABOLIC PANEL Routine 05/27/2024 12:28 PM CRIME SCENE EXAMINER Multiple sclerosis (HCC) STRATIFY JCV(TM) AB W/REFLEX Routine 05/27/2024 11:22 AM CRIME SCENE EXAMINER Multiple sclerosis (HCC) DIFFERENTIAL AUTO Routine 05/27/2024 11: 19 AM CRIME SCENE EXAMINER Multiple sclerosis (HCC) CBC WITH AUTO DIFFERENTIAL Routine 05/27/2024 11:19 AM CRIME SCENE EXAMINER Multiple sclerosis (HCC) from Last 3 Months Results * eGFR (05/27/2024 12:28 PM CRIME SCENE EXAMINER) eGFR >90 >=60 mL/min/1. 73 m2 Comment: [...] of Race in Diagnosing Kidney Disease, JASN 202). The CKD-EPI equation should not be used for patients with unstable renal function and has not been validated in children and those over 70. Current interpretive data was last reviewed 2021. Blood 05/27/2024 12:2 8 PM CRIME SCENE EXAMINER 05/27/2024 12:28 PM CRIME SCENE EXAMINER us Bam Collins MD LAB BLOOD ORDERABLES Final Result [facility] [address] Department of Laboratories [place], [place] [id number] * Comprehensive metabolic panel (05/27/2024 12:28 PM CRIME SCENE EXAMINER) Sodium 139 135 - 145 mmol/L Potassium, pl 3.9 3.3 - 4.9 mmol/L [facility] Chloride 102 97 - 110 mmol/L [facility] CO2 26 22 - 32 mmol/L [facility] Anion gap 11 2 - 15 mmol/L [facility] BUN 12 6 - 25 mg/dL [facility] Creatinine 0.66 0.60 - 1.10 mg/dL [facility] Glucose 101 70 - 199 mg/dL [facility] Comment: Interpretive Data Fasting glucose >/= 126 [...] 2022. Calcium 9.5 8.5 - 10.3 mg/dL [facility] Bilirubin, total 0.2 0.1 - 1.2 mg/dL [facility] Protein, pl 7.5 6.5 - 8.5 g/dL [facility] Albumin 4.2 3.5 - 5.0 g/dL [facility] Alk phos 80 40 - 130 Units/L [facility] ALT 19 7 - 45 Units/L [facility] AST 17 10 - 45 Units/L [facility] Blood 05/27/2024 12:2 8 PM CRIME SCENE EXAMINER 05/27/2024 12:28 PM CRIME SCENE EXAMINER us Bam Collins MD LAB BLOOD ORDERABLES Final Result [facility] [address] Department [place] [address] * Stratify JCV(TM) antibody w/ reflex (05/27/2024 11:22 AM CRIME SCENE EXAMINER) [facility] JCV Antibody NEGATIVE [facility] Comment: Index interpretive [...] (1) TYSABRI(natalizumab)US Prescribing Information Test Performed at: [employer] [address] [place] [address] DAVID URENA MD,PHD,AMY JCV Index Value 0.14 [facility] Blood 05/27/2024 11:2 2 AM CRIME SCENE EXAMINER 05/27/2024 11:22 AM CRIME SCENE EXAMINER us Bam Collins MD LAB BLOOD ORDERABLES Final Result [facility] [address] Department [place] [address] [facility] * Differential, auto (05/27/2024 11:19 AM CRIME SCENE EXAMINER) Neutrophil abs 3.4 1.5 - 6.5 K/cumm Imm gran abs 0.0 0.0 - 0.1 K/cumm [facility] Lymphocyte abs 1.2 0.8 - 3.3 K/cumm [facility] Monocyte abs 0.5 0.2 - 0.8 K/cumm [facility] Eosinophil abs 0.1 0.0 - 0.5 K/cumm [facility] Basophil abs 0.0 0.0 - 0.1 K/cumm [facility] Neutrophil pct 64.8 % [facility] Comment: Interpretive Data Percent cell count reference ranges are not reported, since discordance with absolute values may lead to misinterpretation of CBC data. Current Interpretive Data was last revised on 2017. Imm gran pct 0.2 % [facility] Comment: Interpretive Data Percent cell count reference ranges are not reported, since discordance with absolute values may lead to misinterpretation of CBC data. Current Interpretive Data was last revised on 2017. Lymphocyte pct 22.5 % [facility] Comment: Interpretive Data Percent cell count reference ranges are not reported, since discordance with absolute values may lead to misinterpretation of CBC data. Current Interpretive Data was last revised on 2017. Monocyte pct 9.4 % [facility] Comment: Interpretive Data Percent cell count reference ranges are not reported, since discordance with absolute values may lead to misinterpretation of CBC data. Current Interpretive Data was last revised on 2017. Eosinophil pct 2.5 % [facility] Comment: Interpretive Data Percent cell count reference ranges are not reported, since discordance with absolute values may lead to misinterpretation of CBC data. Current Interpretive Data was last revised on 2017. Basophil pct 0.6 % [facility] Comment: Interpretive Data Percent cell count reference ranges are not reported, since discordance with absolute values may lead to misinterpretation of CBC data. Current Interpretive Data was last revised on 2017. Blood 05/27/2024 11:1 9 AM CRIME SCENE EXAMINER 05/27/2024 11:19 AM CRIME SCENE EXAMINER us Bam Collins MD LAB BLOOD ORDERABLES Final Result [facility] [address] Department [place] [address] * (ABNORMAL) CBC with auto differential (05/27/2024 11:19 AM CRIME SCENE EXAMINER) WBC 5.3 3.8 - 9.9 K/cumm Hgb 12.7 11.9 - 15.5 g/dL [facility] Hct 39.7 35.6 - 45.5 % [facility] Plt 258 150 - 400 K/cumm [facility] MPV 10.8 9.1 - 12.3 fL [facility] RBC 4.48 3.90 - 5.20 M/cumm [facility] MCV 88.6 81.3 - 96.4 fL [facility] MCH 28.3 27.1 - 33.3 pg [facility] MCHC 32.0(L) 32.3 - 35.7 g/dL [facility] RDW CV 16.3(H) 11.1 - 14.9 % [facility] RDW SD 52.4(H) 35.7 - 48.1 fL [facility] NRBC abs 0.00 0.00 - 0.01 K/cumm [facility] Blood 05/27/2024 11:1 9 AM CRIME SCENE EXAMINER 05/27/2024 11:19 AM CRIME SCENE EXAMINER Bam Collins MD LAB BLOOD ORDERABLES Final Result [facility] [address] Department of Laboratories [place], [place] [id number] from Last 3 Months Insurance MEDICARE [employer] [facility] MEDICARE ADVANTAGE [facility] MEDICARE ADVANTAGE Advance Directives For more information, please contact: [phone] Healthcare Agents on File Name Relationship Healthcare Agent Relationshi p Communication Apollo Chapa Father Health Care Agent Care Teams Bailer Operators Supervisor Relationship Specialty Start Date End Date Giancarlo Barcenas MD PCP - General Family Medicine 09/21/17
--- OUTSIDE RECORDS SUMMARY | 2024-08-09 00:36 | XMS_ITS | Encounter Summary ---
Author Organization [facility] Address [address] [place] [address] Care Team Providers Care Insight Leader Name Role Phone Jerardo Palmer MD Primary Care Provider [phone] Encounter Details Date Type Department Care Team (Late st Contact Info) Description 05/26/2004 Outpatient Historical [place] 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
--- OUTSIDE RECORDS SUMMARY | 2024-08-09 00:36 | XMS_ITS | Encounter Summary ---
Author Organization [facility] Address [address] [place] [address] Care Team Providers Care Mounter Clarinets Name Role Phone Jerardo Palmer MD Primary Care Provider [phone] Encounter Details Date Type Department Care Team (Latest Contact Info) Description 10/02/2007 Outpatient Historical [facility] Vikki Marshall MD [address] [facility] [address] [place] [address] Multiple Sclerosis (CMS/[facility]ER[facility]) Social History Tobacco Use Types Packs/Day Years Used Date Smoking Tobacco: Never Assessed Comments Unknown Sex and Gender Information Value Date Recorded Sex Assigned at Not on file 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 Gender Identity Not on file Sexual Orientation Not on file documented as of this encounter Plan of Treatment Not on file documented as of this encounter Procedures Procedure Name Priority Date/Time Associated Diagnosis Comments CBC WITH DIFFERENTIAL Routine 10/02/2007 10:20 AM CDT COMPREHENSIVE METABOLIC PANEL Routine 10/02/2007 10:20 AM CDT documented in this encounter Results * COMPREHENSIVE METABOLIC PANEL (10/02/2007 10:20 AM CDT) TOTAL PROTEIN 7.4 6.3 - 8.6 g/dL [facility] POTASSIUM 4.2 3.5 - 4.9 mmol/L [facility] GLUCOSE 82 65 - 99 mg/dL [facility] AST 20 12 - 32 U/L [facility] BUN 15 6 - 20 mg/dL [facility] CALCIUM 9.5 8.4 - 10.2 mg/dL [facility] ALBUMIN 4.2 3.4 - 4.8 g/dL [facility] CHLORIDE 101 96 - 108 mmol/L [facility] CREATININE 0.89 0.51 - 0.95 mg/dL [facility] ALT 25 0 - 31 U/L [facility] SODIUM 138 135 - 145 mmol/L [facility] ALKALINE PHOSPHATASE 69 35 - 104 U/L [facility] BILIRUBIN TOTAL 0.2 0.2 - 1.0 mg/dL [facility] CO2 29 22 - 30 mmol/L [facility] GFR, >60 >=60 mL/min/1.7 sq meter [facility] GFR >60 >=60 mL/min/1.7 sq meter [facility] Comment: Modification of Diet in Renal Disease (MDRD) study formula. Estimated GFR rate interpretative information for both Americans and non- Americans is available on the [facility] Intranet at: [email or web address] [email or web address] Select: Lab Policies and Procedures Select: Reference Ranges - GFR Blood specimen (specimen) 10/02/2007 10:20 AM CDT 10/02/2007 10:36 AM CDT us Vikki Morgan MD CHEMISTRY ORDERABLES Edited [facility] CLIA# [id number] [address] [place] [address] * CBC WITH DIFFERENTIAL (10/02/2007 10:20 AM CDT) HEMOGLOBIN 13.1 11.8 - 14.8 g/dL [facility] RDW 13.0 11.5 - 14.5 % [facility] WBC 7.1 4.0 - 9.8 K/uL [facility] MCH 29.8 27.2 - 32.6 pg [facility] MPV 10.5 9.3 - 12.4 fL [facility] HEMATOCRIT 40.0 35.5 - 44.0 % [facility] RDW-STDEV 43.3 37.1 - 48.7 fL [facility] RBC 4.39 3.90 - 4.90 M/uL [facility] MCHC 32.8 31.5 - 35.5 % [facility] MCV 91.1 82.0 - 99.0 fL [facility] PLATELETS 314 140 - 350 K/uL [facility] EOSINOPHIL ABSOLUTE 0.13 0.00 - 0.70 K/uL [facility] LYMPHOCYTES 24 16 - 45 % [facility] LYMPHOCYTE ABSOLUTE 1.66 0.70 - 4.50 K/uL [facility] BASOPHILS 0 0 - 2 % [facility] BASOPHILS ABSOLUTE 0.02 0.00 - 0.20 K/uL [facility] MONOCYTES 8 3 - 13 % [facility] MONOCYTE ABSOLUTE 0.55 0.10 - 1.30 K/uL [facility] NEUTROPHILS 67 45 - 70 % [facility] NEUTROPHIL ABSOLUTE 4.69 1.90 - 7.00 K/uL [facility] EOSINOPHILS 2 0 - 7 % [facility] Blood specimen (specimen) 10/02/2007 10:20 AM CDT 10/02/2007 10:36 AM CDT us Vikki Morgan MD HEMATOLOGY ORDERABLES Edited INTERFACE SYSTEM Refer to clinic/hospital department [facility] CLIA# [id number] [address] [place] [address] documented in this encounter Visit Diagnoses Diagnosis Multiple sclerosis (CMS/HCC) Multiple sclerosis documented in this encounter Additional Health Concerns Infection Onset Date Last Indicated Resolved Time MRSA Comment:elizabeth 11/02/2012Resolved per Type and Duration of Precautions Recommended for Selected Infections and Conditions document 2023 update 11/05/2012 11/05/201212/09 10:08 AM CDT documented as of this encounter Care Teams Mounter Clarinets Relationship Specialty Start Date End Date Jerardo Palmer MD [address] [place] [address] PCP - General Internal Medicine 02/05/14 documented as of this encounter
--- OUTSIDE RECORDS SUMMARY | 2024-08-09 00:36 | XMS_ITS | Encounter Summary ---
Author Organization [facility] Address [address] [place] [address] Care Team Providers Care Compressor Operator Portable Name Role Phone Jerardo Palmer MD Primary Care Provider [phone] Encounter Details Date Type Department Care Team (Late st Contact Info) Description 01/13/2006 Outpatient Historical [place] 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
--- OUTSIDE RECORDS SUMMARY | 2024-08-09 00:36 | XMS_ITS | Encounter Summary ---
Author Organization [facility] Address [address] [place] [address] Care Team Providers Care Irrigator Name Role Phone Jerardo Palmer MD Primary Care Provider [phone] Encounter Details Date Type Department Care Team (Late st Contact Info) Description 12/20/2012 Chart Note [facility] [address] [place] [address] Jackie Mckeon, Physical Therapist [address] [facility] [address] [place] [address] Social History Tobacco Use Types Packs/Day Years Used Date Smoking Tobacco: Former Cigarettes 0.9 5 Smokeless Tobacco: Never Alcohol Use Standard Drinks/Week Comments No 0 (1 standard drink = 0.6 oz pur e alcohol) Comments No Sex and Gender Information Value Date Recorded Sex Assigned at Not on file 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 Physical Therapy Daily Documentation Patient: Mireya Chapa Date: 12/20/2012 Date of : 1975 Physician: No ref. provider found Diagnosis: MS Called Mireya today as a follow up to prior conversation regarding homecare PT and bracing. Mireya reports things are going very well, no falls since she has been home from the hospital and she will be getting her new bilateral AFOs in a week or so. Mireya did not have any questions or concerns at this time. She is unsure what her needs will be after discharge from homecare PT but overall feels she is doing very well. Further therapy after home care may not be indicated for Mireya at this time but Mireya will discuss with her homecare PT and I will call Mireya in a month if I haven't heard from her to follow upand to discuss any concerns at that time. Jackie Miles, MPT, [facility] [employer] [address] [place] [address] [employer] [place], [place] [address] documented in this encounter Plan of Treatment Not on file documented as of this encounter Visit Diagnoses Not on filedocumented in this encounter Additional Health Concerns Infection Onset Date Last Indicated Resolved Time MRSA Comment:elizabeth 11/02/2012Resolved per Type and Duration of Precautions Recommended for Selected Infections and Conditions document 2023 update 11/05/2012 11/05/201212/09 10:08 AM CDT documented as of this encounter Care Teams Irrigator Relationship Specialty Start Date End Date Jerardo Palmer MD [address] [place] [address] PCP - General Internal Medicine 02/05/14 documented as of this encounter
--- OUTSIDE RECORDS SUMMARY | 2024-08-09 00:36 | XMS_ITS | Encounter Summary ---
Author Organization [facility] Address [address] [place] [address] Care Team Providers Care Plate Furnace Operator Name Role Phone Jerardo Palmer MD Primary Care Provider Encounter Details Date Type Department Care Team (Late st Contact Info) Description 01/11/2006 Outpatient Historical [place] 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
--- OUTSIDE RECORDS SUMMARY | 2024-08-09 00:36 | XMS_ITS | Encounter Summary ---
Author Organization [facility] Address [address] [place] [address] Care Team Providers Care Talent Acquisition Relationship Manager Name Role Phone Jerardo Palmer MD Primary Care Provider [phone] Encounter Details Date Type Department Care Team (Late st Contact Info) Description 01/11/2006 Outpatient Historical [place] 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
--- OUTSIDE RECORDS SUMMARY | 2024-08-09 00:36 | XMS_ITS | Encounter Summary ---
Author Organization [facility] Address [address] [place] [address] Care Team Providers Care Fence Installer Foreman Name Role Phone Jerardo Palmer MD Primary Care Provider [phone] Encounter Details Date Type Department Care Team (Late st Contact Info) Description 01/12/2006 Outpatient Historical [place] 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
--- OUTSIDE RECORDS SUMMARY | 2024-08-09 00:36 | XMS_ITS | Encounter Summary ---
Author Organization [facility] Address 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
--- OUTSIDE RECORDS SUMMARY | 2024-08-09 00:36 | XMS_ITS | Encounter Summary ---
Author Organization [facility] Address [address] [place] [address] Care Team Providers Care Geospatial Program Management Officer Name Role Phone Jerardo Palmer MD Primary Care Provider [phone] Encounter Details Date Type Department Care Team (Latest Contact Info) Description 08/08/2008 Outpatient Historical HIS [facility] SHELLY CREWS Multiple Sclerosis ([facility]) Social History Tobacco Use Types Packs/Day Years Used Date Smoking Tobacco: Never Assessed Comments Unknown Sex and Gender Information Value Date Recorded Sex Assigned at Not on file 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
--- OUTSIDE RECORDS SUMMARY | 2024-08-09 00:36 | XMS_ITS | Encounter Summary ---
Author Organization [facility] Address [address] [place] [address] Care Team Providers Care Multi Township Assessor Name Role Phone Jerardo Palmer MD Primary Care Provider [phone] Encounter Details Date Type Department Care Team (Late st Contact Info) Description 01/10/2006 Outpatient Historical Division of Neurology [address] [address] Vikki Morgan MD [address] [facility] [address] [place] [address] Social History Tobacco Use Types Packs/Day Years Used Date Smoking Tobacco: Never Assessed Comments Unknown Sex and Gender Information Value Date Recorded Sex Assigned at Not on file 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
--- OUTSIDE RECORDS SUMMARY | 2024-08-09 00:36 | XMS_ITS | Encounter Summary ---
Author Organization [facility] Address 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
--- OUTSIDE RECORDS SUMMARY | 2024-08-09 00:36 | XMS_ITS | Encounter Summary ---
Author Organization [facility] Address 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
--- OUTSIDE RECORDS SUMMARY | 2024-08-09 00:36 | XMS_ITS | Encounter Summary ---
Author Organization [facility] Address [address] [place] [address] Care Team Providers Care Air Bag Buffer Name Role Phone Jerardo Palmre MD Primary Care Provider [phone] Encounter Details Date Type Department Care Team (Late st Contact Info) Description 01/12/2006 Outpatient Historical [place] 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
--- OUTSIDE RECORDS SUMMARY | 2024-08-09 00:36 | XMS_ITS | Clinical Summary ---
Author Organization [facility] Address [address] [place] [address] Phone Care Team Providers Care International Bank Manager Name Role Phone Jerardo Palmer MD Primary Care Provider [phone] Allergies Active Allergy Reactions Criticality Noted Date Comments Adhesive Tape-Silicones Rash Low 12/18/2015 Nitrofurantoin Monohyd/M-Cryst Other (See Comments) Medium 01/17/2024 Patient said that it's bad for her and she cannot take it Medications Walker [facility] Pt needs 4 wheel walker w/ seat and handbrakes, has tried and likes Drive walker in PT. Any questions regarding this patient's walker, contact Jackie/Sylvain at [facility] @[phone]. Patient's next PT appt is 07/25/12 @1100, please deliver to [facility] prior to that appt. 1 Each 1 3 Active celecoxib (CELEBREX) 200 mg capsule Take 200 mg by mouth daily . Active naproxen sodium (ALEVE) 220 mg Tablet Take 220 mg by mouth every 4 hours as needed for Pain, Moderate. Active DULoxetine (CYMBALTA) 60 mg Capsule, Delayed Release(E.C.)In dications:Multi ple sclerosis (CMS/HCC) TAKE ONE CAPSULE BY MOUTH DAILY. 30 Capsule 8 7 Active polyethylene glycol 3350 (MIRALAX) 17 gram/dose Powder Take 17 Grams by mouth daily Dissolve in 8 ounces of fluid and drink entire liquid . Active ERGOCALCIFEROL, VITAMIN D2, (VITAMIN D ORAL) Take by mouth. Activ e natalizumab (TYSABRI) 300 mg/15 mL SolutionIndicat ions:Multiple sclerosis (CMS/HCC),Encou nter for long-term (current) use of medications Inject 300 mg by intraveous injection every 28 days. 15 mL 11 7 Active baclofen (LIORESAL) 20 mg tabletIndicatio ns:Multiple sclerosis (CMS/HCC),MS (multiple sclerosis) (CMS/HCC),Spast ic paraparesis,Med ication monitoring encounter TAKE 1 TABLET BY MOUTH TWO TIMES DAILY. 90 Tablet 11 7 Active diazePAM (VALIUM) 2 mg tabletIndicatio ns:Multiple sclerosis (CMS/HCC) TAKE 1 TO 2 TABLET BY MOUTH EVERY 6 HOURS NEEDED FOR SPASMS.. 90 Tablet 2 7 Active Miscellaneous Medical SupplyIndicatio ns:Multiple sclerosis (CMS/HCC) Power chair with a reclining back support. 1 Each 8 Active methylphenidate HCl (RITALIN SR) 20 mg Extended Release tabletIndicatio ns:Multiple sclerosis (CMS/HCC),Medic ation monitoring encounter Take 1 Tablet (20 mg) by mouth 2 times daily. Max Daily Amount: 40 mg 180 Tablet 8 Active methylphenidate HCl (RITALIN) 10 mg tabletIndicatio ns:Multiple sclerosis (CMS/HCC),Medic ation monitoring encounter Take 1 Tablet (10 mg) by mouth 3 times daily. Max Daily Amount: 30 mg 270 Tablet 8 Active HYDROcodone-roverto taminophen (NORCO) 5-325 mg tabletIndicatio ns:Multiple sclerosis (CMS/HCC),Medic ation monitoring encounter Take 1 Tablet by mouth every 8 hours as needed for Pain. Max Daily Amount: 3 Tablets 30 Tablet 8 Active venlafaxine (EFFEXOR XR) 150 mg Extended Release 24 hour capsule Take 1 Capsule (150 mg) by mouth daily. 90 Capsule 2 8 Active venlafaxine (EFFEXOR XR) 75 mg Extended Release 24 hour capsule Take 1 Capsule (75 mg) by mouth daily Patient must schedule follow up before more refills are given. 90 Capsule 9 Active cephALEXin (KEFLEX) 250 mg capsule Take 1 Capsule (250 mg) by mouth daily at bedtime. Start after finishing nitrofurantoin . 90 Capsule 1 09/09/2021 9:28 AM CDT 2 Active triamcinolone acetonide (KENALOG) 0.1 % Cream Apply to affected area twice daily 80 Gram 3 01/22/2022 9:43 AM CDT 2 Active amoxicillin-cla vulanate (AUGMENTIN) 500-125 mg tablet Take 1 Tablet by mouth every 12 hours. 10 Tablet 1 11/16/2021 7:36 PM CDT 2 Active HYDROcodone-roverto taminophen (NORCO) 5-325 mg tablet Take 1-2 tablets by mouth every 6 hours as needed for pain. 56 Tablet 01/27/2022 10:44 AM CDT 2 Active diazePAM (VALIUM) 2 mg tablet Take 1 Tablet (2 mg) by mouth 4 times daily as needed for anxiety. 60 Tablet 1 07/20/2022 11:00 AM CDT 3 Active HYDROcodone-roverto taminophen (NORCO) 5-325 mg tablet Take 1 Tablet by mouth every 6 hours as needed for pain. 20 Tablet 07/20/2022 11:00 AM CDT 3 Active DULoxetine (CYMBALTA) 60 mg Capsule, Delayed Release(E.C.) Take 1 Capsule (60 mg) by mouth 2 times daily. 60 Capsule 5 09/10/2022 10:03 AM CDT 3 Active ciprofloxacin HCl (CIPRO) 500 mg tablet Take 1 Tablet (500 mg) by mouth 2 times daily. 10 Tablet 09/19/2022 7:33 PM CDT 3 Active nystatin (NYSTOP) 100,000 unit/gram powder Apply thin layer of powder to affected skin fold twice daily after showering and drying area. 60 Gram 10/03/2022 7:28 PM CDT 3 Active methylphenidate HCl (RITALIN) 10 mg tablet Take 1 Tablet (10 mg) by mouth 3 times daily. 90 Tablet 10/05/2022 9:52 AM CDT 3 Active trimethoprim (TRIMPEX) 100 mg tablet Take 1 Tablet (100 mg) by mouth 2 times daily. 14 Tablet 12/01/2022 12:36 PM CDT 3 Active ciprofloxacin HCl (CIPRO) 500 mg tablet Take 1 Tablet (500 mg) by mouth 2 times daily. 14 Tablet 12/25/2022 3:08 PM CDT 3 Active amoxicillin-cla vulanate (AUGMENTIN) 500-125 mg tablet Take 1 tablet orally every 12 hours 10 Tablet 03/13/2023 11:13 AM FOOD SCIENCE TECHNICIAN 3 Active ciprofloxacin HCl (CIPRO) 500 mg tablet TAKE 1 TABLET BY MOUTH TWICE DAILY FOR 5 DAYS 10 Tablet 05/23/2023 11:17 AM [facility] 4 Active DULoxetine (CYMBALTA) 60 mg Capsule, Delayed Release(E.C.) Take 1 Capsule (60 mg) by mouth 2 times daily. 180 Capsule 1 04/02/2024 9:10 AM [facility] 4 Active HYDROcodone-roverto taminophen (NORCO) 5-325 mg tablet Take 1 tablet by mouth every 6 (six) hours as needed for pain 20 Tablet 06/06/2023 4:27 PM FOOD SCIENCE TECHNICIAN 4 Active LORazepam (ATIVAN) 0.5 mg tablet Take 1-2 tablets by mouth 30 minutes prior to MRI, may repeat after 30 mins if needed. 4 Tablet 07/07/2023 6:40 PM CDT 4 Active nystatin (MYCOSTATIN) 100,000 unit/gram Cream Apply three times a day to affected area 30 Gram 5 01/19/2024 10:38 AM T 4 Active venlafaxine (EFFEXOR XR) 75 mg Extended Release 24 hour capsule Take 1 Capsule (75 mg) by mouth daily in addition to 150mg capsules. 90 Capsule 3 06/01/2024 10:58 AM [facility] 4 Active diazePAM (VALIUM) 2 mg tablet Take 1 Tablet (2 mg) by mouth 4 times daily as needed for anxiety. 60 Tablet 4 12/26/2023 11:33 AM T 4 Active nystatin (MYCOSTATIN) 100,000 unit/gram Cream Apply three times a day to affected area 30 Gram 2 06/01/2024 11:00 AM FOOD SCIENCE TECHNICIAN 4 Active venlafaxine (EFFEXOR XR) 150 mg Extended Release 24 hour capsule Take 1 capsule (150 mg total) by mouth daily 90 Capsule 2 06/01/2024 10:58 AM FOOD SCIENCE TECHNICIAN 4 Active HYDROcodone-roverto taminophen (NORCO) 5-325 mg tablet Take 1-2 tablets by mouth every 6 (six) hours as needed for pain 56 Tablet 12/26/2023 11:33 AM CDT 4 Active chlorhexidine gluconate 0.12 % Mouthwash RINSE MOUTH TWICE DAILY WITH 5 ML STARTING 24 HOURS AFTER SURGERY. DO NOT USE LONGER THAN 2 WEEKS. 473 mL 02/07/2024 11:40 AM CDT 4 Active diazePAM (VALIUM) 2 mg tablet Take 1 tablet (2 mg total) by mouth every 6 (six) hours as needed for anxiety 60 Tablet 4 06/24/2024 12:11 PM CDT 5 Active HYDROcodone-roverto taminophen (NORCO) 5-325 mg tablet Take 1-2 tablets by mouth every 6 (six) hours as needed for pain 56 Tablet 06/24/2024 12:11 PM CDT 5 Active methylphenidate HCl (METADATE ER) 20 mg Extended Release tablet Take 1 Tablet (20 mg) by mouth 3 times daily. 90 Tablet 07/30/2024 11:08 AM CDT 5 Active baclofen (LIORESAL) 20 mg tablet TAKE ONE TABLET BY MOUTH TWICE A DAY 60 Tablet 08/01/2024 9:58 AM CDT 5 Active baclofen (LIORESAL) 20 mg tablet TAKE ONE TABLET BY MOUTH TWICE A DAY 180 Tablet 2 05/07/2024 11:44 AM FOOD SCIENCE TECHNICIAN 4 08/01/19 25 Discontin ued(Reord er) methylphenidate HCl (METADATE ER) 20 mg Extended Release tablet Take 1 Tablet (20 mg) by mouth 3 times daily. 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 Copaxone: 08/20019466-508406/2004-10/2004 2. Tysabri: 05/2004 x one dose only. 3. Rebif: 11/2004-01/2005. 01/2006-05/2013 4. Cladribine: 08/2008 x 1 course only 5. Tysabri 07/2013 ([facility]/oncology Dr Duobis)-04/201603/11/11 25ft timed walk 7.8 sec then 11.4 sec Encounters Date Type Department Care Team Description 07/23/2024 External Device Data ST[facility] ABSTRACTION Provider, Abstract 06/26/2024 External Device Data [facility] ABSTRACTION Provider, Abstract 06/15/2024 External Device Data [facility] ABSTRACTION Provider, Abstract 06/14/2024 External Device Data [facility] ABSTRACTION Provider, Abstract 06/11/2024 External Device Data [facility] ABSTRACTION Provider, Abstract 05/28/2024 External Device Data [facility] ABSTRACTION Provider, Abstract from Last 3 Months Immunizations Immunization Administration Dates Next Due INFLUENZA VACCINE QUADRIVALENT 6 MOS UP PF IM Family History Medical History Relation Name Comments Colon Cancer Father High Cholesterol Father Cancer Maternal Grandmother Diabetes Maternal Grandmother Osteoporosis Maternal Grandmother Other Mother MS Cancer Paternal Grandmother Stroke Paternal Grandmother Thyroid Disease Paternal Grandmother Relation Name Status Comments Father Maternal Grandmother Mother Paternal Grandmother Social History Tobacco Use Types Packs/Day Years Used Date Smoking Tobacco: Former Cigarettes 0.9 5 Smokeless Tobacco: Never Alcohol Use Standard Drinks/Week Comments No 0 (1 standard drink = 0.6 oz pur e alcohol) Comments No Sex and Gender Information Value Date Recorded Sex Assigned at Not on file 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 Gender Identity Not on file Sexual Orientation Not on file Occupation Industry Job Start Date Job End Date Not on file Not on file Not on file Not on file Last Filed Vital Signs Vital Sign Reading Time Taken Comments Blood Pressure 124/78 05/16/2017 1:17 PM FOOD SCIENCE TECHNICIAN Pulse 80 05/16/2017 1:17 PM FOOD SCIENCE TECHNICIAN Temperature 36.8 C (98.2 F) 04/15/2016 2:15 PM FOOD SCIENCE TECHNICIAN Respiratory Rate 20 04/15/2016 2:15 PM FOOD SCIENCE TECHNICIAN Oxygen Saturation 98% 05/16/2017 1:1 7 PM FOOD SCIENCE TECHNICIAN Inhaled Oxygen Concentration - - Weight 127 kg (280 lb) 05/16/2017 1:17 PM FOOD SCIENCE TECHNICIAN pt in wheelchair Height 175.3 cm (5' 9 ) 05/16/2017 1:17 PM FOOD SCIENCE TECHNICIAN Body Mass Index 41.35 05/16/2017 1:17 PM FOOD SCIENCE TECHNICIAN Plan of Treatment Health Maintenance Due Date Last Done Comments DTAP/TDAP/TD VACCINES (1 - Tdap) 1993 HEPATITIS B VACCINES (1 of 3 - 19+ 3-dose series) 1993 HPV/Cotest (21-29) 11/27/1995 HPV/Cotest (30-65) 2004 Pre-Diabetes and Diabetes Screening 11/12/201511/11 CERVICAL CANCER SCREENING 11/13/2017 PAP SMEAR 11/13/2017 11/13/2014 BREAST CANCER SCREENING 07/14/2018 07/15/19 18, 07/14/2017, 11/19/2014 COLORECTAL SCREENING 11/27/2019 Colorectal Cancer Screening 11/27/2019 FIT-DNA Q 3 years 11/27/2019 FIT/FOBT Q 1 year 11/27/2019 Flex Sig/CT Colonography Q 5 years 11/27/2019 INFLUENZA VACCINE (#1) 2023 3, 02/27/2020, 02/14/2019 COVID-19 Vaccine ( season) 2023, 06/13/2020 Procedures Procedure Name Priority Date/Time Associated Diagnosis Comments HEMOGLOBIN A1C Routine 11/11/2012 5:20 AM CDT Debility from Last 3 Months or Most Recently Relevant to Health Maintenance Results * HEMOGLOBIN A1C (11/11/2012 5:20 AM CDT) HEMOGLOBIN A1C 5.2 4.1 - 6.1 % of Hgb [facility] Jaunt [facility] EST. AVG GLUCOSE, A1C 103 mg/dL [facility] Comment: The reported estimated average glucose (eAG) based on the HbA1c determination is calculated using the ADAG study equation. Further interpretative information is available in the Laboratory Services Policy Manual on the [facility] Intranet at: [email or web address]/ Blood specimen (specimen) 11/11/2012 5:20 AM CDT 11/11/2012 6:48 AM CDT us Andres Luis MD CHEMISTRY ORDERABLES Final Re sult [facility] CLIA# [id number] [address] [place] [address] from Last 3 Months or Most Recently Relevant to Health Maintenance Insurance [facility] [place] [address] RX [employer] RX Member Subscriber Plan / Payer (Ef fective 2020-Present) Name:HÉCTOR CHAPA Relation to Subscriber:Self Name:Héctor Chapa Payer ID:Not on file Group ID:[id number] Type:RX Medicare Part D Address: [place], [place] RX DEVI PLANS (INTERNAL) [facility] [employer] [place] [address] [place] [address] Advance Directives For more information, please contact: [phone] Documents on File Type Date Recorded Patient Glass Designer Expl anation Advance Directive POA 11/15/2012 6:52 PM [employer] Directive POA * Full Code (Latest Code Status on File) Date Activated Date Inactivated Comments 11/02/2012 7:36 AM 11/09/2012 7:11 PM * Full Code Date Activated Date Inactivated Comments 11/02/2012 1:44 AM 11/02/2012 7:36 AM * Full Code Date Activated Date Inactivated Comments 11/01/2012 9:27 PM 11/02/2012 1:44 AM * Full Code Date Activated Date Inactivated Comments 11/01/2012 8:02 PM 11/01/2012 9:27 PM * Full Code Date Activated Date Inactivated Comments 10/31/2012 10:09 PM 11/01/2012 8:02 PM Care Teams International Bank Manager Relationship Specialty Start Date End Date Jerardo Palmer MD [address] [place] [phone] PCP - General Internal Medicine 02/05/14
--- OUTSIDE RECORDS SUMMARY | 2024-08-09 00:36 | XMS_ITS | Encounter Summary ---
Author Organization [facility] Address 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 Gender Identity Not on file Sexual Orientation Not on file documented as of this encounter Plan of Treatment Not on file documented as of this encounter Procedures Procedure Name Priority Date/Time Associated Diagnosis Comments MRI BRAIN W WO CONTRAST Routine 10/09/2007 2:58 PM CDT documented in this encounter Results * MRI BRAIN W WO CONTRAST (10/09/2007 2:58 PM CDT) Anatomical Region Laterality Modality Head Other 10/09/2007 2:58 PM CDT Narrative 10/09/2007 5:16 PM CDT [facility] [address] [place], [place] [address] Admit Date: 10/09/2007 HÉCTOR GU Sex: F Admit Prov: VIKKI CRUZ Date: 1975 Primary Care Prov: VIKKI CRUZ CMRN: [id number] Room: [facility] SSN: [id number] IMAGING SERVICES Ordering Prov: N/A Accession Number: [id number] Interpretation MR imaging brain without and with IV contrast 10/09/2007 History: New MS activity Scan protocol: Patient was scanned with standard MS brain protocol. Comparison is made to prior study of 03/13/2004. Findings: There is extensive parenchymal loss for age. The sylvian fissures are widened. There are extensive periventricular plaques present bilaterally. These are at times confluent. No abnormal enhancement of plaques is identified. Plaques are present in the subcortical white matter, pre- and postcentral gyri on the left and pre- and postcentral gyri on the right. Bilateral peritrigonal plaque formation is noted. There has been decrease in a plaque that was present in the posterior limb of the right internal capsule. Plaques are seen along the lateral margins of the temporal horns. Plaque is present earlier in the left half of the jacky and this appears to have faded somewhat. There is a small discrete plaque in the ventral aspect of the jacky on the right. There appears to be some increase in the amount of plaque present in the middle cerebellar peduncles. No abnormal enhancement is seen. Impression: Some increase in plaque in middle cerebellar peduncles and ventral aspect of jacky on the right. No evidence of contrast enhancement or diffusion positivity however. . Dictated by: MOY RICHEY 10/09/2007 16:55 Electronically signed by: MOY RICHEY 10/09/2007 17:15 Transcribed: 10/09/2007 17:00 AMK Procedure Note Provider, Historical - 10/09/[address] [address] Admit Date: 10/09/2007 HÉCTOR GU Sex: F Admit Prov: VIKKI CRUZ Date: 1975 Primary Care Prov: VIKKI CRUZ CMRN: [id number] Room: [facility] SSN: [id number] IMAGING SERVICES Ordering Prov: N/A Interpretation MR imaging brain without and with IV contrast 10/09/2007 History: New MS activity Scan protocol: Patient was scanned with standard MS brain protocol. Comparison ismade to prior study of 03/13/2004. Findings: There is extensive parenchymal loss for age. The sylvian fissuresare widened. There are extensive periventricular plaques presentbilaterally. These are at times confluent. No abnormal enhancement of plaques is identified. Plaques are present in the subcortical white matter, pre-and postcentral gyri on the left and pre- and postcentral gyri on theright. Bilateral peritrigonal plaque formation is noted. There has beendecrease in a plaque that was present in the posterior limb of the rightinternal capsule. Plaques are seen along the lateral margins of the temporalhorns. Plaque is present earlier in the left half of the jacky and thisappears to have faded somewhat. There is a small discrete plaque in the ventralaspect of the jacky on the right. There appears to be some increase in theamount of plaque present in the middle cerebellar peduncles. No abnormal enhancement is seen. Impression: Some increase in plaque in middle cerebellar peduncles and ventralaspect of jacky on the right. No evidence of contrast enhancement or diffusion positivityhowever. . Dictated by: MOY RICHEY 10/09/2007 16:55 Electronically signed by: MOY RICHEY 10/09/2007 17:15 Transcribed: 10/09/2007 17:00 AMK Vikki Cruz MD MR ORDERABLES Final Result documented in this encounter Visit Diagnoses Not on filedocumented in this encounter Additional Health Concerns Infection Onset Date Last Indicated Resolved Time MRSA Comment:elizabeth 11/02/2012Resolved per Type and Duration of Precautions Recommended for Selected Infections and Conditions document 2023 update 11/05/2012 11/05/201212/09 10:08 AM CDT documented as of this encounter Care Teams Dust Mill Operator Relationship Specialty Start Date End Date Jerardo Palmer MD [address] [place] [address] PCP - General Internal Medicine 02/05/14 documented as of this encounter
--- OUTSIDE RECORDS SUMMARY | 2024-08-09 00:36 | XMS_ITS | Encounter Summary ---
Author Organization [facility] Address [address] [place] [address] Care Team Providers Care Rope Cutter Name Role Phone Jerardo Palmer MD Primary Care Provider [phone] Encounter Details Date Type Department Care Team (Latest Contact Info) Description 11/13/2008 Outpatient Historical HIS [facility] SHELLY CREWS Multiple Sclerosis (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
--- OUTSIDE RECORDS SUMMARY | 2024-08-09 00:36 | XMS_ITS | Encounter Summary ---
Author Organization [facility] Address [address] [place] [address] Care Team Providers Care Airplane Charter Clerk Name Role Phone Jerardo Palmer MD Primary Care Provider [phone] Encounter Details Date Type Department Care Team (Late st Contact Info) Description 03/16/2004 Outpatient Historical Division of Neurology [address] [address] Vikki Morgan MD [address] [facility] [address] [place] [address] Social History Tobacco Use Types Packs/Day Years Used Date Smoking Tobacco: Never Assessed Comments Unknown Sex and Gender Information Value Date Recorded Sex Assigned at Not on file Legal Sex Female 3:06 AM HOME HEALTH REGISTERED NURSE Gender Identity Not on file Sexual Orientation [...] documented as of this encounter Care Teams Airplane Charter Clerk Relationship Specialty Start Date End Date Jerardo Palmer MD [address] [place] [phone] PCP - General Internal Medicine 02/05/14 documented as of this encounter
--- OUTSIDE RECORDS SUMMARY | 2024-08-09 00:36 | XMS_ITS | Encounter Summary ---
Author Organization [facility] Address [address] [place] [address] Care Team Providers Care Hospital Pharmacist Name Role Phone Jerardo Palmer MD Primary Care Provider [phone] Encounter Details Date Type Department Care Team (Late st Contact Info) Description 01/12/2006 Outpatient Historical [place] 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
--- OUTSIDE RECORDS SUMMARY | 2024-08-09 00:36 | XMS_ITS | Encounter Summary ---
Author Organization [facility] Address 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
--- OUTSIDE RECORDS SUMMARY | 2024-08-09 00:36 | XMS_ITS | Encounter Summary ---
Author Organization [facility] Address [address] [place] [address] Care Team Providers Care Swimmer Name Role Phone Jerardo Palmer MD Primary Care Provider [phone] Encounter Details Date Type Department Care Team (Late st Contact Info) Description 02/28/2007 Outpatient Historical [place] 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
--- OUTSIDE RECORDS SUMMARY | 2024-08-09 00:36 | XMS_ITS | Encounter Summary ---
Author Organization [facility] Address [address] [place] [address] Care Team Providers Care Line Cook Name Role Phone Jerardo Palmer MD Primary Care Provider Encounter Details Date Type Department Care Team (Latest Contact Info) Description 09/23/2008 Outpatient Historical HIS [facility] Vikki Marshall MD [address] [facility] [address] [place] [address] Multiple Sclerosis (CMS/HCC) Social History Tobacco Use Types Packs/Day Years Used Date Smoking Tobacco: Never Assessed Comments Unknown Sex and Gender Information Value Date Recorded Sex Assigned at Not on file Legal Sex Female 3:06 AM SOLE SEAMER Gender Identity Not on file Sexual Orientation [...] documented as of this encounter Care Teams Line Cook Relationship Specialty Start Date End Date Jerardo Palmer MD [address] [place] [phone] PCP - General Internal Medicine 02/05/14 documented as of this encounter
--- OUTSIDE RECORDS SUMMARY | 2024-08-09 00:36 | XMS_ITS | Encounter Summary ---
Author Organization [facility] Address [address] [place] [address] Care Team Providers Care Drug Safety Physician Name Role Phone Jerardo Palmer MD Primary Care Provider [phone] Encounter Details Date Type Department Care Team (Late st Contact Info) Description 01/11/2006 Outpatient Historical [place] [id number] [address] Vikki Morgan MD [address] [place] [address] Social History Tobacco Use Types Packs/Day Years Used Date Smoking Tobacco: Never Assessed Comments Unknown Sex and Gender Information Value Date Recorded Sex Assigned at Not on file Legal Sex Female 3:06 AM MICROBIOLOGY COORDINATOR Gender Identity Not on file Sexual [...] documented as of this encounter Care Teams Drug Safety Physician Relationship Specialty Start Date End Date Jerardo Palmer MD [address] [place] [address] PCP - General Internal Medicine 02/05/14 documented as of this encounter
--- OUTSIDE RECORDS SUMMARY | 2024-08-09 00:36 | XMS_ITS | Encounter Summary ---
Author Organization [facility] Address [address] [place] [address] Care Team Providers Care Gardening Supervisor Name Role Phone Jerardo Palmer MD Primary Care Provider [phone] Encounter Details Date Type Department Care Team (Late st Contact Info) Description 01/10/2006 Outpatient Historical HIS [facility] SHELLY Morgan, Vikki Castillo MD [address] [facility] [address] [place] [address] Social History Tobacco Use Types Packs/Day Years Used Date Smoking Tobacco: Never Assessed Comments Unknown Sex and Gender Information Value Date Recorded Sex Assigned at Not on file Legal Sex Female 3:06 AM TERRITORY REPRESENTATIVE Gender Identity Not on file Sexual Orientation Not on file documented as of this encounter Plan of Treatment Not on file documented as of this encounter Procedures Procedure Name Priority Date/Time Associated Diagnosis Comments URINALYSIS W/REFLEX MICROSCOPIC Routine 01/10/2006 2:47 PM CDT documented in this encounter Results * (ABNORMAL) URINALYSIS (01/10/2006 2:47 PM CDT) COLOR UA Yellow INTERFACE SYSTEM CLARITY UA Slt. Cloudy(A) Clear INTERFACE SYSTEM SPECIFIC GRAVITY UA 1.010 1.001 - 1.035 INTERFACE SYSTEM PH UA 5.5 5.0 - 8.0 INTERFACE SYSTEM LEUKOCYTE ESTERASE UA 1+(A) Negative INTERFACE SYSTEM NITRITE UA Negative Negative INTERFACE SYSTEM PROTEIN UA Negative Negative INTERFACE SYSTEM GLUCOSE UA Negative Negative INTERFACE SYSTEM KETONES UA Negative Negative INTERFACE SYSTEM UROBILINOGEN UA <1 <=1 mg/dL INTE RFACE SYSTEM BILIRUBIN UA Negative Negative INTERFA CE SYSTEM BLOOD UA Negative Negative INTERFACE SYSTEM WBC UA 2 0 - 5 /HPF INTERFACE SYSTEM RBC UA 2 0 - 4 /HPF INTERFACE SYSTEM EPITHELIAL CELLS, URINE 5-10 /HPF INTERFACE SYSTEM AMORPHOUS CRYSTAL Rare /HPF INTERFACE SYSTEM 01/10/2006 2:47 PM CDT us Vikki Morgan MD URINE ORDERABLES Final Result INTERFACE SYSTEM Refer to clinic/hospital department documented in this encounter Visit Diagnoses Not on filedocumented in this encounter Additional Health Concerns Infection Onset Date Last Indicated Resolved Time MRSA Comment:elizabeth 11/02/2012Resolved per Type and Duration of Precautions Recommended for Selected Infections and Conditions document 2023 update 11/05/2012 11/05/201212/09 10:08 AM CDT documented as of this encounter Care Teams Gardening Supervisor Relationship Specialty Start Date End Date Jerardo Palmer MD [address] [place] [address] PCP - General Internal Medicine 02/05/14 documented as of this encounter
--- OUTSIDE RECORDS SUMMARY | 2024-08-09 00:36 | XMS_ITS | Encounter Summary ---
Author Organization [facility] Address [address] [place] [address] Care Team Providers Care Purchase Request Editor Name Role Phone Jerardo Palmer MD Primary Care Provider [phone] Encounter Details Date Type Department Care Team (Late st Contact Info) Description 11/08/2004 Outpatient Historical [place] 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
--- OUTSIDE RECORDS SUMMARY | 2024-08-09 00:36 | XMS_ITS | Encounter Summary ---
Author Organization [facility] Address [address] [place] [address] Care Team Providers Care Generation Engineer Name Role Phone Jerardo Palmer MD Primary Care Provider [phone] Encounter Details Date Type Department Care Team (Late st Contact Info) Description 01/13/2006 Outpatient Historical [place] [id number] [address] Vikki Morgan MD [address] [place] [address] Social History Tobacco Use Types Packs/Day Years Used Date Smoking Tobacco: Never Assessed Comments Unknown Sex and Gender Information Value Date Recorded Sex Assigned at Not on file Legal Sex Female 3:06 AM GERM DRIER Gender Identity Not on file Sexual Orientation [...] documented as of this encounter Care Teams Generation Engineer Relationship Specialty Start Date End Date Jerardo Palmer MD [address] [place] [address] PCP - General Internal Medicine 02/05/14 documented as of this encounter
--- OUTSIDE RECORDS SUMMARY | 2024-08-09 00:36 | XMS_ITS | Encounter Summary ---
Author Organization [facility] Address [address] [place] [address] Care Team Providers Care National Guard Member Name Role Phone Jerardo Palmer MD Primary Care Provider [phone] Encounter Details Date Type Department Care Team (Late st Contact Info) Description 01/13/2006 Outpatient Historical [place] 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
--- OUTSIDE RECORDS SUMMARY | 2024-08-09 00:36 | XMS_ITS | Encounter Summary ---
Author Organization [facility] Address [address] [place] [address] Care Team Providers Care Admission Discharge Rn Name Role Phone Jerardo Palmer MD Primary Care Provider Encounter Details Date Type Department Care Team (Late st Contact Info) Description 01/11/2006 Outpatient Historical [place] [id number] [address] Vikki Morgan MD [address] [place] [address] Social History Tobacco Use Types Packs/Day Years Used Date Smoking Tobacco: Never Assessed Comments Unknown Sex and Gender Information Value Date Recorded Sex Assigned at Not on file Legal Sex Female 3:06 AM BOOKIE Gender Identity Not on file Sexual Orientation [...] documented as of this encounter Care Teams Admission Discharge Rn Relationship Specialty Start Date End Date Jerardo Palmer MD [address] [place] [address] PCP - General Internal Medicine 02/05/14 documented as of this encounter
--- OUTSIDE RECORDS SUMMARY | 2024-08-09 00:36 | XMS_ITS | Encounter Summary ---
Author Organization [facility] Address [address] [place] [address] Care Team Providers Care Mining Professionals Name Role Phone Jerardo Palmer MD Primary Care Provider [phone] Encounter Details Date Type Department Care Team (Late st Contact Info) Description 01/25/2007 Outpatient Historical [place] [id number] [address] Vikki Morgan MD [address] [place] [address] Social History Tobacco Use Types Packs/Day Years Used Date Smoking Tobacco: Never Assessed Comments Unknown Sex and Gender Information Value Date Recorded Sex Assigned at Not on file Legal Sex Female 3:06 AM CAMPUS CHAPLAIN Gender Identity Not on file Sexual Orientation [...] documented as of this encounter Care Teams Mining Professionals Relationship Specialty Start Date End Date Jerardo Palmer MD [address] [place] [address] PCP - General Internal Medicine 02/05/14 documented as of this encounter
--- OUTSIDE RECORDS SUMMARY | 2024-08-09 00:36 | XMS_ITS | Encounter Summary ---
Author Organization [facility] Address [address] [place] [address] Care Team Providers Care Animal Care Provider Name Role Phone Giancarlo Barcenas MD Primary Care Provider [phone] Encounter Details Date Type Department Care Team (Late st Contact Info) Description 07/28/2020 Telephone [facility] Radiology [address] [place] [address] Vikki Morgan MD [address] [facility] [address] [place] [address] Social History Tobacco Use Types Packs/Day Years Used Date Smoking Tobacco: Former Smokeless Tobacco: Never Comments:quit in 2012 Alcohol Use Standard Drinks/Week Comments No 0 (1 standard drink = 0.6 oz pur e alcohol) Comments Unknown Sex and Gender Information Value Date Recorded Sex Assigned at Not on file Legal Sex Female 5:11 PM PROOF PASSER Gender Identity Not on file Sexual Orientation Not on file documented as of this encounter Plan of Treatment Not on file documented as of this encounter Visit Diagnoses Not on filedocumented in this encounter Care Teams Animal Care Provider Relationship Specialty Start Date End Date Giancarlo Barcenas MD PCP - General Family Medicine 09/21/17 documented as of this encounter
--- OUTSIDE RECORDS SUMMARY | 2024-08-09 00:36 | XMS_ITS | Encounter Summary ---
Author Organization [facility] Address [address] [place] [address] Care Team Providers Care Knitter Mechanic Name Role Phone Giancarlo Barcenas MD Primary Care Provider [phone] Encounter Details Date Type Department Care Team (Late st Contact Info) Description 05/08/2024 Telephone [facility] [address] [facility] [address] [place] [address] Wilber Mendez, CARLOS Social History Tobacco Use Types Packs/Day Years Used Date Smoking Tobacco: Former Cigarettes 0.5 10 2 003 - 2012 Smokeless Tobacco: Never Comments:quit in 2012 Alcohol Use Standard Drinks/Week Comments No 0 (1 standard drink = 0.6 oz pur e alcohol) Comments Unknown Sex and Gender Information Value Date Recorded Sex Assigned at Not on file 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
--- OUTSIDE RECORDS SUMMARY | 2024-08-09 00:36 | XMS_ITS | Encounter Summary ---
Author Organization [facility] Address [address] [place] [address] Care Team Providers Care Admission Liaison Name Role Phone Jerardo Palmer MD Primary Care Provider [phone] Encounter Details Date Type Department Care Team (Latest Contact Info) Description 06/13/2007 Outpatient Historical HIS [facility] SHELLY CREWS Multiple Sclerosis ([facility]/HCC); Encounter for Long-Term (Current) Use of Other Medications Social History Tobacco Use Types Packs/Day Years Used Date Smoking Tobacco: Never Assessed Comments Unknown Sex and Gender Information Value Date Recorded Sex Assigned at Not on file Legal Sex Female 3:06 AM ASSOCIATE PROFESSOR OF ARCHAEOLOGY Gender Identity Not on file Sexual Orientation Not on file documented as of this encounter Plan of Treatment Not on file documented as of this encounter Procedures Procedure Name Priority Date/Time Associated Diagnosis Comments CBC WITH DIFFERENTIAL Routine 06/13/2007 11:43 AM ASSOCIATE PROFESSOR OF ARCHAEOLOGY COMPREHENSIVE METABOLIC PANEL Routine 06/13/2007 11:43 AM ASSOCIATE PROFESSOR OF ARCHAEOLOGY documented in this encounter Results * (ABNORMAL) COMPREHENSIVE METABOLIC PANEL (06/13/2007 11:43 AM ASSOCIATE PROFESSOR OF ARCHAEOLOGY) CALCIUM 9.0 8.4 - 10.2 mg/dL [facility] CHLORIDE 100 96 - 108 mmol/L [facility] ALBUMIN 4.0 3.4 - 4.8 g/dL [facility] CREATININE 0.67 0.51 - 0.95 mg/dL [facility] SODIUM 138 135 - 145 mmol/L [facility] ALT 24 0 - 31 U/L [facility] ALKALINE PHOSPHATASE 68 35 - 104 U/L [facility] BILIRUBIN TOTAL 0.1(L) 0.2 - 1.0 mg/dL [facility] CO2 27 22 - 30 mmol/L [facility] TOTAL PROTEIN 7.0 6.3 - 8.6 g/dL [facility] POTASSIUM 4.3 3.5 - 4.9 mmol/L [facility] GLUCOSE 95 65 - 99 mg/dL [facility] AST 15 12 - 32 U/L [facility] BUN 13 6 - 20 mg/dL [facility] GFR, >60 >=60 mL/min/1. 7 sq meter [facility] GFR >60 >=60 mL/min/1. 7 sq meter [facility] Comment: Estimated GFR rate interpretative information for both Americans and non- Americans is available on the [facility] Intranet at: [email or web address] Select: Lab Policies and Procedures Select: Reference Ranges - GFR Blood specimen (specimen) 06/13/2007 11:43 AM ASSOCIATE PROFESSOR OF ARCHAEOLOGY 06/13/2007 11:50 AM ASSOCIATE PROFESSOR OF ARCHAEOLOGY us Vikki Morgan MD CHEMISTRY ORDERABLES Edited [facility] [address] [place] [address] * CBC WITH DIFFERENTIAL (06/13/2007 11:43 AM ASSOCIATE PROFESSOR OF ARCHAEOLOGY) HEMATOCRIT 38.3 35.5 - 44.0 % [facility] RDW-STDEV 42.6 37.1 - 48.7 fL [facility] RBC 4.16 3.90 - 4.90 M/uL [facility] MCHC 32.9 31.5 - 35.5 % [facility] MCV 92.1 82.0 - 99.0 fL [facility] PLATELETS 292 140 - 350 K/uL [facility] HEMOGLOBIN 12.6 11.8 - 14.8 g/dL [facility] RDW 12.8 11.5 - 14.5 % [facility] WBC 4.9 4.0 - 9.8 K/uL [facility] MCH 30.3 27.2 - 32.6 pg [facility] MPV 10.5 9.3 - 12.4 fL [facility] BASOPHILS ABSOLUTE 0.01 0.00 - 0.20 K/uL [facility] MONOCYTES 9 3 - 13 % [facility] MONOCYTE ABSOLUTE 0.45 0.10 - 1.30 K/uL [facility] NEUTROPHILS 58 45 - 70 % [facility] NEUTROPHIL ABSOLUTE 2.84 1.90 - 7.00 K/uL [facility] EOSINOPHILS 1 0 - 7 % [facility] EOSINOPHIL ABSOLUTE 0.07 0.00 - 0.70 K/uL [facility] LYMPHOCYTES 32 16 - 45 % [facility] LYMPHOCYTE ABSOLUTE 1.57 0.70 - 4.50 K/uL [facility] BASOPHILS 0 0 - 2 % [facility] Blood specimen (specimen) 06/13/2007 11:43 AM ASSOCIATE PROFESSOR OF ARCHAEOLOGY 06/13/2007 11:50 AM ASSOCIATE PROFESSOR OF ARCHAEOLOGY us Vikki Morgan MD HEMATOLOGY ORDERABLES Edited INTERFACE SYSTEM Refer to clinic/hospital department [facility] [address] [place] [address] documented in this encounter Visit Diagnoses Diagnosis Multiple sclerosis (CMS/HCC) Multiple sclerosis Encounter for long-term (current) use of other medications documented in this encounter Additional Health Concerns Infection Onset Date Last Indicated Resolved Time MRSA Comment:elizabeth 11/02/2012Resolved per Type and Duration of Precautions Recommended for Selected Infections and Conditions document 2023 update 11/05/2012 11/05/201212/09 10:08 AM CDT documented as of this encounter Care Teams Admission Liaison Relationship Specialty Start Date End Date Jerardo Palmer MD [address] [place] [address] PCP - General Internal Medicine 02/05/14 documented as of this encounter
--- OUTSIDE RECORDS SUMMARY | 2024-08-09 00:36 | XMS_ITS | Encounter Summary ---
Author Organization [employer] Address [address] [place] [address] Care Team Providers Care Hosiery Operator Name Role Phone Jerardo Palmer MD Primary Care Provider [phone] Encounter Details Date Type Department Care Team (Late st Contact Info) Description 05/26/2004 Outpatient Historical [place] [id number] [address] Vikki Morgan MD [address] [place] [address] Social History Tobacco Use Types Packs/Day Years Used Date Smoking Tobacco: Never Assessed Comments Unknown Sex and Gender Information Value Date Recorded Sex Assigned at Not on file Legal Sex Female 3:06 AM TEAM MEMBER Gender Identity Not on file Sexual Orientation [...] documented as of this encounter Care Teams Hosiery Operator Relationship Specialty Start Date End Date Jerardo Palmer MD [address] [place] [address] PCP - General Internal Medicine 02/05/14 documented as of this encounter
--- OUTSIDE RECORDS SUMMARY | 2024-08-09 00:36 | XMS_ITS | Encounter Summary ---
Author Organization [facility] Address [address] [place] [address] Care Team Providers Care Nicker Name Role Phone Jerardo Palmer MD Primary Care Provider [phone] Encounter Details Date Type Department Care Team (Late st Contact Info) Description 01/11/2006 Outpatient Historical [place] [id number] [address] Vikki Morgan MD [address] [place] [address] Social History Tobacco Use Types Packs/Day Years Used Date Smoking Tobacco: Never Assessed Comments Unknown Sex and Gender Information Value Date Recorded Sex Assigned at Not on file Legal Sex Female 3:06 AM STOCK PLAN ADMINISTRATOR Gender Identity Not on file Sexual [...] documented as of this encounter Care Teams Nicker Relationship Specialty Start Date End Date Jerardo Palmer MD [address] [place] [address] PCP - General Internal Medicine 02/05/14 documented as of this encounter
--- OUTSIDE RECORDS SUMMARY | 2024-08-09 00:36 | XMS_ITS | Encounter Summary ---
Author Organization [facility] Address [address] [place] [address] Care Team Providers Care Game Tester Name Role Phone Jerardo Palmer MD Primary Care Provider [phone] Encounter Details Date Type Department Care Team (Latest Contact Info) Description 10/14/2008 Outpatient Historical HIS [facility] SHELLY CREWS Multiple Sclerosis ([facility]/HCC) Social History Tobacco Use Types Packs/Day Years Used Date Smoking Tobacco: Never Assessed Comments Unknown Sex and Gender Information Value Date Recorded Sex Assigned at Not on file Legal Sex Female 3:06 AM PIPE STRIPPER Gender Identity Not on file Sexual Orientation [...] documented as of this encounter Care Teams Game Tester Relationship Specialty Start Date End Date Jerardo Palmer MD [address] [place] [address] PCP - General Internal Medicine 02/05/14 documented as of this encounter
--- OUTSIDE RECORDS SUMMARY | 2024-08-09 00:36 | XMS_ITS | Encounter Summary ---
Author Organization [facility] Address [address] [place] [address] Care Team Providers Care Twisting Machine Operator Name Role Phone Jerardo Palmer MD Primary Care Provider [phone] Encounter Details Date Type Department Care Team (Late st Contact Info) Description 01/12/2006 Outpatient Historical [place] [id number] [address] Vikki Morgan MD [address] [place] [address] Social History Tobacco Use Types Packs/Day Years Used Date Smoking Tobacco: Never Assessed Comments Unknown Sex and Gender Information Value Date Recorded Sex Assigned at Not on file Legal Sex Female 3:06 AM TECHNICIAN SUPPORT ASSOCIATION Gender Identity Not on file Sexual Orientation [...] documented as of this encounter Care Teams Twisting Machine Operator Relationship Specialty Start Date End Date Jerardo Palmer MD [address] [place] [address] PCP - General Internal Medicine 02/05/14 documented as of this encounter
--- OUTSIDE RECORDS SUMMARY | 2024-08-09 00:36 | XMS_ITS | Encounter Summary ---
Author Organization [email or web address] Address [address] [place] [address] Care Team Providers Care Gunner'S Mate M Name Role Phone Jerardo Palmer MD Primary Care Provider [phone] Encounter Details Date Type Department Care Team (Late st Contact Info) Description 10/25/2004 Outpatient Historical [place] [id number] [address] Vikki Morgan MD [address] [place] [address] Social History Tobacco Use Types Packs/Day Years Used Date Smoking Tobacco: Never Assessed Comments Unknown Sex and Gender Information Value Date Recorded Sex Assigned at Not on file Legal Sex Female 3:06 AM PASSENGER SERVICE REPRESENTATIVE Gender Identity Not on file Sexual [...] documented as of this encounter Care Teams Gunner'S Mate M Relationship Specialty Start Date End Date Jerardo Palmer MD [address] [place] [address] PCP - General Internal Medicine 02/05/14 documented as of this encounter
--- OUTSIDE RECORDS SUMMARY | 2024-08-09 00:36 | XMS_ITS | Encounter Summary ---
Author Organization [facility] Address [address] [place] [address] Care Team Providers Care Campus Police Officer Name Role Phone Jerardo Palmer MD Primary Care Provider [phone] Encounter Details Date Type Department Care Team (Late st Contact Info) Description 01/13/2006 Outpatient Historical [place] 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
--- OUTSIDE RECORDS SUMMARY | 2024-08-09 00:36 | XMS_ITS | Encounter Summary ---
Author Organization [facility] Address [address] [place] [address] Care Team Providers Care Sprinkling Truck Driver Name Role Phone Jerardo Palmer MD Primary Care Provider [phone] Encounter Details Date Type Department Care Team (Late st Contact Info) Description 01/12/2006 Outpatient Historical [place] 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
--- OUTSIDE RECORDS SUMMARY | 2024-08-09 00:36 | XMS_ITS | Encounter Summary ---
Author Organization [facility] Address [address] [place] [address] Care Team Providers Care Supervisor Adult Education Name Role Phone Jerardo Palmer MD Primary Care Provider [phone] Encounter Details Date Type Department Care Team (Late st Contact Info) Description 01/29/2007 Outpatient Historical [place] 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
--- OUTSIDE RECORDS SUMMARY | 2024-08-09 00:36 | XMS_ITS | Encounter Summary ---
Author Organization [facility] Address [address] [place] [address] Care Team Providers Care Cage Operator Name Role Phone Jerardo Palmer MD Primary Care Provider [phone] Encounter Details Date Type Department Care Team (Late st Contact Info) Description 02/05/2004 Outpatient Historical Division of Neurology [address] [address] Vikki Morgan MD [address] [facility] [address] [place] [address] Social History Tobacco Use Types Packs/Day Years Used Date Smoking Tobacco: Never Assessed Comments Unknown Sex and Gender Information Value Date Recorded Sex Assigned at Not on file 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 Female 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 Gender Identity Not on file Sexual Orientation Not on file documented as of this encounter Plan of Treatment Not on file documented as of this encounter Visit Diagnoses Not on filedocumented in this encounter Additional Health Concerns Infection Onset Date Last Indicated Resolved Time MRSA Comment:eilzabeth 11/02/2012Resolved per Type and Duration of Precautions Recommended for Selected Infections and Conditions document 2023 update 11/05/2012 11/05/201212/09 10:08 AM CDT documented as of this encounter Care Teams Cage Operator Relationship Specialty Start Date End Date Jerardo Palmer MD [address] [place] [address] PCP - General Internal Medicine 02/05/14 documented as of this encounter
--- OUTSIDE RECORDS SUMMARY | 2024-08-09 00:36 | XMS_ITS | Encounter Summary ---
Author Organization [facility] Address [address] [place] [address] Care Team Providers Care Intranet Specialist Name Role Phone Giancarlo Barcenas MD Primary Care Provider [phone] Encounter Details Date Type Department Care Team (Late st Contact Info) Description 08/11/2020 Telephone [facility] Radiology [address] [place] [address] Vikki Morgan MD [address] [place] [address] Social History Tobacco Use Types Packs/Day Years Used Date Smoking Tobacco: Former Smokeless Tobacco: Never Comments:quit in 2012 Alcohol Use Standard Drinks/Week Comments No 0 (1 standard drink = 0.6 oz pur e alcohol) Comments Unknown Sex and Gender Information Value Date Recorded Sex Assigned at Not on file 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
--- OUTSIDE RECORDS SUMMARY | 2024-08-09 00:36 | XMS_ITS | Encounter Summary ---
Author Organization [facility] Address [address] [place] [address] Care Team Providers Care Store Deli Manager Name Role Phone Jerardo Palmer MD Primary Care Provider [phone] Encounter Details Date Type Department Care Team (Late st Contact Info) Description 01/12/2006 Outpatient Historical [place] 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
--- OUTSIDE RECORDS SUMMARY | 2024-08-09 00:37 | XMS_ITS | Encounter Summary ---
Author Organization [facility] Address [address] [place] [address] Care Team Providers Care Glue Wheel Operator Name Role Phone Giancarlo Barcenas MD Primary Care Provider [phone] Encounter Details Date Type Department Care Team (Late st Contact Info) Description 12/12/2023 Telephone [facility] [address] [address] Argelia Meléndez, RN Social History Tobacco Use Types Packs/Day Years Used Date Smoking Tobacco: Former Cigarettes 0.5 10 2 003 - 2013 Smokeless Tobacco: Never Comments:quit in 2012 Alcohol Use Standard Drinks/Week Comments No 0 (1 standard drink = 0.6 oz pur e alcohol) Comments Unknown Sex and Gender Information Value Date Recorded Sex Assigned at Not on file 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
--- OUTSIDE RECORDS SUMMARY | 2024-08-09 00:37 | XMS_ITS | Encounter Summary ---
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
--- OUTSIDE RECORDS SUMMARY | 2024-08-09 00:37 | XMS_ITS | Encounter Summary ---
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
--- OUTSIDE RECORDS SUMMARY | 2024-08-09 00:37 | XMS_ITS | Encounter Summary ---
Author Organization [facility] Address [address] [place] [address] Care Team Providers Care Milieu Coordinator Name Role Phone Giancarlo Barcenas MD Primary Care Provider [phone] Encounter Details Date Type Department Care Team (Late st Contact Info) Description 10/04/[address] 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
--- NOTE | 2024-08-09 07:15 | WPDHPUPDATE1 ---
History and Physical Update Update Date/Time: 08/09/24 07:15 History and Physical has been reviewed, including an updated exam of the patient. There are NO changes in the patient's condition. Risks, benefits, and alternatives have been discussed and questions answered. Patient agrees to proceed with procedure.
[2024-08-09 07:57] VITALS: BP 151/84; PULSE 82; RESP 16; TEMP 36.7; O2SAT 99
[2024-08-09] MEDS: BOTULINUM TOXIN TYPE A (*SPLP) 100 UNITS VIAL XX (08:28)
[2024-08-09] MEDS: BOTULINUM TOXIN TYPE A (*SPLP) 100 UNITS VIAL 200 UNITS XX (08:28)
[2024-08-09] MEDS: BUPivacaine HCL 0.5% PF 30 ML VIAL INFILTRATE (08:28)
[2024-08-09] MEDS: LIDOCAINE 2% GEL UROJET 10 ML PKG MUCOUS MEM (08:28)
[2024-08-09 08:33] VITALS: BP 164/78; PULSE 78; RESP 16; O2SAT 95
[2024-08-09 08:43] VITALS: BP 146/76; PULSE 75; RESP 16; O2SAT 95
[2024-08-09 08:53] VITALS: BP 100/66; PULSE 66; RESP 12; O2SAT 94
--- NOTE | 2024-08-09 09:02 | W.PM.PROC2 ---
Procedure Note - Detailed Date of Procedure 08/09/24 Pre-op Diagnosis reflex, neuropathic bladder Post-op Diagnosis Same Procedure Performed Injection of Botox 300 units Surgeon Raman Tracy MD Anesthesia Local Indications She has neurogenic bladder secondary to multiple sclerosis. We do Botox every 3-4 months Findings Uncomplicated Botox injection Description of Procedure She was correctly identified. Informed consent obtained. From the operating room. She was placed in dorsal lithotomy position. She was prepped and draped sterile fashion. Time-out performed. I any put lidocaine jelly in the urethra. I put 20 cc of local in the bladder and allowed to sit. I then performed cystoscopy. She had a normal-appearing bladder without significant redness. No tumors. I then injected 300 units of Botox in 30 separate injections throughout the bladder the sub urothelial layer. There was minimal bleeding the injection sites. The bladder was drained. She was taken to the recovery room in stable condition. Estimated Blood Loss 1 Pathology None sent Complications No immediate complications Condition Stable Disposition PACU
[2024-08-09 11:55] VITALS: BMI 43.4
== END 2024-08-09 09:21 | disposition home or self-care (01) ==
PROVIDERS: PCP Family Medicine; Visit Provider Urology
PROC: 3E0K8GC Introduction of Other Therapeutic Substance into Genitourinary Tract, Via Natural or Artificial Opening Endoscopic (ICD-10-PCS; CPT 52287; principal; 2024-08-09 08:30)
DX: N31.8 Other neuromuscular dysfunction of bladder (principal); G35 Multiple sclerosis; E78.5 Hyperlipidemia, unspecified; F41.9 Anxiety disorder, unspecified; J45.909 Unspecified asthma, uncomplicated; M19.90 Unspecified osteoarthritis, unspecified site; F12.90 Cannabis use, unspecified, uncomplicated; Z79.891 Long term (current) use of opiate analgesic; Z98.890 Other specified postprocedural states; Z87.891 Personal history of nicotine dependence; Z80.0 Family history of malignant neoplasm of digestive organs; Z82.49 Family history of ischemic heart disease and other diseases of the circulatory system
CPT/HCPCS: 52287; J0585

== ENCOUNTER 2024-12-16 01:10 | Day surgery (SDC) | payer MEDICARE, SELFPAY ==
--- NOTE | 2024-12-11 09:14 | PC.NURSE ---
Report to the Outpatient Waiting Room, entrance under the green pavilion located off [facility], at time _1000_ on date _[id number]_. Planned Procedure Time: _1100_.? Time changes happen often and if your time is changed the preop area will call you the afternoon before. - You and your visitor will be asked to self-screen and do not enter if you have any COVID symptoms. Please call surgeon if you need to reschedule. - A mask is optional within the hospital at this time. No smoking, or chewing tobacco (or any form of nicotine). Ok for light breakfast. Take only the following medications with a SIP of water on the morning of surgery: ___All medications OK___ DO NOT STOP ANY OF YOUR OTHER PRESCRIPTION MEDICATIONS PRIOR TO SURGERY EXCEPT THE FOLLOWING Hold all vitamins and supplements for 3 days per anesthesiologist. Medications to discontinue per physician Date to take last dose Please no make-up, nail malaysian, hairspray, perfume, deodorant, or body powder the day of surgery.? No jewelry (including any body piercings) or valuables the day of surgery, leave them at home.? Please take a shower or bath the night before, or the morning of, surgery with an antibacterial soap.? Wear comfortable, loose fitting clothing.? - Jewelry must be removed prior to entering the operating room.? Rings and piercings that are not removed may be cut off. - The hospital will not accept responsibility for valuables.? - Please leave all valuables, including medications, at home the day of surgery. -Patient coming by bus and has a person with her. Follow any additional instructions given to you from your surgeon. Telephone instructions given to ___Amy__and asked if any additional questions and then verbalized understanding. Patient advised to call surgeon office or pre surgery nurse liaison [phone] if any additional questions.
[2024-12-11 09:27] VITALS: BMI 43.4
--- NOTE | 2024-12-13 09:05 | PM.IMHP ---
H&P: HPI History of Present Illness Date/Time: 12/13/24 09:05 Chief Complaint: Neurogenic bladder Narrative: repeat Botox injection 300 units Review of Systems Review of Systems: All systems reviewed & are unremarkable except as noted in HPI and below PMFSH Past Medical History Medical History Morbid obesity with BMI of 40.0-44.9, adult Hyperlipidemia Spastic neurogenic bladders Cholecystectomy planned Multiple sclerosis Arthritis Anxiety Asthma Allergies Uninhibited neurogenic bladder Surgical History Surgical History [place] teeth removed H/O dilation and curettage S/P Botox injection Family History Family History Father Diabetes mellitus Hypertension Depression Anxiety Heart disease Carcinoma of colon Mother Depression Anxiety Multiple sclerosis Grandparent Asthma Diabetes mellitus Alcoholism Cerebrovascular accident Disorder of thyroid Social History Social History Smoking packs per day: 0.5 Smoking cigarettes per day: 10.0 Years smoked: 3 Smoking pack-years: 1.50 Smoking status: Former smoker Tobacco type: cigarettes Second hand tobacco smoke exposure: No Smoking end date: 07/30/98 Additional smoking assessment comments: many years ago-provides no further info Alcohol intake: former Alcohol use details: very rare Substance use: former Substance use type: marijuana Last use: years ago Living arrangements: alone Additional living arrangements comments: PATIENT HAS A INSOLE STIFFENER RUSS THAT IS WITH HER DURING THE DAY Spiritual care concerns: No Meds Home Medications and Allergies Home Medications ?Medication ?Instructions ?Recorded ?Confirmed ?Type baclofen 20 mg tablet 20 mg PO BID 11/11/21 12/11/24 History cholecalciferol (vitamin D3) 50 50 mcg PO DAILY 11/11/21 12/11/24 History mcg (2,000 unit) capsule (Vitamin D3) duloxetine 60 mg capsule,delayed 60 mg PO DAILY 11/11/21 12/11/24 History release methylphenidate HCl 20 mg biphasic 20 mg PO TID 11/11/21 12/11/24 History 30-70 capsule,extended release multivitamin 1 tablet PO DAILY 11/11/21 12/11/24 History venlafaxine 150 mg 150 mg PO DAILY 11/11/21 12/11/24 History capsule,extended release 24 hr venlafaxine 75 mg tablet,extended 75 mg PO DAILY 11/11/21 12/11/24 History release 24 hr docusate sodium 100 mg capsule 100 mg PO BID 11/16/21 12/11/24 History (Dulcolax Stool Softener (docusate)) hydrocodone 5 mg-acetaminophen 325 1 tablet PO Q8H PRN Pain 11/16/21 12/11/24 History mg tablet diazepam 2 mg tablet 2 mg PO PRN PRN Anxiety 03/01/23 12/11/24 History cranberry extract 250 mg tablet 500 mg PO DAILY 09/12/23 12/11/24 History Allergies Allergy/AdvReac Type Severity Reaction Status Date / Time adhesive tape AdvReac Mild Rash Verified 12/11/24 09:21 Exam Narrative: no acute distress alert and oriented x3 wheelchair-bound Assessment and Plan Assessment and plan (1) Uninhibited neurogenic bladder: Code(s): N31.9 - Neuromuscular dysfunction of bladder, unspecified Status: Acute Assessment and Plan: cystoscopy with injection of Botox 300 units
--- NOTE | 2024-12-16 07:15 | WPDHPUPDATE1 ---
History and Physical Update Update Date/Time: 12/16/24 07:15 History and Physical has been reviewed, including an updated exam of the patient. There are NO changes in the patient's condition. Risks, benefits, and alternatives have been discussed and questions answered. Patient agrees to proceed with procedure.
[2024-12-16 10:05] VITALS: BP 124/74; PULSE 87; RESP 18; TEMP 36.6; O2SAT 94
[2024-12-16 11:00] VITALS: BP 116/81; PULSE 89; RESP 16; O2SAT 96
[2024-12-16 11:10] VITALS: BP 144/77; PULSE 81; RESP 16; O2SAT 97
[2024-12-16] MEDS: BOTULINUM TOXIN TYPE A (*SPLP) 100 UNITS VIAL 300 UNITS XX (11:14)
[2024-12-16] MEDS: LIDOCAINE 2% GEL UROJET 10 ML PKG MUCOUS MEM (11:15)
[2024-12-16 11:17] VITALS: BP 149/84; PULSE 85; RESP 16; O2SAT 98
[2024-12-16 11:23] VITALS: BP 137/87; PULSE 80; RESP 18; O2SAT 100
--- NOTE | 2024-12-16 11:27 | W.PM.PROC2 ---
Procedure Note - Detailed Date of Procedure 12/16/24 Pre-op Diagnosis reflux neuropathic bladder Post-op Diagnosis Same Procedure Performed Cystoscopy with injection of Botox 300 Surgeon Raman Tracy MD Anesthesia Local Indications She is here today for repeat Botox injection. She is asymptomatic in terms of infection which she is chronically colonized Description of Procedure She was correctly identified. Informed consent obtained. From the operating room. She was given Uro jet as local anesthesia. Cystoscopy was performed there was no irritation of her bladder. No erythema. She had moderate trabeculations. I mixed 300 units of Botox and 30 cc preservative-free saline. I injected throughout the bladder the sub urothelial muscular layer. I did 2 cc per injection spreading out throughout the bladder. There was minimal bleeding the injection sites. Bladder was drained. She was awakened transferred to PACU in stable condition. Estimated Blood Loss 1 Drains No Packing No Pathology None sent Complications No immediate complications Condition Stable Disposition PACU
== END 2024-12-16 12:30 | disposition home or self-care (01) ==
PROVIDERS: PCP Family Medicine; Visit Provider Urology
PROC: 3E0K8GC Introduction of Other Therapeutic Substance into Genitourinary Tract, Via Natural or Artificial Opening Endoscopic (ICD-10-PCS; CPT 52287; principal; 2024-12-16 11:00)
DX: N31.9 Neuromuscular dysfunction of bladder, unspecified (principal); G35 Multiple sclerosis
CPT/HCPCS: 52287; A9270; J0585